=== PATIENT | male | born 1960 | race Caucasian/White ===

== ENCOUNTER 2020-06-09 17:23 | Inpatient (IN) | payer OTHER, SELFPAY ==
[2020-06-09] VITALS (7 sets, daily range): BP systolic 137–141; BP diastolic 71–74; PULSE 74–86; RESP 18–28; TEMP 37.2; O2SAT 90–98; BMI 22.3
--- NOTE | ~2020-06-09 | XR_ITS ---
EXAMINATION: PORTABLE CHEST 1 VIEW CLINICAL INFORMATION: SOB . COMPARISON: 06/24/2013. TECHNIQUE: Portable frontal view of the chest was obtained. FINDINGS: The lungs are well expanded. Patchy bilateral airspace disease is seen bilaterally, new from the prior study. No superimposed effusion, edema, or pneumothorax. Cardiac and mediastinal silhouettes are within normal limits for technique. No acute bony abnormality seen. XR/XR chest 1V IMPRESSION: Patchy bilateral airspace disease new from the prior study. Early or atypical infectious etiology would be suspected. Clinical correlation would be recommended.
--- NOTE | ~2020-06-09 | CT_ITS ---
EXAMINATION: CT CHEST WITHOUT CONTRAST CLINICAL INFORMATION: Shortness of breath. Atypical infection. COMPARISON: Chest x-ray earlier today TECHNIQUE: Multidetector volumetric CT imaging of the chest was done. Axial MIP volume rendering provided. Sagittal and coronal reformatted images were obtained. This CT examination was performed using dose optimization techniques as appropriate, variously including the following: *Automated exposure control *Adjustment of mA and/or kV according to patient size (this includes techniques or standardized protocols for targeted exams where dose is matched to indication/reason for exam; i.e. extremities or head) *Use of iterative reconstruction technique DLP: 328 mGy-cm FINDINGS: The heart is normal in size. Coronary artery calcifications are present. There is no pericardial effusion. No gross mediastinal lymphadenopathy. No axillary lymphadenopathy. Ascending aorta is normal in size although there is mild aneurysmal dilatation of the distal descending thoracic aorta which measures up to 3.8 cm in maximum dimension. Central airways are patent. Filling defect dependently within the trachea statistically represents mucus. Some minimal peripheral mucous plugging is noted. The lungs are adequately aerated. Moderate diffuse emphysematous changes are noted with bullous changes particularly within the apices. There is no lobar consolidation appreciated. Mild lingular and right middle lobe opacities are nonspecific but suspected to represent atelectasis. Mild dependent opacities bilaterally are nonspecific. No suspicious pulmonary nodules. Visualized portions of the upper abdomen demonstrate a partially visualized but atrophic left kidney. Bilateral renal calcifications are nonspecific but suspected to be vascular in nature. A right renal artery stent is noted. Tiny gallstones are appreciated within an otherwise unremarkable appearing gallbladder. Mild scoliotic and moderate diffuse degenerative changes of the spine. Partially visualized cervical fusion hardware. CT/CT chest wo con IMPRESSION: 1. Moderate emphysema. 2. Mild dependent opacities bilaterally are nonspecific. Atelectasis is suspected, however, developing infiltrate is not excluded. Clinical correlation recommended. Follow-up imaging can be obtained as clinically indicated. 3. 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 4. Cholelithiasis.
--- NOTE | 2020-06-09 17:39 | ECG_ITS ---
Test Reason : SOB Blood Pressure : / mmHG Vent. Rate : 078 BPM Atrial Rate : 078 BPM P-R Int : 168 ms QRS Dur : 086 ms QT Int : 398 ms P-R-T Axes : 066 021 068 degrees QTc Int : 453 ms Normal sinus rhythm Possible Left atrial enlargement Borderline ECG When compared with ECG of 24-JUN-2013 16:29, QT has shortened Referred By: Jesu Hurtado Electronically Signed By:HINA BRYANT
[2020-06-09] MEDS: Albuterol Sulfate (0.083%) 2.5 MG/3 ML VIAL.NEB 7.5 MG INHALE (17:43)
--- NOTE | 2020-06-09 17:43 | ED.SOB ---
HPI - SOB/Dyspnea General Chief Complaint: Dyspnea Stated Complaint: COPD EXACERBATION Time Seen by Provider: 06/09/20 17:39 Source: EMS Mode of arrival: EMS Limitations: no limitations History of Present Illness HPI Narrative: 52-year-old male with history of COPD on O2 chronically at 3 L at home in addition to this he has history of hypertension, alcohol abuse who states he has been sober for the past 1 year who reports more frequently goes to [facility] he was there last month for pneumonia and then last week as well he was treated for aspiration pneumonia did a course of antibiotic where he was taking 2 antibiotics he finished those several days ago. States today he was walking to his car he became short of breath and COPD flare. States lung feels tight having difficult time breathing. EMS found him to be 88% with 3 L oxygen also complained of chest pain subsequently was given 324 aspirin and brought to the emergency room. Of note he did have his 2nd [place] the vaccination yesterday. MD elicited complaint: shortness of breath and chest pain Pertinent past history: COPD Onset (ago): hour(s) Context: recent illness Timing: constant Severity: severe Exacerbating factors: exertion Relieving factors: bronchodilators Associated symptoms: chest pain, pain with inspiration, cough and wheezing Related Data Home oxygen amount: 3 liters Home Medications Medication Instructions Recorded Confirmed albuterol sulfate 1 amp INHALATION Q6H PRN 06/09/20 06/09/20 aspirin 1 tab PO DAILY 06/09/20 06/09/20 atorvastatin 1 tab PO BEDTIME 06/09/20 06/09/20 buprenorphine-naloxone 2 strip SUBLINGUAL DAILY 06/09/20 06/09/20 carvedilol 1 tab PO BID 06/09/20 06/09/20 clonazepam 1 tab PO DAILY PRN 06/09/20 06/09/20 clopidogrel 1 tab PO DAILY 06/09/20 06/09/20 folic acid 1 tab PO DAILY 06/09/20 06/09/20 gabapentin 1 tab PO BID 06/09/20 06/09/20 hydralazine 2 tab PO TID 06/09/20 06/09/20 ipratropium-albuterol [Combivent 1 puff INHALATION QID 06/09/20 06/09/20 Respimat] isosorbide mononitrate 1 tab PO QAM 06/09/20 06/09/20 losartan 1 tab PO DAILY 06/09/20 06/09/20 mirtazapine 1 tab PO BEDTIME 06/09/20 06/09/20 nifedipine 1 tab PO DAILY 06/09/20 06/09/20 pantoprazole 1 tab PO BID 06/09/20 06/09/20 trazodone 1 tab PO BEDTIME 06/09/20 06/09/20 zolpidem 1 tab PO BEDTIME PRN 06/09/20 06/09/20 Allergies Allergy/AdvReac Type Severity Reaction Status Date / Time KERI Inhibitors Allergy Wheezing Verified 06/09/20 17:52 HAIR DYE Allergy Unknown HIVES Uncoded 11/14/19 15:39 Review of Systems Review of Systems: Constitutional: No Weight loss, No Fever, No Chills, No Night Sweats, No Fatigue, No Malaise ENT/Mouth: No Hearing loss, No Ear Pain, No Nasal Congestion, No Sinus Pain, No Hoarseness, No sore throat, No Rhinorrhea, No Swallowing Difficulty Eyes: No Eye Pain, No Swelling, No Redness, No Foreign Body, No Discharge, No Vision Changes Cardiovascular: + Chest Pain, + Dyspnea on Exertion, No Orthopnea, No Edema, No Palpitations Respiratory: No Cough, No Sputum, No Wheezing, No Dyspnea Gastrointestinal: No Nausea, No Vomiting, No Diarrhea, No Constipation, No abdominal Pain, No Hematochezia, No Melena Genitourinary: no irregular bleeding, No Dysuria, No Urinary Frequency, No Hematuria, No Urinary Incontinence, No Urgency, No Flank Pain, No Urinary Flow Changes, No Hesitancy Musculoskeletal: No joint pain, No Myalgias, No Joint Swelling Skin: No Skin Lesions, No rash Neuro: No Weakness, No Numbness, No Paresthesias, No Loss of Consciousness, No Dizziness, No Headache Psych: No Social Issues Heme/Lymph: No Bruising, No Bleeding,No Lymphadenopathy Endocrine: No Polyuria, No Polydipsia, No Temperature Intolerance Yes all other systems are reviewed and are negative [facility] Past Medical History Medical History (Updated 06/09/20 @ 22:32 by Jesu Hurtado NP) Alcohol abuse Congestive heart failure COPD (chronic obstructive pulmonary disease) Impetigo Social History Social History Alcohol intake: never Smoking Status: Current every day smoker Use of substances other than those prescribed or required for medical reasons: Yes Substance Use Type: Marijuana Substance Use Frequency: Occasionally Advance Directives: No Physical Exam Vital Signs: Vital Signs: Last Vital Signs Temp 98.9 F 06/09/20 20:55 Pulse 86 06/09/20 20:55 Resp 18 06/09/20 20:55 BP 137/71 06/09/20 20:55 Pulse Ox 94 06/09/20 20:55 Body Mass Index 22.3 Reviewed Const: General: in distress (Moderate; speaking in 2 word sentences and tachypneic 88% on 3 L) respiratory and anxious; No intoxicated appearing Nutritional Appearance: average body habitus Orientation/consciousness: patient oriented x3 HENMT: Head: Yes normal to inspection Ears: hearing grossly normal bilaterally Eyes: General: appearance normal, both eyes and all related structures Visual Golden: normal visual golden by confrontation Neck: Neck: Yes normal visual inspection, No positive Brudzinski's sign, No positive Kernig's sign and No tender Thyroid: Thyroid normal Chest: Chest palpation & inspection: normal inspection of the chest Resp: Effort & Inspection: normal respiratory effort and respiratory distress Auscultation: wheezes and diminished lung sounds Cardio: Jugular venous distension: no JVD Rate: tachycardic Heart sounds: S1 normal heart sound present and S2 normal heart sound present GI: Inspection: Yes normal to inspection Palpation (GI): Soft to palpation Percussion: Yes normal to percussion Auscultation: normal bowel sounds : General: Yes no CVA tenderness Back/Spine/Pelvis: Back: no CVA tenderness Skin: General skin exam: no rashes or lesions noted Neuro: General: patient oriented x3 Extrem: General: Yes normal to inspection Course Reevaluation(s) Reevaluation #1: 1800 In review 52-year-old male with above history presenting in moderate respiratory distress having COPD flare on home O2 88% on 3 L Recent hospitalization according to him at [facility] for aspiration pneumonia was doing well just finish course of 2 antibiotics Lab work including cardiac enzymes, lactic acid, blood culture, COVID started occasion labs ordered. Chest x-ray EKG ordered. Given his recent hospitalization and reported history sepsis focus workup initiated. He is placed on a 7 mg albuterol updraft directly upon arrival, Solu Medrol 125 Clinically does not appear in fluid overload. Infection is suspected will await labs including lactic acid and blood cultures and thereafter empirically treat with Zosyn and vancomycin. Reevaluation #2: 1928 Labs are still pending and have not been drawn yet. RN at bedside doing this at this time Zosyn and vancomycin ordered. Chest x-ray Patchy bilateral airspace disease new from the prior study. Early or atypical infectious etiology would be suspected. Clinical correlation would be recommended. Chest CT ordered. On exam he feels and appears much better than arrival. I will discuss case with hospitalist for admission. Consultations Consultation #1: 1934 Case discussed with hospitalist for admission aware that workup is pending but likely will need to come in for admission given his presentation and history. Dr. Portillo will come evaluate the patient for admission. MDM - SOB/Dyspnea Differential Diagnosis Differential diagnosis: Likely acute exacerbation of chronic obstructive airways disease, pneumonia and asthma with exacerbation; Unlikely pulmonary embolism, pleural effusion and sleep apnea Medical Records Attestation: I reviewed the patient's medical records. Lab Data Attestation: I reviewed the patient's lab results. Result diagrams: 06/09/20 19:30 06/09/20 19:44 Labs: Lab Results 06/09/20 06/09/20 06/09/20 Range/Units 19:30 19:30 19:30 WBC 14.5 H (4.8-10.8) X10*3/uL RBC 3.71 L (4.60-5.80) X10*6/uL Hgb 11.4 L (14.0-18.0) g/dl Hct 37.4 L (42-52) % MCV 100.8 H (80-98) fL MCH 30.7 (27.0-33.0) pg MCHC 30.5 L (31.0-36.0) g/dl RDW 14.4 (11.0-16.0) % Plt Count 330 (160-400) X10*3/uL MPV 9.9 (9.4-12.4) fL Immature Gran % (Auto) 0.4 (0.0-0.4) % Neut % (Auto) 80.2 H (45-73) % Lymph % (Auto) 9.8 L (20-40) % [place] % (Auto) 9.3 (2-11) % Eos % (Auto) 0.1 (0-4) % Baso % (Auto) 0.2 (0-2) % Lymph # (Auto) 1.4 (1.2-4.9) X10*3/uL [place] # (Auto) 1.3 H (0.1-1.2) X10*3/uL Eos # (Auto) 0.0 (0.0-0.4) X10*3/uL Baso # (Auto) 0.0 (0.0-0.2) X10*3/uL Abs Immat Gran (auto) 0.06 H (0.00-0.03) X10*3/uL Absolute Neuts (auto) 11.6 H (2.0-8.3) X10*3/uL Absolute Nucleated RBC 0.000 (0.0-0.012) X10*3/uL Nucleated RBC % (auto) 0.0 (0.0-0.2) /100WBC PT 11.1 (10.8-13.0) SEC INR 0.9 (0.9-1.1) APTT 31.2 (24.1-38.0) SEC D-Dimer 720 NG/ML O2 Saturation % ABG pH at Pt Temp (7.35-7.45) ABG pH (Temp Correct) (7.35-7.45) ABG pCO2 at Pt Temp (32-45) mmHg ABG pCO2 (Temp Corrct (32-45) mmHg ABG pO2 at Pt Temp (83-108) mmHg ABG pO2 (Temp Correct (83-108) ABG HCO3 (22-26) mmol/L ABG Base Excess (Actual) mmol/L Sodium Cancelled Potassium Cancelled Chloride Cancelled Carbon Dioxide Cancelled Anion Gap Cancelled BUN Cancelled Creatinine Cancelled Estim Creat Clear Calc Cancelled Estimated GFR Cancelled Random Glucose Cancelled Lactic Acid (0.5-2.0) mmol/L Calcium Cancelled Ferritin (20-250) ng/mL Total Bilirubin Cancelled AST Cancelled ALT Cancelled Alkaline Phosphatase Cancelled Lactate Dehydrogenase (118-273) U/L Troponin I High Sens (<3.5-35.0) ng/L C-Reactive Protein (< or = 0.50) mg/dL B-Natriuretic Peptide (<100) pg/mL Total Protein Cancelled Albumin Cancelled Procalcitonin ng/mL Urine Color Urine Appearance Urine pH (5.0-8.0) Ur Specific Crawford (1.005-1.025) Urine Protein (NEG-TRACE) MG/DL Urine Glucose (UA) (NEG) MG/DL Urine Ketones (NEG) MG/DL Urine Blood (NEG) Urine Nitrite (NEG) Ur Leukocyte Esterase (NEG) Urine RBC (0) /HPF Urine WBC (0-4) /HPF Ur Squamous Epith Cells /LPF Urine Bacteria /LPF Coronavirus (PCR) (Negative) Influenza Type A (PCR) (Negative) Influenza Type B (PCR) (Negative) RSV RNA Qual (PCR) (Negative) 06/09/20 06/09/20 06/09/20 Range/Units 19:30 19:30 19:31 WBC (4.8-10.8) X10*3/uL RBC (4.60-5.80) X10*6/uL Hgb (14.0-18.0) g/dl Hct (42-52) % MCV (80-98) fL MCH (27.0-33.0) pg MCHC (31.0-36.0) g/dl RDW (11.0-16.0) % Plt Count (160-400) X10*3/uL MPV (9.4-12.4) fL Immature Gran % (Auto) (0.0-0.4) % Neut % (Auto) (45-73) % Lymph % (Auto) (20-40) % [place] % (Auto) (2-11) % Eos % (Auto) (0-4) % Baso % (Auto) (0-2) % Lymph # (Auto) (1.2-4.9) X10*3/uL [place] # (Auto) (0.1-1.2) X10*3/uL Eos # (Auto) (0.0-0.4) X10*3/uL Baso # (Auto) (0.0-0.2) X10*3/uL Abs Immat Gran (auto) (0.00-0.03) X10*3/uL Absolute Neuts (auto) (2.0-8.3) X10*3/uL Absolute Nucleated RBC (0.0-0.012) X10*3/uL Nucleated RBC % (auto) (0.0-0.2) /100WBC PT (10.8-13.0) SEC INR (0.9-1.1) APTT (24.1-38.0) SEC D-Dimer NG/ML O2 Saturation % ABG pH at Pt Temp (7.35-7.45) ABG pH (Temp Correct) (7.35-7.45) ABG pCO2 at Pt Temp (32-45) mmHg ABG pCO2 (Temp Corrct (32-45) mmHg ABG pO2 at Pt Temp (83-108) mmHg ABG pO2 (Temp Correct (83-108) ABG HCO3 (22-26) mmol/L ABG Base Excess (Actual) mmol/L Sodium Potassium Chloride Carbon Dioxide Anion Gap BUN Creatinine Estim Creat Clear Calc Estimated GFR Random Glucose Lactic Acid 0.5 (0.5-2.0) mmol/L Calcium Ferritin (20-250) ng/mL Total Bilirubin AST ALT Alkaline Phosphatase Lactate Dehydrogenase (118-273) U/L Troponin I High Sens 20.9 (<3.5-35.0) ng/L C-Reactive Protein (< or = 0.50) mg/dL B-Natriuretic Peptide 143 H (<100) pg/mL Total Protein Albumin Procalcitonin ng/mL Urine Color YELLOW Urine Appearance CLEAR Urine pH 7.0 (5.0-8.0) Ur Specific Crawford 1.015 (1.005-1.025) Urine Protein NEG (NEG-TRACE) MG/DL Urine Glucose (UA) NEG (NEG) MG/DL Urine Ketones NEG (NEG) MG/DL Urine Blood NEG (NEG) Urine Nitrite NEG (NEG) Ur Leukocyte Esterase NEG (NEG) Urine RBC 0 (0) /HPF Urine WBC 0 (0-4) /HPF Ur Squamous Epith Cells NONE /LPF Urine Bacteria NONE /LPF Coronavirus (PCR) (Negative) Influenza Type A (PCR) (Negative) Influenza Type B (PCR) (Negative) RSV RNA Qual (PCR) (Negative) 06/09/20 06/09/20 06/09/20 Range/Units 19:43 19:44 19:44 WBC (4.8-10.8) X10*3/uL RBC (4.60-5.80) X10*6/uL Hgb (14.0-18.0) g/dl Hct (42-52) % MCV (80-98) fL MCH (27.0-33.0) pg MCHC (31.0-36.0) g/dl RDW (11.0-16.0) % Plt Count (160-400) X10*3/uL MPV (9.4-12.4) fL Immature Gran % (Auto) (0.0-0.4) % Neut % (Auto) (45-73) % Lymph % (Auto) (20-40) % [place] % (Auto) (2-11) % Eos % (Auto) (0-4) % Baso % (Auto) (0-2) % Lymph # (Auto) (1.2-4.9) X10*3/uL [place] # (Auto) (0.1-1.2) X10*3/uL Eos # (Auto) (0.0-0.4) X10*3/uL Baso # (Auto) (0.0-0.2) X10*3/uL Abs Immat Gran (auto) (0.00-0.03) X10*3/uL Absolute Neuts (auto) (2.0-8.3) X10*3/uL Absolute Nucleated RBC (0.0-0.012) X10*3/uL Nucleated RBC % (auto) (0.0-0.2) /100WBC PT (10.8-13.0) SEC INR (0.9-1.1) APTT (24.1-38.0) SEC D-Dimer NG/ML O2 Saturation % ABG pH at Pt Temp (7.35-7.45) ABG pH (Temp Correct) (7.35-7.45) ABG pCO2 at Pt Temp (32-45) mmHg ABG pCO2 (Temp Corrct (32-45) mmHg ABG pO2 at Pt Temp (83-108) mmHg ABG pO2 (Temp Correct (83-108) ABG HCO3 (22-26) mmol/L ABG Base Excess (Actual) mmol/L Sodium 142 Potassium 3.7 Chloride 87 L Carbon Dioxide 42 H* Anion Gap 17 BUN 19 H Creatinine 1.27 Estim Creat Clear Calc 65.0 Estimated GFR 58 Random Glucose 114 Lactic Acid (0.5-2.0) mmol/L Calcium 9.0 Ferritin 12 L (20-250) ng/mL Total Bilirubin 0.2 AST 14 ALT 12 Alkaline Phosphatase 59 Lactate Dehydrogenase 172 (118-273) U/L Troponin I High Sens (<3.5-35.0) ng/L C-Reactive Protein 0.30 (< or = 0.50) mg/dL B-Natriuretic Peptide (<100) pg/mL Total Protein 6.5 Albumin 4.2 Procalcitonin 0.03 ng/mL Urine Color Urine Appearance Urine pH (5.0-8.0) Ur Specific [place] (1.005-1.025) Urine Protein (NEG-TRACE) MG/DL Urine Glucose (UA) (NEG) MG/DL Urine Ketones (NEG) MG/DL Urine Blood (NEG) Urine Nitrite (NEG) Ur Leukocyte Esterase (NEG) Urine RBC (0) /HPF Urine WBC (0-4) /HPF Ur Squamous Epith Cells /LPF Urine Bacteria /LPF Coronavirus (PCR) NEGATIVE (Negative) Influenza Type A (PCR) NEGATIVE (Negative) Influenza Type B (PCR) NEGATIVE (Negative) RSV RNA Qual (PCR) NEGATIVE (Negative) 06/09/20 Range/Units 20:51 WBC (4.8-10.8) X10*3/uL RBC (4.60-5.80) X10*6/uL Hgb (14.0-18.0) g/dl Hct (42-52) % MCV (80-98) fL MCH (27.0-33.0) pg MCHC (31.0-36.0) g/dl RDW (11.0-16.0) % Plt Count (160-400) X10*3/uL MPV (9.4-12.4) fL Immature Gran % (Auto) (0.0-0.4) % Neut % (Auto) (45-73) % Lymph % (Auto) (20-40) % [place] % (Auto) (2-11) % Eos % (Auto) (0-4) % Baso % (Auto) (0-2) % Lymph # (Auto) (1.2-4.9) X10*3/uL [place] # (Auto) (0.1-1.2) X10*3/uL Eos # (Auto) (0.0-0.4) X10*3/uL Baso # (Auto) (0.0-0.2) X10*3/uL Abs Immat Gran (auto) (0.00-0.03) X10*3/uL Absolute Neuts (auto) (2.0-8.3) X10*3/uL Absolute Nucleated RBC (0.0-0.012) X10*3/uL Nucleated RBC % (auto) (0.0-0.2) /100WBC PT (10.8-13.0) SEC INR (0.9-1.1) APTT (24.1-38.0) SEC D-Dimer NG/ML O2 Saturation 94.0 % ABG pH at Pt Temp 7.35 (7.35-7.45) ABG pH (Temp Correct) 7.35 (7.35-7.45) ABG pCO2 at Pt Temp 98 H* (32-45) mmHg ABG pCO2 (Temp Corrct 99 H* (32-45) mmHg ABG pO2 at Pt Temp 74 L (83-108) mmHg ABG pO2 (Temp Correct 75 L (83-108) ABG HCO3 55 H (22-26) mmol/L ABG Base Excess (Actual) 23.6 mmol/L Sodium Potassium Chloride Carbon Dioxide Anion Gap BUN Creatinine Estim Creat Clear Calc Estimated GFR Random Glucose Lactic Acid (0.5-2.0) mmol/L Calcium Ferritin (20-250) ng/mL Total Bilirubin AST ALT Alkaline Phosphatase Lactate Dehydrogenase (118-273) U/L Troponin I High Sens (<3.5-35.0) ng/L C-Reactive Protein (< or = 0.50) mg/dL B-Natriuretic Peptide (<100) pg/mL Total Protein Albumin Procalcitonin ng/mL Urine Color Urine Appearance Urine pH (5.0-8.0) Ur Specific [place] (1.005-1.025) Urine Protein (NEG-TRACE) MG/DL Urine Glucose (UA) (NEG) MG/DL Urine Ketones (NEG) MG/DL Urine Blood (NEG) Urine Nitrite (NEG) Ur Leukocyte Esterase (NEG) Urine RBC (0) /HPF Urine WBC (0-4) /HPF Ur Squamous Epith Cells /LPF Urine Bacteria /LPF Coronavirus (PCR) (Negative) Influenza Type A (PCR) (Negative) Influenza Type B (PCR) (Negative) RSV RNA Qual (PCR) (Negative) Imaging Data Chest CT: Radiologist's impression: Jose Luis Alex 60 M [address] [id number] Scan ReportSigned Patient: Jose Luis Alex JMR#: [id number]: [id number]:[id number]/Sex: 60 / MADM Date: 06/09/20Loc: EDAttending Dr: Ordering Physician: Jesu Hurtado NP Date of Service: 06/09/20 Procedure(s): CT chest wo con Accession Number(s): [id number] cc: Jesu Hurtado LOCKSTITCH COLLAR SETTER~ EXAMINATION: CT CHEST WITHOUT CONTRAST CLINICAL INFORMATION: Shortness of breath. Atypical infection. COMPARISON: Chest x-ray earlier today TECHNIQUE: Multidetector volumetric CT imaging of the chest was done. Axial MIP volume rendering provided. Sagittal and coronal reformatted images were obtained. This CT examination was performed using dose optimization techniques as appropriate, variously including the following: *Automated exposure control *Adjustment of mA and/or kV according to patient size (this includes techniques or standardized protocols for targeted exams where dose is matched to indication/reason for exam; i.e. extremities or head) *Use of iterative reconstruction technique DLP: 328 mGy-cm FINDINGS: The heart is normal in size. Coronary artery calcifications are present. There is no pericardial effusion. No gross mediastinal lymphadenopathy. No axillary lymphadenopathy. Ascending aorta is normal in size although there is mild aneurysmal dilatation of the distal descending thoracic aorta which measures up to 3.8 cm in maximum dimension. Central airways are patent. Filling defect dependently within the trachea statistically represents mucus. Some minimal peripheral mucous plugging is noted. The lungs are adequately aerated. Moderate diffuse emphysematous changes are noted with bullous changes particularly within the apices. There is no lobar consolidation appreciated. Mild lingular and right middle lobe opacities are nonspecific but suspected to represent atelectasis. Mild dependent opacities bilaterally are nonspecific. No suspicious pulmonary nodules. Visualized portions of the upper abdomen demonstrate a partially visualized but atrophic left kidney. Bilateral renal calcifications are nonspecific but suspected to be vascular in nature. A right renal artery stent is noted. Tiny gallstones are appreciated within an otherwise unremarkable appearing gallbladder. Mild scoliotic and moderate diffuse degenerative changes of the spine. Partially visualized cervical fusion hardware. CT/CT chest wo con IMPRESSION: 1. Moderate emphysema. 2. Mild dependent opacities bilaterally are nonspecific. Atelectasis is suspected, however, developing infiltrate is not excluded. Clinical correlation recommended. Follow-up imaging can be obtained as clinically indicated. 3. 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 4. Cholelithiasis. Dictated By:FISH CLAY MDSigned By:<Electronically signed by FISH CLAY MD in [place]>06/09/202056 DD/ 29TD/TT: [employer] Supervisor: Chest x-ray: Radiologist's impression: [address] [id number] ReportSigned Patient: Jose Luis Alex JMR#: [id number]: 1960cct:[id number]/Sex: 60 / MADM Date: 06/09/20Loc: EDAttending Dr: Ordering Physician: Jesu Hurtado NP Date of Service: 06/09/20 Procedure(s): XR chest 1V Accession Number(s): [id number] cc: Jesu Hurtado LOCKSTITCH COLLAR SETTER~ EXAMINATION: PORTABLE CHEST 1 VIEW CLINICAL INFORMATION: SOB . COMPARISON: 06/24/2013. TECHNIQUE: Portable frontal view of the chest was obtained. FINDINGS: The lungs are well expanded. Patchy bilateral airspace disease is seen bilaterally, new from the prior study. No superimposed effusion, edema, or pneumothorax. Cardiac and mediastinal silhouettes are within normal limits for technique. No acute bony abnormality seen. XR/XR chest 1V IMPRESSION: Patchy bilateral airspace disease new from the prior study. Early or atypical infectious etiology would be suspected. Clinical correlation would be recommended. Dictated By:ARY ANAND MDSigned By:<Electronically signed by ARY ANAND MD in [place]>06/09/20 1755 DD/ 1739TD/TT: [employer] Supervisor: SIDNEY Discharge Plan Discharge Clinical Impression: COPD exacerbation Patient Disposition: Admitted As Inpatient
[2020-06-09 19:39] LABS: Appearance Urine CLEAR; Color Urine YELLOW; Glucose Urine UA NEG (NEG); Leukocyte Esterase Urine NEG (NEG); Nitrite Urine NEG (NEG); Specific Gravity - Urine 1.015 (1.005-1.025); Urine Blood NEG (NEG); Urine Ketones NEG (NEG); Urine Protein NEG (NEG-TRACE)
[2020-06-09 19:44] LABS: MANUAL DIFF FLAG NO
[2020-06-09 19:45] LABS: Basophils Percent Auto 0.2 % (0-2); Eosinophils Percent Auto 0.1 % (0-4); Hematocrit 37.4 % (42-52); Hemoglobin 11.4 g/dl (14.0-18.0); INTERNATIONAL NORM RATIO 0.9 (0.9-1.1); Imm Gran Abs Auto 0.06 X10*3/uL (0.00-0.03); Imm Gran Pct Auto 0.4 % (0.0-0.4); Lymphocytes Absolute Auto 1.4 X10*3/uL (1.2-4.9); Lymphocytes Percent Auto 9.8 % (20-40); Mean Corpuscular HGB Conc 30.5 g/dl (31.0-36.0); Mean Corpuscular Hemoglobin 30.7 pg (27.0-33.0); Mean Corpuscular Volume 100.8 fL (80-98); Mean Platelet Volume 9.9 fL (9.4-12.4); Monocytes Absolute Auto 1.3 X10*3/uL (0.1-1.2); Monocytes Percent Auto 9.3 % (2-11); Neutrophils Absolute Auto 11.6 X10*3/uL (2.0-8.3); Neutrophils Percent Auto 80.2 % (45-73); Platelet Count 330 X10*3/uL (160-400); Prothrombin Time 11.1 SEC (10.8-13.0); Red Blood Count 3.71 X10*6/uL (4.60-5.80); Red Cell Distribution Width 14.4 % (11.0-16.0); White Blood Count 14.5 X10*3/uL (4.8-10.8)
[2020-06-09 19:46] LABS: RBC Urine 0 /HPF (0); WBC Urine 0 /HPF (0-4)
[2020-06-09 19:48] LABS: D Dimer 720 NG/ML; Partial Thromboplastin Time 31.2 SEC (24.1-38.0)
[2020-06-09] MEDS: 0.9 % Sodium Chloride 500 ML IV (19:48)
[2020-06-09] MEDS: methylPREDNISolone Sod Succ 125 MG/2 ML VIAL IVPUSH (19:48)
[2020-06-09] MEDS: Piperacillin Sodium/Tazobactam 3.375 GM in 0.9 % Sodium Chloride 50 ML IV (19:48)
[2020-06-09 20:03] LABS: Lactic Acid 0.5 mmol/L (0.5-2.0)
[2020-06-09 20:13] LABS: B Type Natriuretic Peptide 143 pg/mL (<100); Troponin-I High Sensitivity 20.9 ng/L (<3.5-35.0)
[2020-06-09 20:25] LABS: Alanine Aminotransferase 12 U/L (0-40); Albumin Level 4.2 g/dL (3.5-5.0); Alkaline Phosphatase 59 U/L (39-117); Aspartate Amino Transferase 14 U/L (5-37); Bilirubin Total 0.2 mg/dL (0.0-1.0); Blood Urea Nitrogen 19 mg/dL (9-16); Estimated Glomerular Filt Rate 58; Glucose Random 114 mg/dL (60-115); Total Protein 6.5 g/dL (6.5-8.0)
[2020-06-09 20:33] LABS: Influenza A PCR NEGATIVE (Negative); Influenza B PCR NEGATIVE (Negative); Resp Syncy Virus RNA Qual PCR NEGATIVE (Negative); SARS COV2 PCR INHOUSE NEGATIVE (Negative)
[2020-06-09 20:39] LABS: Anion Gap 17 (12-20); Carbon Dioxide 42 mmol/L (22-29); Chloride 87 mmol/L (96-108); Lactate Dehydrogenase 172 U/L (118-273); Potassium 3.7 mmol/L (3.3-5.1); Sodium 142 mmol/L (135-145)
[2020-06-09 20:40] LABS: Procalcitonin 0.03 ng/mL
[2020-06-09] MEDS: vancomycin HCL 1,000 MG in 0.9 % Sodium Chloride 250 ML 270 MG IV (20:40)
[2020-06-09] MEDS: clonazePAM 0.5 MG TABLET PO (20:40)
--- NOTE | 2020-06-09 20:40 | PC.NURSE ---
Vancomycin delayed as patient was in CT. Medication administered per emar as noted
[2020-06-09 20:43] LABS: Ferritin 12 ng/mL (20-250)
[2020-06-09 21:00] LABS: ABG Refer to POC result
[2020-06-09 21:00] LABS: ABG Base Excess 23.6 mmol/L; ABG HCO3 55 mmol/L (22-26); ABG pCO2 98 mmHg (32-45); ABG pCO2 TC 99 mmHg (32-45); ABG pH 7.35 (7.35-7.45); ABG pH TC 7.35 (7.35-7.45); ABG pO2 74 mmHg (83-108); ABG pO2 TC 75 (83-108)
--- NOTE | 2020-06-09 21:14 | PM.IMHP ---
History of Present Illness Date of Service: 06/09/20 Chief Complaint: SOB 60-year-old male with a past medical history of hypertension, hyperlipidemia, opiate dependence on Suboxone, COPD on 3 L of home oxygen, presented to the hospital with a chief complaint of shortness of breath. Patient mentioned that when he was getting into the car he suddenly felt short of breath and subsequently had a panic episode, called EMS and presented to the ER for further evaluation. Patient denies any fever chills cough. Patient mentioned that he was recently discharged from the [facility] about a week ago and finished a course of antibiotics for pneumonia. Denies any chest pain palpitations lightheadedness or dizziness at the time of my interview. Patient mentions that his sleep breathing improved significantly after came to the ER. Review of all other systems is negative except mentioned above ER course: Per ER team patient was noted to be tachypnea and mildly in respiratory distress, saturating 88% on 3 L of oxygen. Given Solu-Medrol nebulizations and antibiotics a chest x-ray showed new infiltrates. Mention the patient respiratory status improved. Admitted to the hospital for further management. Troponin pending. REPLACED BY [facility] Medical History (Updated 06/21/20 @ 11:16 by Johnson Panchal MD) Alcohol abuse Chronic hypercapnic respiratory failure Chronic respiratory failure with hypoxia and hypercapnia Congestive heart failure COPD (chronic obstructive pulmonary disease) COPD exacerbation Impetigo Social History Household Members: None Housing: House Do you presently have visiting nurse or other home services: Yes Alcohol intake: former Smoking Status: Current some day smoker Tobacco Type: Cigarette Packs Per Day: 1 Cigarettes Per Day: 4 Years Smoked: 30 Smoked in Last 30 Days: Yes Patient Interested in Nicotine Replacement: Yes Patient Given Instructions on How to Stop Smoking: No Second Hand Smoke Exposure: Yes Use of substances other than those prescribed or required for medical reasons: No Substance Use Type: Marijuana Currently Displaying Signs/Symptoms of Drug Intoxication Withdrawal: No Any prior treatment program specific to substance use: Yes (on suboxone) Have you been hit, kicked, punched, or otherwise hurt by someone within the past year? If so, by whom?: No Do you feel safe in your current relationship?: Yes Is there a partner from a previous relationship who is making you feel unsafe now?: No Are you made to feel afraid or neglected: No Spiritual Healthcare Practices: none Bahai Healthcare Practices: none Cultural Healthcare Practices: none Advance Directives: No Advance Directives Information Provided: No Do you have thoughts of harming others: None Do you have a plan to hurt others: No Plan Recently lost weight without trying: No service: No Current occupational status: disabled Meds Allergies Allergy/AdvReac Type Severity Reaction Status Date / Time KERI Inhibitors Allergy Wheezing Verified 06/09/20 17:52 HAIR DYE Allergy Unknown HIVES Uncoded 11/14/19 15:39 Active Medications: Current Medications Generic Name Dose Route Start Last Admin Trade Name Freq PRN Reason Stop Dose Admin Acetaminophen 650 mg 06/09/20 20:55 Acetaminophen 325 Mg Tablet PO Q6H PRN Pain, Mild (Pain Scale 1-3) Albuterol/Ipratropium 3 ml 06/09/20 20:57 Albuterol/Iprat 2.5/0.5mg 3 Ml Ampul.Neb INHALE Q4H PRN Shortness of Breath/Wheezing Albuterol/Ipratropium 3 ml 06/10/20 08:00 Albuterol/Iprat 2.5/0.5mg 3 Ml Ampul.Neb INHALE RQ6H WHILE AWAKE ALEXUS Docusate Sodium 100 mg 06/09/20 20:55 Docusate Sodium 100 Mg Capsule PO DAILY PRN Constipation Famotidine 20 mg 06/10/20 09:00 Famotidine 20 Mg Tablet PO DAILY [facility] Vancomycin HCl 1,000 mg/ 270 mls @ 270 mls/hr 06/09/20 21:00 Sodium Chloride IV Q12H [facility] Piperacillin Sod/Tazobactam 50 mls @ 100 mls/hr 06/10/20 01:00 Sod 3.375 gm/ Sodium Chloride IV Q6H [facility] Methylprednisolone Sodium Succinate 60 mg 06/09/20 21:00 Methylprednisolone Sod Succ 125 Mg/2 Ml Vial IVPUSH Q8H [facility] Pharmacy Consult 1 each 06/09/20 19:58 Consult Rx Perform Med Rec MISCELLANE 06/09/20 19:59 ONCE STA Pharmacy Consult 1 each 06/09/20 20:57 Consult Rx Vancomycin Dosing MISCELLANE DAILY PRN Consult order Sodium Chloride 3 ml 06/10/20 00:00 0.9 % Sodium Chloride Flush 3 Ml Syringe IVFLUSH QSHIFT [facility] Home Medications Medication Instructions Recorded Confirmed Last Taken Type Combivent Respimat 1 puff INHALATION QID 06/09/20 06/20/20 Unknown History albuterol sulfate 1 amp INHALATION Q6H PRN 06/09/20 06/20/20 Unknown History aspirin 1 tab PO DAILY 06/09/20 06/20/20 Unknown History atorvastatin 1 tab PO BEDTIME 06/09/20 06/20/20 Unknown History buprenorphine-naloxone 2 strip SUBLINGUAL DAILY 06/09/20 06/20/20 Unknown History carvedilol 1 tab PO BID 06/09/20 06/20/20 Unknown History clonazepam 1 tab PO DAILY PRN 06/09/20 06/20/20 Unknown History clopidogrel 1 tab PO DAILY 06/09/20 06/20/20 Unknown History folic acid 1 tab PO DAILY 06/09/20 06/20/20 Unknown History gabapentin 1 tab PO BID 06/09/20 06/20/20 Unknown History hydralazine 2 tab PO TID 06/09/20 06/20/20 Unknown History isosorbide mononitrate 1 tab PO QAM 06/09/20 06/20/20 Unknown History losartan 1 tab PO DAILY 06/09/20 06/20/20 Unknown History nifedipine 1 tab PO DAILY 06/09/20 06/20/20 Unknown History pantoprazole 1 tab PO BID 06/09/20 06/20/20 Unknown History trazodone 1 tab PO BEDTIME 06/09/20 06/20/20 Unknown History zolpidem 1 tab PO BEDTIME PRN 06/09/20 06/20/20 Unknown History nicotine 1 patch TOPICAL DAILY 06/20/20 06/20/20 Unknown History Physical Exam Vital Signs and Narrative: Vital Signs: Last Vital Signs Temp 98.9 F 06/09/20 17:53 Pulse 82 06/09/20 20:05 Resp 19 06/09/20 20:05 BP 137/71 06/09/20 20:05 Pulse Ox 98 06/09/20 20:05 Body Mass Index 22.3 Gen: Appears be in no acute distress; able to speak in full sentences. On supplemental oxygen. HEENT: NCAT, Moist mucosa. Pulmonary: Diminished breath sounds. CVS: Normal S1-S2 Abdomen: BS+, Soft, Nontender Extremities: Warm well perfused Neuro: Alert and awake. Results Labs CBC and Chem 7: 06/12/20 05:43 06/12/20 05:43 Labs: Laboratory Results - last 24 hr 06/09/20 06/09/20 06/09/20 19:30 19:30 19:30 MCV 100.8 H MCH 30.7 MCHC 30.5 L RDW 14.4 Plt Count 330 MPV 9.9 Immature Gran % (Auto) 0.4 Neut % (Auto) 80.2 H Lymph % (Auto) 9.8 L [place] % (Auto) 9.3 Eos % (Auto) 0.1 Baso % (Auto) 0.2 Lymph # (Auto) 1.4 [place] # (Auto) 1.3 H Eos # (Auto) 0.0 Baso # (Auto) 0.0 Abs Immat Gran (auto) 0.06 H Absolute Neuts (auto) 11.6 H Absolute Nucleated RBC 0.000 Nucleated RBC % (auto) 0.0 PT 11.1 INR 0.9 APTT 31.2 D-Dimer 720 O2 Saturation ABG pH at Pt Temp ABG pH (Temp Correct) ABG pCO2 at Pt Temp ABG pCO2 (Temp Corrct ABG pO2 at Pt Temp ABG pO2 (Temp Correct ABG HCO3 ABG Base Excess (Actual) Anion Gap Cancelled Estim Creat Clear Calc Cancelled Estimated GFR Cancelled Random Glucose Cancelled Lactic Acid Calcium Cancelled Ferritin Total Bilirubin Cancelled AST Cancelled ALT Cancelled Alkaline Phosphatase Cancelled Lactate Dehydrogenase Troponin I High Sens C-Reactive Protein B-Natriuretic Peptide Total Protein Cancelled Albumin Cancelled Procalcitonin Urine Color Urine Appearance Urine pH Ur Specific [place] Urine Protein Urine Glucose (UA) Urine Ketones Urine Blood Urine Nitrite Ur Leukocyte Esterase Urine RBC Urine WBC Ur Squamous Epith Cells Urine Bacteria Coronavirus (PCR) Influenza Type A (PCR) Influenza Type B (PCR) RSV RNA Qual (PCR) 06/09/20 06/09/20 06/09/20 19:30 19:30 19:31 MCV MCH MCHC RDW Plt Count MPV Immature Gran % (Auto) Neut % (Auto) Lymph % (Auto) [place] % (Auto) Eos % (Auto) Baso % (Auto) Lymph # (Auto) [place] # (Auto) Eos # (Auto) Baso # (Auto) Abs Immat Gran (auto) Absolute Neuts (auto) Absolute Nucleated RBC Nucleated RBC % (auto) PT INR APTT D-Dimer O2 Saturation ABG pH at Pt Temp ABG pH (Temp Correct) ABG pCO2 at Pt Temp ABG pCO2 (Temp Corrct ABG pO2 at Pt Temp ABG pO2 (Temp Correct ABG HCO3 ABG Base Excess (Actual) Anion Gap Estim Creat Clear Calc Estimated GFR Random Glucose Lactic Acid 0.5 Calcium Ferritin Total Bilirubin AST ALT Alkaline Phosphatase Lactate Dehydrogenase Troponin I High Sens 20.9 C-Reactive Protein B-Natriuretic Peptide 143 H Total Protein Albumin Procalcitonin Urine Color YELLOW Urine Appearance CLEAR Urine pH 7.0 Ur Specific [place] 1.015 Urine Protein NEG Urine Glucose (UA) NEG Urine Ketones NEG Urine Blood NEG Urine Nitrite NEG Ur Leukocyte Esterase NEG Urine RBC 0 Urine WBC 0 Ur Squamous Epith Cells NONE Urine Bacteria NONE Coronavirus (PCR) Influenza Type A (PCR) Influenza Type B (PCR) RSV RNA Qual (PCR) 06/09/20 06/09/20 06/09/20 19:43 19:44 19:44 MCV MCH MCHC RDW Plt Count MPV Immature Gran % (Auto) Neut % (Auto) Lymph % (Auto) [place] % (Auto) Eos % (Auto) Baso % (Auto) Lymph # (Auto) [place] # (Auto) Eos # (Auto) Baso # (Auto) Abs Immat Gran (auto) Absolute Neuts (auto) Absolute Nucleated RBC Nucleated RBC % (auto) PT INR APTT D-Dimer O2 Saturation ABG pH at Pt Temp ABG pH (Temp Correct) ABG pCO2 at Pt Temp ABG pCO2 (Temp Corrct ABG pO2 at Pt Temp ABG pO2 (Temp Correct ABG HCO3 ABG Base Excess (Actual) Anion Gap 17 Estim Creat Clear Calc 65.0 Estimated GFR 58 Random Glucose 114 Lactic Acid Calcium 9.0 Ferritin 12 L Total Bilirubin 0.2 AST 14 ALT 12 Alkaline Phosphatase 59 Lactate Dehydrogenase 172 Troponin I High Sens C-Reactive Protein 0.30 B-Natriuretic Peptide Total Protein 6.5 Albumin 4.2 Procalcitonin 0.03 Urine Color Urine Appearance Urine pH Ur Specific [place] Urine Protein Urine Glucose (UA) Urine Ketones Urine Blood Urine Nitrite Ur Leukocyte Esterase Urine RBC Urine WBC Ur Squamous Epith Cells Urine Bacteria Coronavirus (PCR) NEGATIVE Influenza Type A (PCR) NEGATIVE Influenza Type B (PCR) NEGATIVE RSV RNA Qual (PCR) NEGATIVE 06/09/20 20:51 MCV MCH MCHC RDW Plt Count MPV Immature Gran % (Auto) Neut % (Auto) Lymph % (Auto) [place] % (Auto) Eos % (Auto) Baso % (Auto) Lymph # (Auto) [place] # (Auto) Eos # (Auto) Baso # (Auto) Abs Immat Gran (auto) Absolute Neuts (auto) Absolute Nucleated RBC Nucleated RBC % (auto) PT INR APTT D-Dimer O2 Saturation 94.0 ABG pH at Pt Temp 7.35 ABG pH (Temp Correct) 7.35 ABG pCO2 at Pt Temp 98 H* ABG pCO2 (Temp Corrct 99 H* ABG pO2 at Pt Temp 74 L ABG pO2 (Temp Correct 75 L ABG HCO3 55 H ABG Base Excess (Actual) 23.6 Anion Gap Estim Creat Clear Calc Estimated GFR Random Glucose Lactic Acid Calcium Ferritin Total Bilirubin AST ALT Alkaline Phosphatase Lactate Dehydrogenase Troponin I High Sens C-Reactive Protein B-Natriuretic Peptide Total Protein Albumin Procalcitonin Urine Color Urine Appearance Urine pH Ur Specific [place] Urine Protein Urine Glucose (UA) Urine Ketones Urine Blood Urine Nitrite Ur Leukocyte Esterase Urine RBC Urine WBC Ur Squamous Epith Cells Urine Bacteria Coronavirus (PCR) Influenza Type A (PCR) Influenza Type B (PCR) RSV RNA Qual (PCR) Imaging Radiologist's Impressions: Impressions Chest X-Ray 06/09/20 17:39 IMPRESSION: Patchy bilateral airspace disease new from the prior study. Early or atypical infectious etiology would be suspected. Clinical correlation would be recommended. Chest CT 06/09/20 19:30 IMPRESSION: 1. Moderate emphysema. 2. Mild dependent opacities bilaterally are nonspecific. Atelectasis is suspected, however, developing infiltrate is not excluded. Clinical correlation recommended. Follow-up imaging can be obtained as clinically indicated. 3. 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 4. Cholelithiasis. Assessment and Plan (1) COPD exacerbation: Status: Inactive 60-year-old male with a past medical history of hypertension, hyperlipidemia, opiate dependence on Suboxone, anxiety, COPD on home oxygen, recently discharged from the [facility] for pneumonia presented to the hospital with a chief complaint of acute onset of shortness of breath. Noted to be in COPD exacerbation. Admitted for further management. Acute COPD exacerbation: Continue Solu-Medrol 60 mg IV t.i.d.. DuoNeb standing and p.r.n.. Supplemental oxygen with goal oxygen saturation of 93% Will consult pulmonology given recurrent episodes. Chest discomfort: Atypical nature. EKG nonischemic. Currently resolved. Cycle cardiac enzymes. Hcap: Chest x-ray showed no infiltrates. COVID-19 pending. Will start patient on vanc and Zosyn. Id consult for further recommendations. Opiate dependence: Will defer to the a.m. team to continue Suboxone once confirmed. History of anxiety: Continue home Klonopin. DVT prophylaxis: Subcu heparin Code status: Full code
--- NOTE | 2020-06-09 22:51 | MHC.CM.PN ---
Addendum entered by Mariajose Stoddard 06/09/20 22:56: IMM reviewed and signed per protocol 06/09/20 at 2240. Copy left at bedside. Pt informed that CM will follow up with him tomorrow. Original Note: CM met with pt. Pt on CPAP presently and unable to speak much. CM interview shortened as to not stress pt. According to medical record, pt sober x 1 year -alcohol use disorder and currently on suboxone for opiate use disorder. Pt not interested in HCP at this time. CM can assess when pt breathing easier. Lives with nephew. Uses a cane and home oxygen dependent on 3L. Has [employer] services through [facility]. D/C plan is home with resumption of home oxygen and [employer] services. Transportation to be arrranged by pt. CM to follow for d/c needs.
[2020-06-09 23:50] LABS: D Dimer 660 NG/ML
[2020-06-10] VITALS (15 sets, daily range): BP systolic 103–196; BP diastolic 62–103; PULSE 64–86; RESP 15–27; TEMP 37.1; O2SAT 14–97
[2020-06-10 00:07] LABS: Troponin-I High Sensitivity 24.7 ng/L (<3.5-35.0)
[2020-06-10 01:10] LABS: ABG Refer to POC result
[2020-06-10 01:14] LABS: ABG Base Excess 26.1 mmol/L; ABG HCO3 56 mmol/L (22-26); ABG pCO2 92 mmHg (32-45); ABG pCO2 TC 93 mmHg (32-45); ABG pH 7.39 (7.35-7.45); ABG pH TC 7.39 (7.35-7.45); ABG pO2 81 mmHg (83-108); ABG pO2 TC 82 (83-108)
[2020-06-10] MEDS: methylPREDNISolone Sod Succ 125 MG/2 ML VIAL 60 MG IVPUSH (05:48)
[2020-06-10 07:05] LABS: Basophils Percent Auto 0.1 % (0-2); Hematocrit 37.9 % (42-52); Hemoglobin 11.2 g/dl (14.0-18.0); Imm Gran Abs Auto 0.03 X10*3/uL (0.00-0.03); Imm Gran Pct Auto 0.3 % (0.0-0.4); Lymphocytes Absolute Auto 0.5 X10*3/uL (1.2-4.9); Lymphocytes Percent Auto 4.4 % (20-40); MANUAL DIFF FLAG SCAN; Mean Corpuscular HGB Conc 29.6 g/dl (31.0-36.0); Mean Corpuscular Hemoglobin 30.1 pg (27.0-33.0); Mean Corpuscular Volume 101.9 fL (80-98); Mean Platelet Volume 9.5 fL (9.4-12.4); Monocytes Absolute Auto 0.1 X10*3/uL (0.1-1.2); Monocytes Percent Auto 1.2 % (2-11); Neutrophils Absolute Auto 10.4 X10*3/uL (2.0-8.3); Platelet Count 310 X10*3/uL (160-400); Red Blood Count 3.72 X10*6/uL (4.60-5.80); Red Cell Distribution Width 14.2 % (11.0-16.0); SCAN SMEAR FLAG 1; White Blood Count 11.1 X10*3/uL (4.8-10.8)
[2020-06-10 07:41] LABS: Anion Gap 11 (12-20); Blood Urea Nitrogen 18 mg/dL (9-16); Calcium 8.9 mg/dL (8.4-10.2); Carbon Dioxide 43 mmol/L (22-29); Chloride 91 mmol/L (96-108); Creatinine Clr Calc Pharmacy 78.7; Estimated Glomerular Filt Rate > 60; Glucose Random 136 mg/dL (60-115); Potassium 4.2 mmol/L (3.3-5.1); Sodium 141 mmol/L (135-145)
[2020-06-10] MEDS: Piperacillin Sodium/Tazobactam 3.375 GM in 0.9 % Sodium Chloride 50 ML IV ×2 (07:46→14:03)
[2020-06-10] MEDS: Albuterol/Iprat 2.5/0.5MG 3 ML AMPUL.NEB INHALE ×3 (07:48→21:26)
[2020-06-10 07:55] LABS: SLIDE REVIEW VERIFIED
--- NOTE | 2020-06-10 08:42 | PC.NURSE ---
call placed to resp for cpap per pt request
[2020-06-10] MEDS: vancomycin HCL 750 MG in 0.9 % Sodium Chloride 250 ML 265 MG IV (09:25)
[2020-06-10] MEDS: methylPREDNISolone Sod Succ 125 MG/2 ML VIAL 40 MG IVPUSH ×2 (09:25→21:15)
[2020-06-10] MEDS: NIFEdipine ER 90 MG TAB.ER.24 PO (09:25)
[2020-06-10] MEDS: Buprenorphine/Naloxone 8/2 mg FILM 2 FILM SUBLINGUAL (09:26)
[2020-06-10] MEDS: Folic Acid 1 MG TABLET PO (09:26)
[2020-06-10] MEDS: Famotidine 20 MG TABLET PO (09:26)
[2020-06-10] MEDS: Aspirin Enteric Coated 81 MG TABLET.DR PO (09:26)
[2020-06-10] MEDS: carvediloL 25 MG TABLET PO ×2 (09:26→21:12)
[2020-06-10] MEDS: Isosorbide Mononitrate 60 MG TAB.ER.24H PO (09:26)
[2020-06-10] MEDS: Gabapentin 600 MG TABLET PO ×2 (09:26→21:13)
[2020-06-10] MEDS: Losartan Potassium 50 MG TABLET PO (09:26)
[2020-06-10] MEDS: acetaZOLAMIDE 250 MG TABLET PO ×2 (09:27→21:13)
[2020-06-10] MEDS: Clopidogrel Bisulfate 75 MG TABLET PO (09:27)
[2020-06-10] MEDS: hydrALAZINE HCl 50 MG TABLET 100 MG PO ×2 (09:27→21:12)
--- NOTE | 2020-06-10 10:06 | P.CDIC_ITS ---
CDI Concurrent Query Service Date: 06/10/20 Documentation Clarification: Please clarify if you are treating a proba ble/suspected/likely or confirmed: Chronic respiratory failure poa Acute on chronic respiratory failure Please specify if known Provider Response: Other Other Diagnosis: chronic hypercarbic respiratory failure PLEASE DO NOT DELETE/MODIFY EXISTING CONTENT Additional information is needed in order to code to the highest accuracy and appropriate Severity of Illness (SOI). Please clarify the information noted below in your progress notes and discharge summary. Risk Factors/Clinical Indicators/Treatments COPD on 3 liters home oxygen SOB, moderate respiratory distress RR 26 pulse ox 90 L CXR showed new infiltrate, 3 liters oxygen History of PNA ABG'S drawn CDS: [facility], [facility] Contact Number: [phone] Please Review the information above and exercise your independent professional judgment in responding to the query. If you concur, pleas document in the PROGRESS NOTES and DISCHARGE SUMMARY. If you do not agree with the query, please document in the query above. THIS QUERY IS PART OF THE PERMANENT MEDICAL RECORD
--- NOTE | 2020-06-10 11:07 | PC.NURSE ---
pt states he wants to be transfered to [facility], pt educated and rt at bedside per pt request for cpap machine
--- NOTE | 2020-06-10 13:52 | P.CONPL_ITS ---
History of Present Illness History of Present Illness Consult date: 06/10/20 Chief complaint: COPD EXACERBATION Narrative: 60-year-old male with a past medical history of hypertension, hyper lipidemia, opiate dependence on Suboxone, COPD on 3 L of home oxygen, along with chronic hypercarbic respiratory failure on IVAP followed closely by [facility] pulmonology. Apparently the patient presented to the hospital with a chief complaint of shortness of breath after being vaccinated for COVID- 19.. Patient mentioned that when he was getting into the car he suddenly felt short of breath and subsequently had a panic episode, called EMS and presented to the ER for further evaluation. Patient denies any fever chills cough. Patient mentioned that he was recently discharged from the [facility] about a week ago and finished a course of antibiotics for pneumonia. In the ER team patient was noted to be tachypnea and mildly in respiratory distress, saturating 88% on 3 L of oxygen. Given Solu-Medrol nebulizations and antibiotics a chest x-ray showed new infiltrates. Mention the patient respiratory status improved. ABG demonstrated significant hypercarbia but is stable pH suggesting chronic hypercarbic respiratory failure. The patient was given Diamox. On further questioning he is not using his positive airway pressure therapy at home. We talked about the importance due to the fact that his CO2 is so high that he could potentially going to a coma. The patient understands the severity in this seriousness of the matter. He is going to start wearing as soon as he gets home. Current the patient feels better. Review of Systems Constitutional: Constitutional: Denies night sweats ENT: Denies change in voice, Denies lip swelling, Denies mouth pain, Reports nasal congestion, Reports nasal discharge and Denies tongue swelling Cardiovascular: Cardiovascular: Denies chest pain and Reports dyspnea Respiratory: Respiratory: Reports cough, Reports dyspnea and Reports wheezing Gastrointestinal: Gastrointestinal: Denies abdominal pain Musculoskeletal: Musculoskeletal: Denies no additional musculoskeletal complaints Neurologic: Denies Neuro-related abnormal movements Psychiatric: Psychiatric: Denies no additional psychiatric complaints Hematologic/Lymphatic: Hematologic/Lymphatic: Denies easy bleeding and Denies lymphadenopathy Allergic/Immunologic: Allergic/Immunologic: Denies lip swelling, Denies tongue swelling and Reports wheezing PMFSH Past Medical History Medical History (Updated 06/10/20 @ 13:57 by Roger Saunders MD) Alcohol abuse Chronic hypercapnic respiratory failure Congestive heart failure COPD (chronic obstructive pulmonary disease) Impetigo Social History Social History Alcohol intake: never Smoking Status: Current every day smoker Use of substances other than those prescribed or required for medical reasons: Yes Substance Use Type: Marijuana Substance Use Frequency: Occasionally Advance Directives: No service: No Current occupational status: disabled Meds Allergies Allergy/AdvReac Type Severity Reaction Status Date / Time KERI Inhibitors Allergy Wheezing Verified 06/09/20 17:52 HAIR DYE Allergy Unknown HIVES Uncoded 11/14/19 15:39 Active Medications: Current Medications Generic Name Dose Route Start Last Admin Trade Name Freq PRN Reason Stop Dose Admin Acetaminophen 650 mg 06/09/20 20:55 Acetaminophen 325 Mg Tablet PO Q6H PRN Pain, Mild (Pain Scale 1-3) Acetazolamide 250 mg 06/10/20 09:00 06/10/20 09:27 Acetazolamide 250 Mg Tablet PO 250 mg BID ALEXUS Administration Albuterol Sulfate 2.5 mg 06/10/20 02:25 Albuterol Sulfate (0.083%) 2.5 Mg/3 Ml Vial.Neb INHALE Q6H PRN Wheezing Albuterol/Ipratropium 3 ml 06/09/20 20:57 Albuterol/Iprat 2.5/0.5mg 3 Ml Ampul.Neb INHALE Q4H PRN Shortness of Breath/Wheezing Albuterol/Ipratropium 3 ml 06/10/20 08:00 06/10/20 07:48 Albuterol/Iprat 2.5/0.5mg 3 Ml Ampul.Neb INHALE 3 ml RQ6H WHILE AWAKE ALEXUS Administration Albuterol/Ipratropium 3 ml 06/10/20 03:30 06/10/20 05:16 Albuterol/Iprat 2.5/0.5mg 3 Ml Ampul.Neb INHALE Not Given Q6H ALEXUS Aspirin 81 mg 06/10/20 09:00 06/10/20 09:26 Aspirin Enteric Coated 81 Mg Tablet. PO 81 mg DAILY ALEXUS Administration Atorvastatin Calcium 80 mg 06/10/20 21:00 Atorvastatin Calcium 80 Mg Tablet PO BEDTIME ALEXUS Buprenorphine/Naloxone 2 film 06/10/20 09:00 06/10/20 09:26 Buprenorphine/Naloxone 8/2 Mg Film SUBLINGUAL 2 film DAILY ALEXUS Administration Carvedilol 25 mg 06/10/20 09:00 06/10/20 09:26 Carvedilol 25 Mg Tablet PO 25 mg BID ALEXUS Administration Protocol Clonazepam 0.5 mg 06/10/20 02:25 Clonazepam 0.5 Mg Tablet PO DAILY PRN Anxiety Clopidogrel Bisulfate 75 mg 06/10/20 09:00 06/10/20 09:27 Clopidogrel Bisulfate 75 Mg Tablet PO 75 mg DAILY ALEXUS Administration Docusate Sodium 100 mg 06/09/20 20:55 Docusate Sodium 100 Mg Capsule PO DAILY PRN Constipation Famotidine 20 mg 06/10/20 09:00 06/10/20 09:26 Famotidine 20 Mg Tablet PO 20 mg DAILY ALEXUS Administration Folic Acid 1 mg 06/10/20 09:00 06/10/20 09:26 Folic Acid 1 Mg Tablet PO 1 mg DAILY ALEXUS Administration Gabapentin 600 mg 06/10/20 09:00 06/10/20 09:26 Gabapentin 600 Mg Tablet PO 600 mg BID ALEXUS Administration Hydralazine HCl 100 mg 06/10/20 09:00 06/10/20 09:27 Hydralazine Hcl 50 Mg Tablet PO 100 mg TID ALEXUS Administration Protocol Piperacillin Sod/Tazobactam 50 mls @ 100 mls/hr 06/10/20 01:00 06/10/20 08:27 Sod 3.375 gm/ Sodium Chloride IV Infused Q6H [facility] Infusion Vancomycin HCl 750 mg/ Sodium 265 mls @ 265 mls/hr 06/10/20 08:00 06/10/20 10:38 Chloride IV Infused Q12H [facility] Infusion Isosorbide Mononitrate 60 mg 06/10/20 09:00 06/10/20 09:26 Isosorbide Mononitrate 60 Mg Tab.Er.24h PO 60 mg DAILY ALEXUS Administration Protocol Losartan Potassium 50 mg 06/10/20 09:00 06/10/20 09:26 Losartan Potassium 50 Mg Tablet PO 50 mg DAILY ALEXUS Administration Protocol Methylprednisolone Sodium Succinate 40 mg 06/10/20 08:30 06/10/20 09:25 Methylprednisolone Sod Succ 125 Mg/2 Ml Vial IVPUSH 40 mg Q12H ALEXUS Administration Mirtazapine 7.5 mg 06/10/20 21:00 Mirtazapine 7.5 Mg Tablet PO BEDTIME ALEXUS Nicotine 14 mg 06/10/20 13:45 Nicotine 14 Mg Patch.Td24 TRANSDERMA DAILY ALEXUS Nifedipine 90 mg 06/10/20 09:00 06/10/20 09:25 Nifedipine Er 90 Mg Tab.Er.24 PO 90 mg DAILY [facility] Administration Protocol Omeprazole 20 mg 06/11/20 09:00 Omeprazole 20 Mg Capsule.Dr PO DAILY [facility] Pharmacy Consult 1 each 06/09/20 20:57 Consult Rx Vancomycin Dosing MISCELLANE DAILY PRN Consult order Sodium Chloride 3 ml 06/10/20 00:00 06/10/20 09:24 0.9 % Sodium Chloride Flush 3 Ml Syringe IVFLUSH Not Given QSHIFT [facility] Trazodone HCl 50 mg 06/10/20 21:00 Trazodone Hcl 50 Mg Tablet PO BEDTIME [facility] Zolpidem Tartrate 5 mg 06/10/20 02:25 Zolpidem Tartrate 5 Mg Tablet PO BEDTIME PRN Insomnia Home Medications Medication Instructions Recorded Confirmed Last Taken Type albuterol sulfate 1 amp INHALATION Q6H PRN 06/09/20 06/09/20 Unknown History aspirin 1 tab PO DAILY 06/09/20 06/09/20 Unknown History atorvastatin 1 tab PO BEDTIME 06/09/20 06/09/20 Unknown History buprenorphine-naloxone 2 strip SUBLINGUAL DAILY 06/09/20 06/09/20 Unknown History carvedilol 1 tab PO BID 06/09/20 06/09/20 Unknown History clonazepam 1 tab PO DAILY PRN 06/09/20 06/09/20 Unknown History clopidogrel 1 tab PO DAILY 06/09/20 06/09/20 Unknown History folic acid 1 tab PO DAILY 06/09/20 06/09/20 Unknown History gabapentin 1 tab PO BID 06/09/20 06/09/20 Unknown History hydralazine 2 tab PO TID 06/09/20 06/09/20 Unknown History ipratropium-albuterol [Combivent 1 puff INHALATION QID 06/09/20 06/09/20 Unknown History Respimat] isosorbide mononitrate 1 tab PO QAM 06/09/20 06/09/20 Unknown History losartan 1 tab PO DAILY 06/09/20 06/09/20 Unknown History mirtazapine 1 tab PO BEDTIME 06/09/20 06/09/20 Unknown History nifedipine 1 tab PO DAILY 06/09/20 06/09/20 Unknown History pantoprazole 1 tab PO BID 06/09/20 06/09/20 Unknown History trazodone 1 tab PO BEDTIME 06/09/20 06/09/20 Unknown History zolpidem 1 tab PO BEDTIME PRN 06/09/20 06/09/20 Unknown History Physical Exam Vital Signs: Vital Signs: Last Vital Signs Temp 98.9 F 06/09/20 20:55 Pulse 64 06/10/20 09:27 Resp 20 06/10/20 07:45 BP 196/76 H 06/10/20 09:27 Pulse Ox 92 06/10/20 07:45 Body Mass Index 22.3 Const: General: alert Neck: Neck: Yes normal visual inspection, Yes full ROM and Yes no lymphadenopathy Chest: Chest palpation & inspection: normal inspection of the chest Resp: Auscultation: diminished lung sounds Cardio: Rate: regular rate Rhythm: regular rhythm Heart sounds: S1 normal heart sound present and S2 normal heart sound present GI: Palpation (GI): Soft to palpation and nontender Auscultation: normal bowel sounds Skin: General skin exam: rashes and/or lesions noted Results Laboratory Findings CBC and BMP: 06/10/20 06:42 06/10/20 06:42 ABG, PT/INR, D-dimer: PT/INR, D-dimer PT 11.1 SEC (10.8-13.0) 06/09/20 19:30 INR 0.9 (0.9-1.1) 06/09/20 19:30 D-Dimer 660 NG/ML 06/09/20 23:29 Abnormal lab findings: Abnormal Labs 06/09/20 06/09/20 06/09/20 19:30 19:30 19:44 WBC 14.5 H RBC 3.71 L Hgb 11.4 L Hct 37.4 L MCV 100.8 H MCHC 30.5 L Neut % (Auto) 80.2 H Lymph % (Auto) 9.8 L [place] % (Auto) Lymph # (Auto) [place] # (Auto) 1.3 H Abs Immat Gran (auto) 0.06 H Absolute Neuts (auto) 11.6 H ABG pCO2 at Pt Temp ABG pCO2 (Temp Corrct ABG pO2 at Pt Temp ABG pO2 (Temp Correct ABG HCO3 Chloride 87 L Carbon Dioxide 42 H* Anion Gap BUN 19 H Random Glucose Ferritin 12 L B-Natriuretic Peptide 143 H 06/09/20 06/10/20 06/10/20 20:51 01:03 06:42 WBC 11.1 H RBC 3.72 L Hgb 11.2 L Hct 37.9 L MCV 101.9 H MCHC 29.6 L Neut % (Auto) 94.0 H Lymph % (Auto) 4.4 L [place] % (Auto) 1.2 L Lymph # (Auto) 0.5 L [place] # (Auto) Abs Immat Gran (auto) Absolute Neuts (auto) 10.4 H ABG pCO2 at Pt Temp 98 H* 92 H* ABG pCO2 (Temp Corrct 99 H* 93 H* ABG pO2 at Pt Temp 74 L 81 L ABG pO2 (Temp Correct 75 L 82 L ABG HCO3 55 H 56 H Chloride Carbon Dioxide Anion Gap BUN Random Glucose Ferritin B-Natriuretic Peptide 06/10/20 06:42 WBC RBC Hgb Hct MCV MCHC Neut % (Auto) Lymph % (Auto) [place] % (Auto) Lymph # (Auto) [place] # (Auto) Abs Immat Gran (auto) Absolute Neuts (auto) ABG pCO2 at Pt Temp ABG pCO2 (Temp Corrct ABG pO2 at Pt Temp ABG pO2 (Temp Correct ABG HCO3 Chloride 91 L Carbon Dioxide 43 H* Anion Gap 11 L BUN 18 H Random Glucose 136 H Ferritin B-Natriuretic Peptide Assessment and Plan (1) COPD exacerbation: Status: Acute (2) Vaccine reaction: Qualifiers: Encounter type: initial encounter Qualified Code(s): T50.Z95A - Adverse effect of other vaccines and biological substances, initial encounter Status: Acute (3) Chronic hypercapnic respiratory failure: Status: Acute Continue respiratory therapy Prednisone taper The patient needs to start using his IVAP. If he does stay in the hospital he should be placed on BiPAP at nighttime while sleeping Diamox to be provided as he is in the hospital using the BiPAP to reassure that he will have enough respiratory compensation to blow up the CO2 and therefore not resulting worsening acidosis Consider deescalating antibiotics to p.o. such as Augmentin Follow-up with outpatient Pulmonary in 1-2 weeks at [facility]
[2020-06-10] MEDS: Nicotine 14 MG PATCH.TD24 TRANSDERMA (14:04)
[2020-06-10] MEDS: Acetaminophen 325 MG TABLET 650 MG PO (14:20)
[2020-06-10] MEDS: clonazePAM 0.5 MG TABLET PO (14:20)
--- NOTE | 2020-06-10 16:34 | HO.PM.IMPN ---
Subjective Subjective Date of Service: 06/10/20 Interval History: dyspnea slightly improved not coughing no fever admits nonadherence with iVAPS ventilator smokes 1/2 ppd Physical Exam Vital Signs: Vital Signs: Last Vital Signs Temp 98.9 F 06/09/20 20:55 Pulse 72 06/10/20 15:24 Resp 20 06/10/20 07:45 BP 196/76 H 06/10/20 09:27 Pulse Ox 92 06/10/20 07:45 Body Mass Index 22.3 Gen: in no acute distress HEENT: sclera anicteric, moist mucus membranes Neck: supple Lungs: Diminished bilaterally Heart: regular rate and rhythm, no murmurs Abd: soft, non-tender, non-distended Ext: no edema Skin: warm/well-perfused Neuro: alert and oriented x3, no focal findings Psych: appropriate affect Objective Data Current Medications Generic Name Dose Route Start Last Admin Trade Name Freq PRN Reason Stop Dose Admin Acetaminophen 650 mg 06/09/20 20:55 06/10/20 14:20 Acetaminophen 325 Mg Tablet PO 650 mg Q6H PRN Administration Pain, Mild (Pain Scale 1-3) Acetazolamide 250 mg 06/10/20 09:00 06/10/20 09:27 Acetazolamide 250 Mg Tablet PO 250 mg BID ALEXUS Administration Albuterol Sulfate 2.5 mg 06/10/20 02:25 Albuterol Sulfate (0.083%) 2.5 Mg/3 Ml Vial.Neb INHALE Q6H PRN Wheezing Albuterol/Ipratropium 3 ml 06/09/20 20:57 Albuterol/Iprat 2.5/0.5mg 3 Ml Ampul.Neb INHALE Q4H PRN Shortness of Breath/Wheezing Albuterol/Ipratropium 3 ml 06/10/20 08:00 06/10/20 15:20 Albuterol/Iprat 2.5/0.5mg 3 Ml Ampul.Neb INHALE 3 ml RQ6H WHILE AWAKE ALEXUS Administration Albuterol/Ipratropium 3 ml 06/10/20 03:30 06/10/20 05:16 Albuterol/Iprat 2.5/0.5mg 3 Ml Ampul.Neb INHALE Not Given Q6H ALEXUS Aspirin 81 mg 06/10/20 09:00 06/10/20 09:26 Aspirin Enteric Coated 81 Mg Tablet. PO 81 mg DAILY A[facility]US Administration Atorvastatin Calcium 80 mg 06/10/20 21:00 Atorvastatin Calcium 80 Mg Tablet PO BEDTIME [facility] Buprenorphine/Naloxone 2 film 06/10/20 09:00 06/10/20 09:26 Buprenorphine/Naloxone 8/2 Mg Film SUBLINGUAL 2 film DAILY [facility]US Administration Carvedilol 25 mg 06/10/20 09:00 06/10/20 09:26 Carvedilol 25 Mg Tablet PO 25 mg BID ALEXUS Administration Protocol Clonazepam 0.5 mg 06/10/20 02:25 06/10/20 14:20 Clonazepam 0.5 Mg Tablet PO 0.5 mg DAILY PRN Administration Anxiety Clopidogrel Bisulfate 75 mg 06/10/20 09:00 06/10/20 09:27 Clopidogrel Bisulfate 75 Mg Tablet PO 75 mg DAILY [facility] Administration Docusate Sodium 100 mg 06/09/20 20:55 Docusate Sodium 100 Mg Capsule PO DAILY PRN Constipation Famotidine 20 mg 06/10/20 09:00 06/10/20 09:26 Famotidine 20 Mg Tablet PO 20 mg DAILY [facility] Administration Folic Acid 1 mg 06/10/20 09:00 06/10/20 09:26 Folic Acid 1 Mg Tablet PO 1 mg DAILY [facility] Administration Gabapentin 600 mg 06/10/20 09:00 06/10/20 09:26 Gabapentin 600 Mg Tablet PO 600 mg BID ALEXUS Administration Hydralazine HCl 100 mg 06/10/20 09:00 06/10/20 09:27 Hydralazine Hcl 50 Mg Tablet PO 100 mg TID ALEXUS Administration Protocol Piperacillin Sod/Tazobactam 50 mls @ 100 mls/hr 06/10/20 01:00 06/10/20 14:35 Sod 3.375 gm/ Sodium Chloride IV Infused Q6H [facility] Infusion Vancomycin HCl 750 mg/ Sodium 265 mls @ 265 mls/hr 06/10/20 08:00 06/10/20 10:38 Chloride IV Infused Q12H [facility] Infusion Isosorbide Mononitrate 60 mg 06/10/20 09:00 06/10/20 09:26 Isosorbide Mononitrate 60 Mg Tab.Er.24h PO 60 mg DAILY [facility]US Administration Protocol Losartan Potassium 50 mg 06/10/20 09:00 06/10/20 09:26 Losartan Potassium 50 Mg Tablet PO 50 mg DAILY ALEXUS Administration Protocol Methylprednisolone Sodium Succinate 40 mg 06/10/20 08:30 06/10/20 09:25 Methylprednisolone Sod Succ 125 Mg/2 Ml Vial IVPUSH 40 mg Q12H [facility] Administration Mirtazapine 7.5 mg 06/10/20 21:00 Mirtazapine 7.5 Mg Tablet PO BEDTIME [facility]US Nicotine 14 mg 06/10/20 13:45 06/10/20 14:04 Nicotine 14 Mg Patch.Td24 TRANSDERMA 14 mg DAILY [facility]US Administration Nifedipine 90 mg 06/10/20 09:00 06/10/20 09:25 Nifedipine Er 90 Mg Tab.Er.24 PO 90 mg DAILY [facility] Administration Protocol Omeprazole 20 mg 06/11/20 06:30 Omeprazole 20 Mg Capsule. PO DAILY@0630 [facility] Pharmacy Consult 1 each 06/09/20 20:57 Consult Rx Vancomycin Dosing MISCELLANE DAILY PRN Consult order Sodium Chloride 3 ml 06/10/20 00:00 06/10/20 09:24 0.9 % Sodium Chloride Flush 3 Ml Syringe IVFLUSH Not Given QSHIFT [facility] Trazodone HCl 50 mg 06/10/20 21:00 Trazodone Hcl 50 Mg Tablet PO BEDTIME [facility] Zolpidem Tartrate 5 mg 06/10/20 02:25 Zolpidem Tartrate 5 Mg Tablet PO BEDTIME PRN Insomnia Labs CBC & Chem 7: 06/10/20 06:42 06/10/20 06:42 Labs: Laboratory Results - last 24 hr 06/09/20 06/09/20 06/09/20 19:30 19:30 19:30 WBC 14.5 H RBC 3.71 L Hgb 11.4 L Hct 37.4 L MCV 100.8 H MCH 30.7 MCHC 30.5 L RDW 14.4 Plt Count 330 MPV 9.9 Immature Gran % (Auto) 0.4 Neut % (Auto) 80.2 H Lymph % (Auto) 9.8 L [place] % (Auto) 9.3 Eos % (Auto) 0.1 Baso % (Auto) 0.2 Lymph # (Auto) 1.4 [place] # (Auto) 1.3 H Eos # (Auto) 0.0 Baso # (Auto) 0.0 Abs Immat Gran (auto) 0.06 H Absolute Neuts (auto) 11.6 H Absolute Nucleated RBC 0.000 Nucleated RBC % (auto) 0.0 Smear Tech's Comments PT 11.1 INR 0.9 APTT 31.2 D-Dimer 720 O2 Saturation ABG pH at Pt Temp ABG pH (Temp Correct) ABG pCO2 at Pt Temp ABG pCO2 (Temp Corrct ABG pO2 at Pt Temp ABG pO2 (Temp Correct ABG HCO3 ABG Base Excess (Actual) Sodium Cancelled Potassium Cancelled Chloride Cancelled Carbon Dioxide Cancelled Anion Gap Cancelled BUN Cancelled Creatinine Cancelled Estim Creat Clear Calc Cancelled Estimated GFR Cancelled Random Glucose Cancelled Lactic Acid Calcium Cancelled Ferritin Total Bilirubin Cancelled AST Cancelled ALT Cancelled Alkaline Phosphatase Cancelled Lactate Dehydrogenase Troponin I High Sens C-Reactive Protein B-Natriuretic Peptide Total Protein Cancelled Albumin Cancelled Procalcitonin Urine Color Urine Appearance Urine pH Ur Specific [place] Urine Protein Urine Glucose (UA) Urine Ketones Urine Blood Urine Nitrite Ur Leukocyte Esterase Urine RBC Urine WBC Ur Squamous Epith Cells Urine Bacteria Coronavirus (PCR) Influenza Type A (PCR) Influenza Type B (PCR) RSV RNA Qual (PCR) 06/09/20 06/09/20 06/09/20 19:30 19:30 19:31 WBC RBC Hgb Hct MCV MCH MCHC RDW Plt Count MPV Immature Gran % (Auto) Neut % (Auto) Lymph % (Auto) [place] % (Auto) Eos % (Auto) Baso % (Auto) Lymph # (Auto) [place] # (Auto) Eos # (Auto) Baso # (Auto) Abs Immat Gran (auto) Absolute Neuts (auto) Absolute Nucleated RBC Nucleated RBC % (auto) Smear Tech's Comments PT INR APTT D-Dimer O2 Saturation ABG pH at Pt Temp ABG pH (Temp Correct) ABG pCO2 at Pt Temp ABG pCO2 (Temp Corrct ABG pO2 at Pt Temp ABG pO2 (Temp Correct ABG HCO3 ABG Base Excess (Actual) Sodium Potassium Chloride Carbon Dioxide Anion Gap BUN Creatinine Estim Creat Clear Calc Estimated GFR Random Glucose Lactic Acid 0.5 Calcium Ferritin Total Bilirubin AST ALT Alkaline Phosphatase Lactate Dehydrogenase Troponin I High Sens 20.9 C-Reactive Protein B-Natriuretic Peptide 143 H Total Protein Albumin Procalcitonin Urine Color YELLOW Urine Appearance CLEAR Urine pH 7.0 Ur Specific [place] 1.015 Urine Protein NEG Urine Glucose (UA) NEG Urine Ketones NEG Urine Blood NEG Urine Nitrite NEG Ur Leukocyte Esterase NEG Urine RBC 0 Urine WBC 0 Ur Squamous Epith Cells NONE Urine Bacteria NONE Coronavirus (PCR) Influenza Type A (PCR) Influenza Type B (PCR) RSV RNA Qual (PCR) 06/09/20 06/09/20 06/09/20 19:43 19:44 19:44 WBC RBC Hgb Hct MCV MCH MCHC RDW Plt Count MPV Immature Gran % (Auto) Neut % (Auto) Lymph % (Auto) [place] % (Auto) Eos % (Auto) Baso % (Auto) Lymph # (Auto) [place] # (Auto) Eos # (Auto) Baso # (Auto) Abs Immat Gran (auto) Absolute Neuts (auto) Absolute Nucleated RBC Nucleated RBC % (auto) Smear Tech's Comments PT INR APTT D-Dimer O2 Saturation ABG pH at Pt Temp ABG pH (Temp Correct) ABG pCO2 at Pt Temp ABG pCO2 (Temp Corrct ABG pO2 at Pt Temp ABG pO2 (Temp Correct ABG HCO3 ABG Base Excess (Actual) Sodium 142 Potassium 3.7 Chloride 87 L Carbon Dioxide 42 H* Anion Gap 17 BUN 19 H Creatinine 1.27 Estim Creat Clear Calc 65.0 Estimated GFR 58 Random Glucose 114 Lactic Acid Calcium 9.0 Ferritin 12 L Total Bilirubin 0.2 AST 14 ALT 12 Alkaline Phosphatase 59 Lactate Dehydrogenase 172 Troponin I High Sens C-Reactive Protein 0.30 B-Natriuretic Peptide Total Protein 6.5 Albumin 4.2 Procalcitonin 0.03 Urine Color Urine Appearance Urine pH Ur Specific [place] Urine Protein Urine Glucose (UA) Urine Ketones Urine Blood Urine Nitrite Ur Leukocyte Esterase Urine RBC Urine WBC Ur Squamous Epith Cells Urine Bacteria Coronavirus (PCR) NEGATIVE Influenza Type A (PCR) NEGATIVE Influenza Type B (PCR) NEGATIVE RSV RNA Qual (PCR) NEGATIVE 06/09/20 06/09/20 06/09/20 20:51 23:29 23:29 WBC RBC Hgb Hct MCV MCH MCHC RDW Plt Count MPV Immature Gran % (Auto) Neut % (Auto) Lymph % (Auto) [place] % (Auto) Eos % (Auto) Baso % (Auto) Lymph # (Auto) [place] # (Auto) Eos # (Auto) Baso # (Auto) Abs Immat Gran (auto) Absolute Neuts (auto) Absolute Nucleated RBC Nucleated RBC % (auto) Smear Tech's Comments PT INR APTT D-Dimer 660 O2 Saturation 94.0 ABG pH at Pt Temp 7.35 ABG pH (Temp Correct) 7.35 ABG pCO2 at Pt Temp 98 H* ABG pCO2 (Temp Corrct 99 H* ABG pO2 at Pt Temp 74 L ABG pO2 (Temp Correct 75 L ABG HCO3 55 H ABG Base Excess (Actual) 23.6 Sodium Potassium Chloride Carbon Dioxide Anion Gap BUN Creatinine Estim Creat Clear Calc Estimated GFR Random Glucose Lactic Acid Calcium Ferritin Total Bilirubin AST ALT Alkaline Phosphatase Lactate Dehydrogenase Troponin I High Sens 24.7 C-Reactive Protein B-Natriuretic Peptide Total Protein Albumin Procalcitonin Urine Color Urine Appearance Urine pH Ur Specific [place] Urine Protein Urine Glucose (UA) Urine Ketones Urine Blood Urine Nitrite Ur Leukocyte Esterase Urine RBC Urine WBC Ur Squamous Epith Cells Urine Bacteria Coronavirus (PCR) Influenza Type A (PCR) Influenza Type B (PCR) RSV RNA Qual (PCR) 06/10/20 06/10/20 06/10/20 01:03 06:42 06:42 WBC 11.1 H RBC 3.72 L Hgb 11.2 L Hct 37.9 L MCV 101.9 H MCH 30.1 MCHC 29.6 L RDW 14.2 Plt Count 310 MPV 9.5 Immature Gran % (Auto) 0.3 Neut % (Auto) 94.0 H Lymph % (Auto) 4.4 L [place] % (Auto) 1.2 L Eos % (Auto) 0.0 Baso % (Auto) 0.1 Lymph # (Auto) 0.5 L [place] # (Auto) 0.1 Eos # (Auto) 0.0 Baso # (Auto) 0.0 Abs Immat Gran (auto) 0.03 Absolute Neuts (auto) 10.4 H Absolute Nucleated RBC 0.000 Nucleated RBC % (auto) 0.0 Smear Tech's Comments VERIFIED PT INR APTT D-Dimer O2 Saturation 96.0 ABG pH at Pt Temp 7.39 ABG pH (Temp Correct) 7.39 ABG pCO2 at Pt Temp 92 H* ABG pCO2 (Temp Corrct 93 H* ABG pO2 at Pt Temp 81 L ABG pO2 (Temp Correct 82 L ABG HCO3 56 H ABG Base Excess (Actual) 26.1 Sodium 141 Potassium 4.2 Chloride 91 L Carbon Dioxide 43 H* Anion Gap 11 L BUN 18 H Creatinine 1.05 Estim Creat Clear Calc 78.7 Estimated GFR > 60 Random Glucose 136 H Lactic Acid Calcium 8.9 Ferritin Total Bilirubin AST ALT Alkaline Phosphatase Lactate Dehydrogenase Troponin I High Sens C-Reactive Protein B-Natriuretic Peptide Total Protein Albumin Procalcitonin Urine Color Urine Appearance Urine pH Ur Specific [place] Urine Protein Urine Glucose (UA) Urine Ketones Urine Blood Urine Nitrite Ur Leukocyte Esterase Urine RBC Urine WBC Ur Squamous Epith Cells Urine Bacteria Coronavirus (PCR) Influenza Type A (PCR) Influenza Type B (PCR) RSV RNA Qual (PCR) Impressions Chest X-Ray 06/09/20 17:39 IMPRESSION: Patchy bilateral airspace disease new from the prior study. Early or atypical infectious etiology would be suspected. Clinical correlation would be recommended. Chest CT 06/09/20 19:30 IMPRESSION: 1. Moderate emphysema. 2. Mild dependent opacities bilaterally are nonspecific. Atelectasis is suspected, however, developing infiltrate is not excluded. Clinical correlation recommended. Follow-up imaging can be obtained as clinically indicated. 3. 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 4. Cholelithiasis. Assessment and Plan (1) Chronic hypercapnic respiratory failure: Status: Acute (2) COPD exacerbation: Status: Acute Assessment and Plan: hospital day 2 60-year-old M with COPD, chronic hypoxic and hypercarbic respiratory failure, opiate dependence on Suboxone, hypertension recently discharged from [facility] for pneumonia admitted for dyspnea from COPD exacerbation # COPD exacerbation - IV steroids, nebulized bronchodilators, doxycycline d#1 # chronic hypoxic/hypercarbic respiratory failure # chronic respiratory acidosis - iVAPS at night- instructed to bring in home machine - suppl O2, target SaO2 88-92% - acetazolamide - appreciate pulmonology consult # atypical chest pain - delta hs-Tn-I <50%, no EKG changes # HTN - carvedilol, hydralazine, Imdur, losartan, nifedipine # PAD - aspirin, clopidogrel, statin # opioid depedence - Suboxone # tobacco abuse - NRT # anxiety - clonazepam, mirtazapine # VTE ppx - LMWH # VTE ppx - LMWH
--- NOTE | 2020-06-10 16:41 | P.CNID_ITS ---
History of Present Illness Data of Consult Service Date: 06/10/20 Requesting physician: Katie Gutierrez Primary Care Provider: Vesta Goddard MD [facility] Reason for consult: shortness of breath He presents to hospital with shortness of breath acutely. He has no productive sputum or fever He has negative COVID test on 06/04 at [facility] He received second Moderna shot for COVID yesterday. He takes 3 liters oxygen at home chronically. He has 88% oxygen saturation on 3 liters. He was hospitalized at [facility] 05/25-05/29 for shortness of breath and chest discomfort and discharged on Zithromax, He has been on Suboxone 09/28 bid as well He returned to [facility] on 06/04 and was discharged on 06/[address] left apex bullae and left sided infiltrate small but no significant lobar infiltrate He has no tuberculosis Review of Systems Review of Systems: Yes all other systems are reviewed and are negative [facility] Past Medical History Medical History (Updated 06/21/20 @ 11:16 by Johnson Panchal MD) Alcohol abuse Chronic hypercapnic respiratory failure Chronic respiratory failure with hypoxia and hypercapnia Congestive heart failure COPD (chronic obstructive pulmonary disease) COPD exacerbation Impetigo Family History Family history: reviewed and not pertinent Social History Social History Household Members: None Housing: House Do you presently have visiting nurse or other home services: Yes Alcohol intake: former Smoking Status: Current some day smoker Tobacco Type: Cigarette Packs Per Day: 1 Cigarettes Per Day: 4 Years Smoked: 30 Smoked in Last 30 Days: Yes Patient Interested in Nicotine Replacement: Yes Patient Given Instructions on How to Stop Smoking: No Second Hand Smoke Exposure: Yes Use of substances other than those prescribed or required for medical reasons: No Substance Use Type: Marijuana Currently Displaying Signs/Symptoms of Drug Intoxication Withdrawal: No Any prior treatment program specific to substance use: Yes (on suboxone) Have you been hit, kicked, punched, or otherwise hurt by someone within the past year? If so, by whom?: No Do you feel safe in your current relationship?: Yes Is there a partner from a previous relationship who is making you feel unsafe now?: No Are you made to feel afraid or neglected: No Spiritual Healthcare Practices: none Cheondoism Healthcare Practices: none Cultural Healthcare Practices: none Advance Directives: No Advance Directives Information Provided: No Do you have thoughts of harming others: None Do you have a plan to hurt others: No Plan Recently lost weight without trying: No service: No Current occupational status: disabled Meds Allergies Allergy/AdvReac Type Severity Reaction Status Date / Time KERI Inhibitors Allergy Wheezing Verified 06/09/20 17:52 HAIR DYE Allergy Unknown HIVES Uncoded 11/14/19 15:39 Active Medications: Current Medications Generic Name Dose Route Start Last Admin Trade Name Freq PRN Reason Stop Dose Admin Acetaminophen 650 mg 06/09/20 20:55 06/10/20 14:20 Acetaminophen 325 Mg Tablet PO 650 mg Q6H PRN Administration Pain, Mild (Pain Scale 1-3) Acetazolamide 250 mg 06/10/20 09:00 06/10/20 09:27 Acetazolamide 250 Mg Tablet PO 250 mg BID ALEXUS Administration Albuterol Sulfate 2.5 mg 06/10/20 02:25 Albuterol Sulfate (0.083%) 2.5 Mg/3 Ml Vial.Neb INHALE Q6H PRN Wheezing Albuterol/Ipratropium 3 ml 06/09/20 20:57 Albuterol/Iprat 2.5/0.5mg 3 Ml Ampul.Neb INHALE Q4H PRN Shortness of Breath/Wheezing Albuterol/Ipratropium 3 ml 06/10/20 08:00 06/10/20 15:20 Albuterol/Iprat 2.5/0.5mg 3 Ml Ampul.Neb INHALE 3 ml RQ6H WHILE AWAKE ALEXUS Administration Albuterol/Ipratropium 3 ml 06/10/20 03:30 06/10/20 05:16 Albuterol/Iprat 2.5/0.5mg 3 Ml Ampul.Neb INHALE Not Given Q6H ALEXUS Aspirin 81 mg 06/10/20 09:00 06/10/20 09:26 Aspirin Enteric Coated 81 Mg Tablet. PO 81 mg DAILY [facility] Administration Atorvastatin Calcium 80 mg 06/10/20 21:00 Atorvastatin Calcium 80 Mg Tablet PO BEDTIME ALEXUS Buprenorphine/Naloxone 2 film 06/10/20 09:00 06/10/20 09:26 Buprenorphine/Naloxone 8/2 Mg Film SUBLINGUAL 2 film DAILY [facility]US Administration Carvedilol 25 mg 06/10/20 09:00 06/10/20 09:26 Carvedilol 25 Mg Tablet PO 25 mg BID ALEXUS Administration Protocol Clonazepam 0.5 mg 06/10/20 02:25 06/10/20 14:20 Clonazepam 0.5 Mg Tablet PO 0.5 mg DAILY PRN Administration Anxiety Clopidogrel Bisulfate 75 mg 06/10/20 09:00 06/10/20 09:27 Clopidogrel Bisulfate 75 Mg Tablet PO 75 mg DAILY ALEXUS Administration Docusate Sodium 100 mg 06/09/20 20:55 Docusate Sodium 100 Mg Capsule PO DAILY PRN Constipation Famotidine 20 mg 06/10/20 09:00 06/10/20 09:26 Famotidine 20 Mg Tablet PO 20 mg DAILY ALEXUS Administration Folic Acid 1 mg 06/10/20 09:00 06/10/20 09:26 Folic Acid 1 Mg Tablet PO 1 mg DAILY ALEXUS Administration Gabapentin 600 mg 06/10/20 09:00 06/10/20 09:26 Gabapentin 600 Mg Tablet PO 600 mg BID ALEXUS Administration Hydralazine HCl 100 mg 06/10/20 09:00 06/10/20 09:27 Hydralazine Hcl 50 Mg Tablet PO 100 mg TID ALEXUS Administration Protocol Isosorbide Mononitrate 60 mg 06/10/20 09:00 06/10/20 09:26 Isosorbide Mononitrate 60 Mg Tab.Er.24h PO 60 mg DAILY ALEXUS Administration Protocol Losartan Potassium 50 mg 06/10/20 09:00 06/10/20 09:26 Losartan Potassium 50 Mg Tablet PO 50 mg DAILY ALEXUS Administration Protocol Methylprednisolone Sodium Succinate 40 mg 06/10/20 08:30 06/10/20 09:25 Methylprednisolone Sod Succ 125 Mg/2 Ml Vial IVPUSH 40 mg Q12H ALEXUS Administration Mirtazapine 7.5 mg 06/10/20 21:00 Mirtazapine 7.5 Mg Tablet PO BEDTIME [facility] Nicotine 14 mg 06/10/20 13:45 06/10/20 14:04 Nicotine 14 Mg Patch.Td24 TRANSDERMA 14 mg DAILY [facility]LEX[facility] Administration Nifedipine 90 mg 06/10/20 09:00 06/10/20 09:25 Nifedipine Er 90 Mg Tab.Er.24 PO 90 mg DAILY [facility] Administration Protocol Omeprazole 20 mg 06/11/20 06:30 Omeprazole 20 Mg Capsule. PO DAILY@0630 [facility] Pharmacy Consult 1 each 06/09/20 20:57 Consult Rx Vancomycin Dosing MISCELLANE DAILY PRN Consult order Sodium Chloride 3 ml 06/10/20 00:00 06/10/20 09:24 0.9 % Sodium Chloride Flush 3 Ml Syringe IVFLUSH Not Given QSHIFT [facility] Trazodone HCl 50 mg 06/10/20 21:00 Trazodone Hcl 50 Mg Tablet PO BEDTIME [facility] Zolpidem Tartrate 5 mg 06/10/20 02:25 Zolpidem Tartrate 5 Mg Tablet PO BEDTIME PRN Insomnia Home Medications Medication Instructions Recorded Confirmed Last Taken Type Combivent Respimat 1 puff INHALATION QID 06/09/20 06/20/20 Unknown History albuterol sulfate 1 amp INHALATION Q6H PRN 06/09/20 06/20/20 Unknown History aspirin 1 tab PO DAILY 06/09/20 06/20/20 Unknown History atorvastatin 1 tab PO BEDTIME 06/09/20 06/20/20 Unknown History buprenorphine-naloxone 2 strip SUBLINGUAL DAILY 06/09/20 06/20/20 Unknown History carvedilol 1 tab PO BID 06/09/20 06/20/20 Unknown History clonazepam 1 tab PO DAILY PRN 06/09/20 06/20/20 Unknown History clopidogrel 1 tab PO DAILY 06/09/20 06/20/20 Unknown History folic acid 1 tab PO DAILY 06/09/20 06/20/20 Unknown History gabapentin 1 tab PO BID 06/09/20 06/20/20 Unknown History hydralazine 2 tab PO TID 06/09/20 06/20/20 Unknown History isosorbide mononitrate 1 tab PO QAM 06/09/20 06/20/20 Unknown History losartan 1 tab PO DAILY 06/09/20 06/20/20 Unknown History nifedipine 1 tab PO DAILY 06/09/20 06/20/20 Unknown History pantoprazole 1 tab PO BID 06/09/20 06/20/20 Unknown History trazodone 1 tab PO BEDTIME 06/09/20 06/20/20 Unknown History zolpidem 1 tab PO BEDTIME PRN 06/09/20 06/20/20 Unknown History nicotine 1 patch TOPICAL DAILY 06/20/20 06/20/20 Unknown History Physical Exam Vital Signs: Vital Signs: Last Vital Signs Temp 98.9 F 06/09/20 20:55 Pulse 72 06/10/20 15:24 Resp 20 06/10/20 07:45 BP 196/76 H 06/10/20 09:27 Pulse Ox 92 06/10/20 07:45 Body Mass Index 22.3 Const: General: cooperative Orientation/consciousness: patient oriented x3 HENMT: Head: Yes normal to inspection Mouth: Normal oral and palatal mucosa present Resp: Effort & Inspection: able to speak in complete sentences Cardio: Rate: regular rate Rhythm: regular rhythm GI: Palpation (GI): Soft to palpation and nontender Skin: General skin exam: no rashes or lesions noted Neuro: General: patient oriented x3 Results Labs CBC & Chem 7: 06/12/20 05:43 06/12/20 05:43 Labs: Short CBC 06/09/20 06/10/20 Range/Units 19:30 06:42 WBC 14.5 H 11.1 H (4.8-10.8) X10*3/uL Hgb 11.4 L 11.2 L (14.0-18.0) g/dl Hct 37.4 L 37.9 L (42-52) % Plt Count 330 310 (160-400) X10*3/uL BMP 06/09/20 06/09/20 06/10/20 19:30 19:44 06:42 Sodium Cancelled 142 141 Potassium Cancelled 3.7 4.2 Chloride Cancelled 87 L 91 L Carbon Dioxide Cancelled 42 H* 43 H* BUN Cancelled 19 H 18 H Creatinine Cancelled 1.27 1.05 Calcium Cancelled 9.0 8.9 Liver Function 06/09/20 06/09/20 Range/Units 19:30 19:44 Total Bilirubin Cancelled 0.2 AST Cancelled 14 ALT Cancelled 12 Alkaline Phosphatase Cancelled 59 Albumin Cancelled 4.2 Urine 06/09/20 Range/Units 19:31 Urine Color YELLOW Urine Appearance CLEAR Urine pH 7.0 (5.0-8.0) Ur Specific [place] 1.015 (1.005-1.025) Urine Protein NEG (NEG-TRACE) MG/DL Urine Glucose (UA) NEG (NEG) MG/DL
[2020-06-10] MEDS: 0.9 % Sodium Chloride Flush 3 ML SYRINGE IVFLUSH (17:13)
--- NOTE | 2020-06-10 20:09 | PC.NURSE ---
report given to CHARLENE Del Rosario. Pt up and ambulates to restroom with steady even gait. Room is not ready floor will return call.
[2020-06-10] MEDS: Mirtazapine 7.5 MG TABLET PO (21:12)
[2020-06-10] MEDS: Atorvastatin Calcium 80 MG TABLET PO (21:13)
[2020-06-10] MEDS: traZODone HCL 50 MG TABLET PO (21:18)
[2020-06-11] VITALS (10 sets, daily range): BP systolic 119–172; BP diastolic 55–78; PULSE 64–84; RESP 19–20; TEMP 36.3–37.3; O2SAT 94–97
[2020-06-11] MEDS: 0.9 % Sodium Chloride Flush 3 ML SYRINGE IVFLUSH ×3 (01:22→16:31)
[2020-06-11 06:15] LABS: VBG Base Excess 17.2 mmol/L; VBG HCO3 45 mmol/L (22-26); VBG pCO2 75 mmHg; VBG pH 7.39 (7.32-7.43); VBG pO2 47 mmHg
[2020-06-11] MEDS: Omeprazole 20 MG CAPSULE.DR PO (06:15)
[2020-06-11 06:25] LABS: Hematocrit 34.3 % (42-52); Hemoglobin 10.5 g/dl (14.0-18.0); Imm Gran Abs Auto 0.04 X10*3/uL (0.00-0.03); Imm Gran Pct Auto 0.3 % (0.0-0.4); Lymphocytes Absolute Auto 0.4 X10*3/uL (1.2-4.9); Lymphocytes Percent Auto 3.2 % (20-40); MANUAL DIFF FLAG SCAN; Mean Corpuscular HGB Conc 30.6 g/dl (31.0-36.0); Mean Corpuscular Hemoglobin 31.1 pg (27.0-33.0); Mean Corpuscular Volume 101.5 fL (80-98); Monocytes Absolute Auto 0.3 X10*3/uL (0.1-1.2); Monocytes Percent Auto 2.4 % (2-11); Neutrophils Absolute Auto 10.8 X10*3/uL (2.0-8.3); Neutrophils Percent Auto 94.1 % (45-73); Platelet Count 243 X10*3/uL (160-400); Red Blood Count 3.38 X10*6/uL (4.60-5.80); Red Cell Distribution Width 14.2 % (11.0-16.0); SCAN SMEAR FLAG 1; White Blood Count 11.5 X10*3/uL (4.8-10.8)
[2020-06-11 06:34] LABS: Anion Gap 12 (12-20); Blood Urea Nitrogen 35 mg/dL (9-16); Calcium 8.7 mg/dL (8.4-10.2); Carbon Dioxide 37 mmol/L (22-29); Chloride 93 mmol/L (96-108); Creatinine Clr Calc Pharmacy 57.8; Estimated Glomerular Filt Rate 51; Glucose Random 148 mg/dL (60-115); Potassium 3.9 mmol/L (3.3-5.1); Sodium 138 mmol/L (135-145)
[2020-06-11 07:30] LABS: Venous Blood Gas Refer to POC result
[2020-06-11] MEDS: Albuterol/Iprat 2.5/0.5MG 3 ML AMPUL.NEB INHALE ×2 (07:52→19:10)
[2020-06-11 08:23] LABS: SLIDE REVIEW VERIFIED
[2020-06-11 09:28] LABS: Procalcitonin 0.06 ng/mL
[2020-06-11] MEDS: methylPREDNISolone Sod Succ 125 MG/2 ML VIAL 40 MG IVPUSH ×2 (09:53→20:21)
[2020-06-11] MEDS: Nicotine 14 MG PATCH.TD24 TRANSDERMA (09:54)
[2020-06-11] MEDS: Aspirin Enteric Coated 81 MG TABLET.DR PO (09:54)
[2020-06-11] MEDS: hydrALAZINE HCl 50 MG TABLET 100 MG PO ×3 (09:54→20:22)
[2020-06-11] MEDS: Buprenorphine/Naloxone 8/2 mg FILM 2 FILM SUBLINGUAL (09:54)
[2020-06-11] MEDS: Losartan Potassium 50 MG TABLET PO (09:54)
[2020-06-11] MEDS: Gabapentin 600 MG TABLET PO ×2 (09:54→20:22)
[2020-06-11] MEDS: NIFEdipine ER 90 MG TAB.ER.24 PO (09:54)
[2020-06-11] MEDS: Famotidine 20 MG TABLET PO (09:54)
[2020-06-11] MEDS: carvediloL 25 MG TABLET PO ×2 (09:55→20:22)
[2020-06-11] MEDS: Folic Acid 1 MG TABLET PO (09:55)
[2020-06-11] MEDS: Clopidogrel Bisulfate 75 MG TABLET PO (09:55)
[2020-06-11] MEDS: Isosorbide Mononitrate 60 MG TAB.ER.24H PO (09:55)
[2020-06-11] MEDS: clonazePAM 0.5 MG TABLET PO (10:53)
[2020-06-11] MEDS: Acetaminophen 325 MG TABLET 650 MG PO ×2 (10:53→20:22)
[2020-06-11] MEDS: Cyclobenzaprine HCl 5 MG TABLET PO (12:05)
--- NOTE | 2020-06-11 17:34 | P.PNIM_ITS ---
Subjective Subjective Date of Service: 06/11/20 Interval History: dyspnea improved no purulent sputum no fever Physical Exam Vital Signs: Vital Signs: Last Vital Signs Temp 99.1 F 06/11/20 16:00 Pulse 64 06/11/20 16:30 Resp 19 06/11/20 16:00 BP 119/55 L 06/11/20 16:30 Pulse Ox 94 06/11/20 16:00 Body Mass Index 22.3 Gen: in no acute distress HEENT: sclera anicteric, moist mucus membranes Neck: supple Lungs: diminished bilaterally Heart: regular rate and rhythm, no murmurs Abd: soft, non-tender, non-distended Ext: no edema Skin: warm/well-perfused Neuro: alert and oriented x3, no focal findings Psych: appropriate affect Objective Data Current Medications Generic Name Dose Route Start Last Admin Trade Name Freq PRN Reason Stop Dose Admin Acetaminophen 650 mg 06/09/20 20:55 06/11/20 10:53 Acetaminophen 325 Mg Tablet PO 650 mg Q6H PRN Administration Pain, Mild (Pain Scale 1-3) Albuterol/Ipratropium 3 ml 06/09/20 20:57 Albuterol/Iprat 2.5/0.5mg 3 Ml Ampul.Neb INHALE Q4H PRN Shortness of Breath/Wheezing Albuterol/Ipratropium 3 ml 06/10/20 08:00 06/11/20 14:31 Albuterol/Iprat 2.5/0.5mg 3 Ml Ampul.Neb INHALE Not Given RQ6H WHILE AWAKE [facility] Aspirin 81 mg 06/10/20 09:00 06/11/20 09:54 Aspirin Enteric Coated 81 Mg Tablet. PO 81 mg DAILY ALEXUS Administration Atorvastatin Calcium 80 mg 06/10/20 21:00 06/10/20 21:13 Atorvastatin Calcium 80 Mg Tablet PO 80 mg BEDTIME ALEXUS Administration Buprenorphine/Naloxone 2 film 06/10/20 09:00 06/11/20 09:54 Buprenorphine/Naloxone 8/2 Mg Film SUBLINGUAL 2 film DAILY ALEXUS Administration Carvedilol 25 mg 06/10/20 09:00 06/11/20 09:55 Carvedilol 25 Mg Tablet PO 25 mg BID ALEXUS Administration Protocol Clonazepam 0.5 mg 06/10/20 02:25 06/11/20 10:53 Clonazepam 0.5 Mg Tablet PO 0.5 mg DAILY PRN Administration Anxiety Clopidogrel Bisulfate 75 mg 06/10/20 09:00 06/11/20 09:55 Clopidogrel Bisulfate 75 Mg Tablet PO 75 mg DAILY ALEXUS Administration Cyclobenzaprine HCl 5 mg 06/11/20 11:43 06/11/20 12:05 Cyclobenzaprine Hcl 5 Mg Tablet PO 5 mg TID PRN Administration neck/back pain Docusate Sodium 100 mg 06/09/20 20:55 Docusate Sodium 100 Mg Capsule PO DAILY PRN Constipation Doxycycline Hyclate 100 mg 06/10/20 16:45 06/11/20 16:30 Doxycycline Hyclate 100 Mg Tablet PO 100 mg Q12H ALEXUS Administration Enoxaparin Sodium 40 mg 06/10/20 17:00 06/11/20 16:31 Enoxaparin Sodium 40 Mg/0.4 Ml Syringe SUBCUT Not Given Q24H ALEXUS Famotidine 20 mg 06/10/20 09:00 06/11/20 09:54 Famotidine 20 Mg Tablet PO 20 mg DAILY ALEXUS Administration Folic Acid 1 mg 06/10/20 09:00 06/11/20 09:55 Folic Acid 1 Mg Tablet PO 1 mg DAILY ALEXUS Administration Gabapentin 600 mg 06/10/20 09:00 06/11/20 09:54 Gabapentin 600 Mg Tablet PO 600 mg BID ALEXUS Administration Hydralazine HCl 100 mg 06/10/20 09:00 06/11/20 16:30 Hydralazine Hcl 50 Mg Tablet PO 100 mg TID ALEXUS Administration Protocol Isosorbide Mononitrate 60 mg 06/10/20 09:00 06/11/20 09:55 Isosorbide Mononitrate 60 Mg Tab.Er.24h PO 60 mg DAILY ALEXUS Administration Protocol Losartan Potassium 50 mg 06/10/20 09:00 06/11/20 09:54 Losartan Potassium 50 Mg Tablet PO 50 mg DAILY ALEXUS Administration Protocol Methylprednisolone Sodium Succinate 40 mg 06/10/20 08:30 06/11/20 09:53 Methylprednisolone Sod Succ 125 Mg/2 Ml Vial IVPUSH 40 mg Q12H ALEXUS Administration Mirtazapine 7.5 mg 06/10/20 21:00 06/10/20 21:12 Mirtazapine 7.5 Mg Tablet PO 7.5 mg BEDTIME ALEXUS Administration Nicotine 14 mg 06/10/20 13:45 06/11/20 09:54 Nicotine 14 Mg Patch.Td24 TRANSDERMA 14 mg DAILY ALEXUS Administration Nifedipine 90 mg 06/10/20 09:00 06/11/20 09:54 Nifedipine Er 90 Mg Tab.Er.24 PO 90 mg DAILY ALEXUS Administration Protocol Omeprazole 20 mg 06/11/20 06:30 06/11/20 06:15 Omeprazole 20 Mg Capsule.Dr PO 20 mg DAILY@0630 [facility] Administration Pharmacy Consult 1 each 06/09/20 20:57 Consult Rx Vancomycin Dosing MISCELLANE DAILY PRN Consult order Sodium Chloride 3 ml 06/10/20 00:00 06/11/20 16:31 0.9 % Sodium Chloride Flush 3 Ml Syringe IVFLUSH 3 ml QSHIFT [facility] Administration Trazodone HCl 50 mg 06/10/20 21:00 06/10/20 21:18 Trazodone Hcl 50 Mg Tablet PO 50 mg BEDTIME ALEXUS Administration Zolpidem Tartrate 5 mg 06/10/20 02:25 Zolpidem Tartrate 5 Mg Tablet PO BEDTIME PRN Insomnia Labs CBC & Chem 7: 06/11/20 05:45 06/11/20 05:45 Labs: Laboratory Results - last 24 hr 06/11/20 06/11/20 06/11/20 05:45 05:45 05:45 WBC 11.5 H RBC 3.38 L Hgb 10.5 L Hct 34.3 L MCV 101.5 H MCH 31.1 MCHC 30.6 L RDW 14.2 Plt Count 243 MPV 9.0 L Immature Gran % (Auto) 0.3 Neut % (Auto) 94.1 H Lymph % (Auto) 3.2 L [place] % (Auto) 2.4 Eos % (Auto) 0.0 Baso % (Auto) 0.0 Lymph # (Auto) 0.4 L [place] # (Auto) 0.3 Eos # (Auto) 0.0 Baso # (Auto) 0.0 Abs Immat Gran (auto) 0.04 H Absolute Neuts (auto) 10.8 H Absolute Nucleated RBC 0.000 Nucleated RBC % (auto) 0.0 Smear Tech's Comments VERIFIED VBG pH VBG pCO2 VBG pO2 VBG HCO3 VBG O2 Saturation VBG Base Excess Sodium 138 Potassium 3.9 Chloride 93 L Carbon Dioxide 37 H Anion Gap 12 BUN 35 H D Creatinine 1.43 H Estim Creat Clear Calc 57.8 Estimated GFR 51 Random Glucose 148 H Calcium 8.7 Procalcitonin 0.06 06/11/20 05:51 WBC RBC Hgb Hct MCV MCH MCHC RDW Plt Count MPV Immature Gran % (Auto) Neut % (Auto) Lymph % (Auto) [place] % (Auto) Eos % (Auto) Baso % (Auto) Lymph # (Auto) [place] # (Auto) Eos # (Auto) Baso # (Auto) Abs Immat Gran (auto) Absolute Neuts (auto) Absolute Nucleated RBC Nucleated RBC % (auto) Smear Tech's Comments VBG pH 7.39 VBG pCO2 75 VBG pO2 47 VBG HCO3 45 H VBG O2 Saturation 75.0 VBG Base Excess 17.2 Sodium Potassium Chloride Carbon Dioxide Anion Gap BUN Creatinine Estim Creat Clear Calc Estimated GFR Random Glucose Calcium Procalcitonin Microbiology Microbiology Results: Microbiology 06/09/20 19:43 Blood - Venous Blood Culture - Preliminary No growth after 24 hours. 06/09/20 19:30 Blood - Venous Blood Culture - Preliminary No growth after 24 hours. Assessment and Plan (1) Chronic hypercapnic respiratory failure: Status: Acute (2) COPD exacerbation: Status: Acute Assessment and Plan: hospital day #3 60-year-old M with COPD, chronic hypoxic and hypercarbic respiratory failure on home iVAPS ventilator, opiate dependence on Suboxone, hypertension recently discharged from [facility] for pneumonia admitted for dyspnea from COPD exacerbation # COPD exacerbation - IV steroids d#3, nebulized bronchodilators, doxycycline d#2 # chronic hypoxic/hypercarbic respiratory failure # chronic respiratory acidosis - iVAPS at night- instructed to bring in home machine - suppl O2, target SaO2 88-92% - appreciate pulmonology consult # atypical chest pain - delta hs-Tn-I <50%, no EKG changes # HTN - carvedilol, hydralazine, Imdur, losartan, nifedipine # PAD - aspirin, clopidogrel, statin # opioid depedence - Suboxone # tobacco abuse - NRT # anxiety - clonazepam, mirtazapine # VTE ppx - LMWH # dispo - likely home with VNA tomorrow
[2020-06-11] MEDS: Zolpidem Tartrate 5 MG TABLET PO (20:22)
[2020-06-11] MEDS: Atorvastatin Calcium 80 MG TABLET PO (20:22)
[2020-06-11] MEDS: traZODone HCL 50 MG TABLET PO (20:22)
[2020-06-11] MEDS: Mirtazapine 7.5 MG TABLET PO (20:22)
[2020-06-12] VITALS (7 sets, daily range): BP systolic 144–176; BP diastolic 77–84; PULSE 63–73; RESP 18–20; TEMP 36.4–36.5; O2SAT 94–99
[2020-06-12] MEDS: 0.9 % Sodium Chloride Flush 3 ML SYRINGE IVFLUSH ×2 (01:37→09:27)
[2020-06-12 05:55] LABS: Basophils Percent Auto 0.1 % (0-2); Hematocrit 32.8 % (42-52); Imm Gran Abs Auto 0.06 X10*3/uL (0.00-0.03); Imm Gran Pct Auto 0.6 % (0.0-0.4); Lymphocytes Absolute Auto 0.5 X10*3/uL (1.2-4.9); Lymphocytes Percent Auto 4.9 % (20-40); MANUAL DIFF FLAG SCAN; Mean Corpuscular HGB Conc 30.5 g/dl (31.0-36.0); Mean Corpuscular Hemoglobin 30.2 pg (27.0-33.0); Mean Corpuscular Volume 99.1 fL (80-98); Mean Platelet Volume 9.4 fL (9.4-12.4); Monocytes Absolute Auto 0.5 X10*3/uL (0.1-1.2); Monocytes Percent Auto 5.2 % (2-11); Neutrophils Absolute Auto 9.3 X10*3/uL (2.0-8.3); Neutrophils Percent Auto 89.2 % (45-73); Platelet Count 214 X10*3/uL (160-400); Red Blood Count 3.31 X10*6/uL (4.60-5.80); Red Cell Distribution Width 14.2 % (11.0-16.0); SCAN SMEAR FLAG 1; White Blood Count 10.4 X10*3/uL (4.8-10.8)
[2020-06-12] MEDS: Omeprazole 20 MG CAPSULE.DR PO (06:09)
[2020-06-12 06:26] LABS: Anion Gap 8 (12-20); Blood Urea Nitrogen 47 mg/dL (9-16); Calcium 8.7 mg/dL (8.4-10.2); Carbon Dioxide 37 mmol/L (22-29); Chloride 96 mmol/L (96-108); Creatinine Clr Calc Pharmacy 55.4; Estimated Glomerular Filt Rate 48; Glucose Random 156 mg/dL (60-115); Sodium 137 mmol/L (135-145)
[2020-06-12 06:31] LABS: SLIDE REVIEW VERIFIED
[2020-06-12 06:51] LABS: VBG Base Excess 12.9 mmol/L; VBG HCO3 40 mmol/L (22-26); VBG pCO2 64 mmHg; VBG pO2 73 mmHg
[2020-06-12 06:54] LABS: Venous Blood Gas Refer to POC result
[2020-06-12] MEDS: Albuterol/Iprat 2.5/0.5MG 3 ML AMPUL.NEB INHALE (07:36)
[2020-06-12] MEDS: NIFEdipine ER 90 MG TAB.ER.24 PO (09:25)
[2020-06-12] MEDS: Nicotine 14 MG PATCH.TD24 TRANSDERMA (09:25)
[2020-06-12] MEDS: Folic Acid 1 MG TABLET PO (09:26)
[2020-06-12] MEDS: Losartan Potassium 50 MG TABLET PO (09:26)
[2020-06-12] MEDS: Buprenorphine/Naloxone 8/2 mg FILM 2 FILM SUBLINGUAL (09:26)
[2020-06-12] MEDS: Clopidogrel Bisulfate 75 MG TABLET PO (09:26)
[2020-06-12] MEDS: Gabapentin 600 MG TABLET PO (09:26)
[2020-06-12] MEDS: Aspirin Enteric Coated 81 MG TABLET.DR PO (09:26)
[2020-06-12] MEDS: Famotidine 20 MG TABLET PO (09:26)
[2020-06-12] MEDS: carvediloL 25 MG TABLET PO (09:26)
[2020-06-12] MEDS: hydrALAZINE HCl 50 MG TABLET 100 MG PO (09:26)
[2020-06-12] MEDS: Isosorbide Mononitrate 60 MG TAB.ER.24H PO (09:27)
[2020-06-12] MEDS: methylPREDNISolone Sod Succ 125 MG/2 ML VIAL 40 MG IVPUSH (09:27)
--- NOTE | 2020-06-12 10:00 | P.DS_ITS ---
DS: Providers Provider Date of Service: 06/12/20 Date of admission: 06/09/20 20:55 Primary care physician: Vesta Goddard MD Consults: 06/09/20 20:57 Consult to Infectious Diseases Routine Consulting Provider: Luz Hilton Reason for consultation: HCAP Consult to Pulmonology Routine Consulting Provider: David Rendon Reason for consultation: COPD exacerbation; DS: Diagnosis Discharge Diagnosis (1) COPD exacerbation: Status: Acute (2) Tobacco abuse: Status: Acute (3) Chronic respiratory failure with hypoxia and hypercapnia: Status: Acute DS: Medications Discharge Medications Home Medications: Home Medications Medication Instructions Recorded Confirmed Combivent Respimat 1 puff INHALATION QID 06/09/20 06/09/20 albuterol sulfate 1 amp INHALATION Q6H PRN 06/09/20 06/09/20 aspirin 1 tab PO DAILY 06/09/20 06/09/20 atorvastatin 1 tab PO BEDTIME 06/09/20 06/09/20 buprenorphine-naloxone 2 strip SUBLINGUAL DAILY 06/09/20 06/09/20 carvedilol 1 tab PO BID 06/09/20 06/09/20 clonazepam 1 tab PO DAILY PRN 06/09/20 06/09/20 clopidogrel 1 tab PO DAILY 06/09/20 06/09/20 folic acid 1 tab PO DAILY 06/09/20 06/09/20 gabapentin 1 tab PO BID 06/09/20 06/09/20 hydralazine 2 tab PO TID 06/09/20 06/09/20 isosorbide mononitrate 1 tab PO QAM 06/09/20 06/09/20 losartan 1 tab PO DAILY 06/09/20 06/09/20 mirtazapine 1 tab PO BEDTIME 06/09/20 06/09/20 nifedipine 1 tab PO DAILY 06/09/20 06/09/20 pantoprazole 1 tab PO BID 06/09/20 06/09/20 trazodone 1 tab PO BEDTIME 06/09/20 06/09/20 zolpidem 1 tab PO BEDTIME PRN 06/09/20 06/09/20 Previous Rx's Medication Instructions Recorded doxycycline hyclate 100 mg PO Q12H #6 tab 06/12/20 nicotine 14 mg TRANSDERMAL DAILY #28 ea 06/12/20 prednisone 40 mg PO DAILY #6 tab 06/12/20 DS: Summary Hospital Course Hospital Course: From the admission history and physical by hospitalist Harjit Pearl, 06/09/20: 60-year-old male with a past medical history of hypertension, hyperlipidemia, opiate dependence on Suboxone, COPD on 3 L of home oxygen, presented to the hospital with a chief complaint of shortness of breath. Patient mentioned that when he was getting into the car he suddenly felt short of breath and subsequently had a panic episode, called EMS and presented to the ER for further evaluation. Patient denies any fever chills cough. Patient mentioned that he was recently discharged from the [facility] about a week ago and finished a course of antibiotics for pneumonia. Denies any chest pain palpitations lightheadedness or dizziness at the time of my interview. Patient mentions that his sleep breathing improved significantly after came to the ER. Review of all other systems is negative except mentioned above. ER course: Per ER team patient was noted to be tachypnea and mildly in respiratory distress, saturating 88% on 3 L of oxygen. Given Solu-Medrol nebulizations and antibiotics a chest x-ray showed new infiltrates. Mention the patient respiratory status improved. Admitted to the hospital for further management. Troponin pending. The patient was admitted to the [facility] and treated with IV steroids and nebulized bronchodilators. Procalcitonin remained low and antibiotics were narrowed from vancomycin plus piperacillin-tazobactam to doxycycline alone as for COPD; he was not thought to have an acute bacterial pneumonia. The importance of adhering with his home iVAPS ventilator was counseled. Smoking cessation was also counseled and he was prescribed nicotine replacement upon discharge. 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 Time Spent with Patient Time attestation: Total time spent providing and/or coordinating discharge services: 35 Discharge coordination time: Greater than 30 minutes Physical Exam Vital Signs: Vital Signs: Last Vital Signs Temp 97.7 F 06/12/20 07:49 Pulse 73 06/12/20 09:27 Resp 20 06/12/20 07:49 BP 176/77 H 06/12/20 09:27 Pulse Ox 97 06/12/20 07:49 Body Mass Index 22.3 Gen: in no acute distress HEENT: sclera anicteric, moist mucus membranes Neck: supple Lungs: good air entry, soft end-exp wheeze at bases bilaterally Heart: regular rate and rhythm, no murmurs Abd: soft, non-tender, non-distended Ext: no edema Skin: warm/well-perfused Neuro: alert and oriented x3, no focal findings Psych: appropriate affect DS: Data Data Completed and Pending Labs on day of discharge: Laboratory Results WBC 10.4 X10*3/uL (4.8-10.8) 06/12/20 05:43 RBC 3.31 X10*6/uL (4.60-5.80) L 06/12/20 05:43 Hgb 10.0 g/dl (14.0-18.0) L 06/12/20 05:43 Hct 32.8 % (42-52) L 06/12/20 05:43 MCV 99.1 fL (80-98) H 06/12/20 05:43 MCH 30.2 pg (27.0-33.0) 06/12/20 05:43 MCHC 30.5 g/dl (31.0-36.0) L 06/12/20 05:43 RDW 14.2 % (11.0-16.0) 06/12/20 05:43 Plt Count 214 X10*3/uL (160-400) 06/12/20 05:43 MPV 9.4 fL (9.4-12.4) 06/12/20 05:43 Immature Gran % (Auto) 0.6 % (0.0-0.4) H 06/12/20 05:43 Neut % (Auto) 89.2 % (45-73) H 06/12/20 05:43 Lymph % (Auto) 4.9 % (20-40) L 06/12/20 05:43 [place] % (Auto) 5.2 % (2-11) 06/12/20 05:43 Eos % (Auto) 0.0 % (0-4) 06/12/20 05:43 Baso % (Auto) 0.1 % (0-2) 06/12/20 05:43 Lymph # (Auto) 0.5 X10*3/uL (1.2-4.9) L 06/12/20 05:43 [place] # (Auto) 0.5 X10*3/uL (0.1-1.2) 06/12/20 05:43 Eos # (Auto) 0.0 X10*3/uL (0.0-0.4) 06/12/20 05:43 Baso # (Auto) 0.0 X10*3/uL (0.0-0.2) 06/12/20 05:43 Abs Immat Gran (auto) 0.06 X10*3/uL (0.00-0.03) H 06/12/20 05:43 Absolute Neuts (auto) 9.3 X10*3/uL (2.0-8.3) H 06/12/20 05:43 Absolute Nucleated RBC 0.000 X10*3/uL (0.0-0.012) 06/12/20 05:43 Nucleated RBC % (auto) 0.0 /100WBC (0.0-0.2) 06/12/20 05:43 Smear Tech's Comments VERIFIED 06/12/20 05:43 PT 11.1 SEC (10.8-13.0) 06/09/20 19:30 INR 0.9 (0.9-1.1) 06/09/20 19:30 APTT 31.2 SEC (24.1-38.0) 06/09/20 19:30 D-Dimer 660 NG/ML 06/09/20 23:29 O2 Saturation 96.0 % 06/10/20 01:03 ABG pH at Pt Temp 7.39 (7.35-7.45) 06/10/20 01:03 ABG pH (Temp Correct) 7.39 (7.35-7.45) 06/10/20 01:03 ABG pCO2 at Pt Temp 92 mmHg (32-45) H* 06/10/20 01:03 ABG pCO2 (Temp Corrct 93 mmHg (32-45) H* 06/10/20 01:03 ABG pO2 at Pt Temp 81 mmHg (83-108) L 06/10/20 01:03 ABG pO2 (Temp Correct 82 (83-108) L 06/10/20 01:03 ABG HCO3 56 mmol/L (22-26) H 06/10/20 01:03 ABG Base Excess (Actual) 26.1 mmol/L 06/10/20 01:03 VBG pH 7.40 (7.32-7.43) 06/12/20 05:49 VBG pCO2 64 mmHg 06/12/20 05:49 VBG pO2 73 mmHg 06/12/20 05:49 VBG HCO3 40 mmol/L (22-26) H 06/12/20 05:49 VBG O2 Saturation 93.0 % 06/12/20 05:49 VBG Base Excess 12.9 mmol/L 06/12/20 05:49 Sodium 137 mmol/L (135-145) 06/12/20 05:43 Potassium 4.0 mmol/L (3.3-5.1) 06/12/20 05:43 Chloride 96 mmol/L (96-108) 06/12/20 05:43 Carbon Dioxide 37 mmol/L (22-29) H 06/12/20 05:43 Anion Gap 8 (12-20) L 06/12/20 05:43 BUN 47 mg/dL (9-16) H 06/12/20 05:43 Creatinine 1.49 mg/dL (0.5-1.4) H 06/12/20 05:43 Estim Creat Clear Calc 55.4 06/12/20 05:43 Estimated GFR 48 06/12/20 05:43 Random Glucose 156 mg/dL (60-115) H 06/12/20 05:43 Lactic Acid 0.5 mmol/L (0.5-2.0) 06/09/20 19:30 Calcium 8.7 mg/dL (8.4-10.2) 06/12/20 05:43 Ferritin 12 ng/mL (20-250) L 06/09/20 19:44 Total Bilirubin 0.2 mg/dL (0.0-1.0) 06/09/20 19:44 AST 14 U/L (5-37) 06/09/20 19:44 ALT 12 U/L (0-40) 06/09/20 19:44 Alkaline Phosphatase 59 U/L (39-117) 06/09/20 19:44 Lactate Dehydrogenase 172 U/L (118-273) 06/09/20 19:44 Troponin I High Sens 24.7 ng/L (<3.5-35.0) 06/09/20 23:29 C-Reactive Protein 0.30 mg/dL (< or = 0.50) 06/09/20 19:44 B-Natriuretic Peptide 143 pg/mL (<100) H 06/09/20 19:30 Total Protein 6.5 g/dL (6.5-8.0) 06/09/20 19:44 Albumin 4.2 g/dL (3.5-5.0) 06/09/20 19:44 Procalcitonin 0.06 ng/mL 06/11/20 05:45 Urine Color YELLOW 06/09/20 19:31 Urine Appearance CLEAR 06/09/20 19:31 Urine pH 7.0 (5.0-8.0) 06/09/20 19:31 Ur Specific [place] 1.015 (1.005-1.025) 06/09/20 19:31 Urine Protein NEG MG/DL (NEG-TRACE) 06/09/20 19:31 Urine Glucose (UA) NEG MG/DL (NEG) 06/09/20 19:31 Urine Ketones NEG MG/DL (NEG) 06/09/20 19:31 Urine Blood NEG (NEG) 06/09/20 19:31 Urine Nitrite NEG (NEG) 06/09/20 19:31 Ur Leukocyte Esterase NEG (NEG) 06/09/20 19:31 Urine RBC 0 /HPF (0) 06/09/20 19:31 Urine WBC 0 /HPF (0-4) 06/09/20 19:31 Ur Squamous Epith Cells NONE /LPF 06/09/20 19:31 Urine Bacteria NONE /LPF 06/09/20 19:31 Coronavirus (PCR) NEGATIVE (Negative) 06/09/20 19:44 Influenza Type A (PCR) NEGATIVE (Negative) 06/09/20 19:44 Influenza Type B (PCR) NEGATIVE (Negative) 06/09/20 19:44 RSV RNA Qual (PCR) NEGATIVE (Negative) 06/09/20 19:44 Impressions Chest X-Ray 06/09/20 17:39 IMPRESSION: Patchy bilateral airspace disease new from the prior study. Early or atypical infectious etiology would be suspected. Clinical correlation would be recommended. Chest CT 06/09/20 19:30 IMPRESSION: 1. Moderate emphysema. 2. Mild dependent opacities bilaterally are nonspecific. Atelectasis is suspected, however, developing infiltrate is not excluded. Clinical correlation recommended. Follow-up imaging can be obtained as clinically indicated. 3. 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 4. Cholelithiasis. Discharge Plan Discharge Patient Disposition: Home, Self-Care Discharge Diagnosis: COPD exacerbation Referrals: Vesta Goddard MD [Primary Care Provider] - 1 Week Discharge Medications: New doxycycline hyclate 100 mg Tablet 100 mg PO Q12H Qty: 6 RF: 0 nicotine 14 mg/24 hr Patch 24 Hour 14 mg transdermal DAILY Qty: 28 RF: 0 prednisone 20 mg tablet 40 mg PO DAILY Qty: 6 RF: 0 Continued losartan 50 mg tablet 1 tab PO DAILY RF: 0 carvedilol 25 mg tablet 1 tab PO BID RF: 0 gabapentin 600 mg tablet 1 tab PO BID RF: 0 albuterol sulfate 2.5 mg /3 mL (0.083 %) solution for nebulization 1 amp inhalation Q6H PRN (Reason: Wheezing) RF: 0 trazodone 50 mg tablet 1 tab PO BEDTIME RF: 0 clonazepam 0.5 mg tablet 1 tab PO DAILY PRN (Reason: Anxiety) RF: 0 aspirin 81 mg tablet,delayed release (DR/EC) 1 tab PO DAILY RF: 0 pantoprazole 20 mg tablet,delayed release (DR/EC) 1 tab PO BID RF: 0 isosorbide mononitrate 60 mg tablet extended release 24 hr 1 tab PO QAM RF: 0 nifedipine 90 mg tablet extended release 24hr 1 tab PO DAILY RF: 0 hydralazine 50 mg tablet 2 tab PO TID RF: 0 zolpidem 5 mg tablet 1 tab PO BEDTIME PRN (Reason: Insomnia) RF: 0 buprenorphine-naloxone 8-2 mg film 2 strip sublingual DAILY RF: 0 Combivent Respimat 20-100 mcg/actuation mist 1 puff inhalation QID RF: 0 atorvastatin 80 mg tablet 1 tab PO BEDTIME RF: 0 clopidogrel 75 mg tablet 1 tab PO DAILY RF: 0 mirtazapine 7.5 mg tablet 1 tab PO BEDTIME RF: 0 folic acid 1 mg tablet 1 tab PO DAILY RF: 0 Discharge Orders: Discharge Order (Routine); Ordered 06/12/20 Ordered By: Katie Gutierrez Diet: advance to usual diet Activity on Discharge: no smoking Stand Alone Forms: Patient Portal Discharge page Care Plan Goals: improved lung health Health Concerns: COPD, hypercarbic respiratory failure, tobacco abuse Plan of Treatment: take prednisone 40 mg daily for 3 days, doxycycline 100 mg twice daily for 3 days Continue inhalers 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
[2020-06-12] MEDS: clonazePAM 0.5 MG TABLET PO (11:23)
[2020-06-14 15:36] LABS: Legionella Ag Urine Not Detected (Not Detected)
[2020-06-14 18:27] LABS: Strep Pneumo Ag urine Not Detected (Not Detected)
== END 2020-06-12 11:15 | disposition home or self-care (01) | DRG 190 ==
LOC: HO.ED 19:31 → HO.EDOVER 22:12 → HO.IMC 06-10 18:27
PROVIDERS: Nurse Practitioner Primary Care; Admitting Provider Hospitalist; Emergency Provider Emergency Medicine; PCP Internal Medicine; Visit Provider Family Medicine
DX: J44.1 Chronic obstructive pulmonary disease with (acute) exacerbation (principal); J18.9 Pneumonia, unspecified organism; F11.20 Opioid dependence, uncomplicated; J96.12 Chronic respiratory failure with hypercapnia; J96.11 Chronic respiratory failure with hypoxia; E87.2 Acidosis; E78.5 Hyperlipidemia, unspecified; F41.9 Anxiety disorder, unspecified; I73.9 Peripheral vascular disease, unspecified; J44.0 Chronic obstructive pulmonary disease with (acute) lower respiratory infection; F17.210 Nicotine dependence, cigarettes, uncomplicated; Z99.81 Dependence on supplemental oxygen; Z20.822 Contact with and (suspected) exposure to COVID-19; Z79.02 Long term (current) use of antithrombotics/antiplatelets; Z79.82 Long term (current) use of aspirin; Z79.899 Other long term (current) drug therapy
CPT/HCPCS: 0241U; 36415; 36600; 71045; 71250; 80048; 80053; 81001; 82728; 83605; 83615; 83880; 84145; 84484; 85025; 85379; 85610; 85730; 86140; 87040; 87449; 87899; 93005; 94640; 94644; 94660; 96365; 96368; 96375; 99285; J2543; J2930; J3370

== ENCOUNTER 2020-06-20 11:40 | Inpatient (IN) | payer OTHER, SELFPAY ==
[2020-06-20] VITALS (17 sets, daily range): BP systolic 89–160; BP diastolic 47–68; PULSE 55–78; RESP 12–26; TEMP 36.5–36.9; O2SAT 89–99; BMI 24.9; BMI 22.0
--- NOTE | ~2020-06-20 | XR_ITS ---
EXAMINATION: XR CHEST CLINICAL INFORMATION: Shortness of breath. COMPARISON: 06/09/2020 chest radiograph. TECHNIQUE: Frontal view of the chest was obtained. FINDINGS: Minimal bibasilar linear atelectasis versus scarring without significant change. The lungs are otherwise clear. The heart and mediastinal structures are unremarkable. The cervical spine fusion plate appears intact without abnormality. XR/XR chest 1V IMPRESSION: No acute cardiopulmonary process.
--- NOTE | 2020-06-20 11:57 | ECG_ITS ---
Test Reason : SOB Blood Pressure : / mmHG Vent. Rate : 063 BPM Atrial Rate : 063 BPM P-R Int : 170 ms QRS Dur : 088 ms QT Int : 442 ms P-R-T Axes : 065 022 056 degrees QTc Int : 452 ms Normal sinus rhythm Possible Left atrial enlargement Borderline ECG When compared with ECG of 09-JUN-2020 18:32, No significant change was found Referred By: Juliana Rodriguez Electronically Signed By:LARISA DEVLIN MD
--- NOTE | 2020-06-20 12:10 | ED.SOB ---
HPI - SOB/Dyspnea General Chief Complaint: Dyspnea Stated Complaint: DIFF BREATHING,SEEN REC FOR SAME,COVID STATUS UNK Time Seen by Provider: 06/20/20 11:56 Source: patient and EMS Mode of arrival: EMS Limitations: no limitations History of Present Illness HPI Narrative: 60-year-old male came in by ambulance for evaluation of difficulty breathing. This is a 60-year-old male history of COPD, use 24/7 supplemental oxygen 3 L at home, also use CPAP machine at nighttime, patient had a history of intubation in the past. Presented with 1 day history of shortness of breath and wheezing, with dry coughing, no chest pain, patient had multiple episodes similar to this presentation in the past require multiple admission to the hospital. Patient stated that he is compliant with his bronchodilator and home medicine. Related Data Home Medications Medication Instructions Recorded Confirmed Combivent Respimat 1 puff INHALATION QID 06/09/20 06/09/20 albuterol sulfate 1 amp INHALATION Q6H PRN 06/09/20 06/09/20 aspirin 1 tab PO DAILY 06/09/20 06/09/20 atorvastatin 1 tab PO BEDTIME 06/09/20 06/09/20 buprenorphine-naloxone 2 strip SUBLINGUAL DAILY 06/09/20 06/09/20 carvedilol 1 tab PO BID 06/09/20 06/09/20 clonazepam 1 tab PO DAILY PRN 06/09/20 06/09/20 clopidogrel 1 tab PO DAILY 06/09/20 06/09/20 folic acid 1 tab PO DAILY 06/09/20 06/09/20 gabapentin 1 tab PO BID 06/09/20 06/09/20 hydralazine 2 tab PO TID 06/09/20 06/09/20 isosorbide mononitrate 1 tab PO QAM 06/09/20 06/09/20 losartan 1 tab PO DAILY 06/09/20 06/09/20 nifedipine 1 tab PO DAILY 06/09/20 06/09/20 pantoprazole 1 tab PO BID 06/09/20 06/09/20 trazodone 1 tab PO BEDTIME 06/09/20 06/09/20 zolpidem 1 tab PO BEDTIME PRN 06/09/20 06/09/20 nicotine 1 patch TOPICAL DAILY 06/20/20 Allergies Allergy/AdvReac Type Severity Reaction Status Date / Time KERI Inhibitors Allergy Wheezing Verified 06/09/20 17:52 HAIR DYE Allergy Unknown HIVES Uncoded 11/14/19 15:39 Review of Systems Review of Systems: All other systems are reviewed and are negative Constitutional: Reports as per HPI and Reports no additional constitutional complaints Eyes: Reports as per HPI and Reports no additional eye complaints Reports system reviewed and no additional complaints, except as documented Cardiovascular: Reports as per HPI and Reports no additional cardiovascular complaints Respiratory: Reports as per HPI and Reports no additional respiratory complaints Gastrointestinal: Reports as per HPI and Reports no additional gastrointestinal complaints Genitourinary: Reports no additional female genitourinary complaints Musculoskeletal: Reports no additional musculoskeletal complaints Skin/Breast: Reports system reviewed and no additional complaints, except as docu Psychiatric: Reports no additional psychiatric complaints Endocrine: Reports no additional endocrine complaints Hematologic/Lymphatic: Reports no additional hematologic/lymphatic complaints Allergic/Immunologic: Reports no additional allergic/immunologic complaints Reports system reviewed and no additional complaints, except as documented and Reports Abnormal speech present [facility] Past Medical History Medical History Alcohol abuse Chronic hypercapnic respiratory failure Chronic respiratory failure with hypoxia and hypercapnia Congestive heart failure COPD (chronic obstructive pulmonary disease) COPD exacerbation Impetigo Social History Social History Household Members: None Housing: Apartment Alcohol intake: former Smoking Status: Current some day smoker Packs Per Day: 1 Cigarettes Per Day: 20.0 Years Smoked: 30 Use of substances other than those prescribed or required for medical reasons: No Substance Use Type: Marijuana Advance Directives: No Advance Directives Information Provided: No service: No Current occupational status: disabled Physical Exam Vital Signs: Vital Signs: Last Vital Signs Temp 98.5 F 06/20/20 11:47 Pulse 72 06/20/20 13:57 Resp 20 06/20/20 13:57 BP 116/64 06/20/20 13:57 Pulse Ox 95 06/20/20 13:57 Oxygen Flow Rate 3 06/20/20 11:47 Body Mass Index 24.9 Vital signs have been reviewed as appeared to be correct. Blood pressure normal. Heart rate normal. Respiration rate normal. Temperature normal. Oxygen saturation normal. Appearance: Alert. Oriented X3. No acute distress. Head: Normal external exam. Normocephalic. Atraumatic. No De Los Santos signs noted. No raccoon eyes noted Eyes: PERRLA. EOMI. Conjunctiva and sclera normal. Eyelids normal. ENT: TM's Normal. Pharynx normal. Uvula midline. Moist mucous membranes. No trismus noted. No drooling noted. No muffled voice noted. Neck: Normal inspection. Neck supple. FROM. No adenopathy. Thyroid Normal. No meningeal signs. No neck mass noted. CVS: Normal heart rate and rhythm. Heart sound normal. No murmurs noted. Pulses normal throughout. Respiratory: No respiratory distress. Painless inspiration. Breath sounds normal. Mild diffuse expiratory wheezes, no rales, or rhonchi noted. Chest nontender. No accessory muscle usage noted or decreased air movement noted. Abdomen: Soft and nontender. Bowel sounds normal in all 4 quadrants. No distention noted. No organomegaly noted. No visible injury noted. Back: No CVA tenderness. Full range of motion noted. Skin: Skin warm and dry. Normal skin color. Normal skin turgor. No rashes/lesions/lacerations noted. Extremities: No lower extremity edema. Extremities exhibit normal range of motion. Extremities nontender. Neuro: Oriented X 3. No motor deficit. No sensory deficit. Reflexes normal. Course Course Course Narrative: Assessment and plan. 60-year-old male history of COPD/active smoker/chronic hypercarbic respiratory failure. Presented with difficulty breathing patient showed some hypoxia despite supplemental oxygen, chest x-ray is unremarkable, ABG showed severe hypercarbia with normal pH and increase serum bicarb. Patient still keeping his airway and mental status at baseline. Will start the patient on BiPAP machine. Patient use CPAP at home. Reevaluation(s) Reevaluation #1: Patient is on BiPAP machine, still awake and alert and oriented x4, will consider antibiotic, will admit to ICU the case was discussed with Dr. Panchal. Time: 14:10 MDM - SOB/Dyspnea Lab Data Attestation: I reviewed the patient's lab results. Result diagrams: 06/20/20 12:10 06/20/20 12:55 Labs: Lab Results 06/20/20 06/20/20 06/20/20 Range/Units 12:09 12:10 12:11 WBC 12.1 H (4.8-10.8) X10*3/uL RBC 3.99 L D (4.60-5.80) X10*6/uL Hgb 12.2 L D (14.0-18.0) g/dl Hct 41.4 L D (42-52) % MCV 103.8 H (80-98) fL MCH 30.6 (27.0-33.0) pg MCHC 29.5 L (31.0-36.0) g/dl RDW 14.6 (11.0-16.0) % Plt Count 255 (160-400) X10*3/uL MPV 9.5 (9.4-12.4) fL Immature Gran % (Auto) 0.4 (0.0-0.4) % Neut % (Auto) 73.3 H (45-73) % Lymph % (Auto) 12.4 L (20-40) % Geary % (Auto) 11.5 H (2-11) % Eos % (Auto) 2.2 (0-4) % Baso % (Auto) 0.2 (0-2) % Lymph # (Auto) 1.5 (1.2-4.9) X10*3/uL Geary # (Auto) 1.4 H (0.1-1.2) X10*3/uL Eos # (Auto) 0.3 (0.0-0.4) X10*3/uL Baso # (Auto) 0.0 (0.0-0.2) X10*3/uL Abs Immat Gran (auto) 0.05 H (0.00-0.03) X10*3/uL Absolute Neuts (auto) 8.9 H (2.0-8.3) X10*3/uL Absolute Nucleated RBC 0.000 (0.0-0.012) X10*3/uL Nucleated RBC % (auto) 0.0 (0.0-0.2) /100WBC O2 Saturation % ABG pH at Pt Temp (7.35-7.45) ABG pH (Temp Correct) (7.35-7.45) ABG pCO2 at Pt Temp (32-45) mmHg ABG pCO2 (Temp Corrct (32-45) mmHg ABG pO2 at Pt Temp (83-108) mmHg ABG pO2 (Temp Correct (83-108) ABG HCO3 (22-26) mmol/L ABG Base Excess (Actual) mmol/L Sodium (135-145) mmol/L Potassium (3.3-5.1) mmol/L Chloride (96-108) mmol/L Carbon Dioxide (22-29) mmol/L Anion Gap (12-20) BUN (9-16) mg/dL Creatinine (0.5-1.4) mg/dL Estim Creat Clear Calc Estimated GFR Random Glucose (60-115) mg/dL Lactic Acid (0.5-2.0) mmol/L Calcium (8.4-10.2) mg/dL Total Bilirubin (0.0-1.0) mg/dL Direct Bilirubin (0.0-0.5) mg/dL AST (5-37) U/L ALT (0-40) U/L Alkaline Phosphatase (39-117) U/L Troponin I High Sens 23.5 (<3.5-35.0) ng/L B-Natriuretic Peptide 122 H (<100) pg/mL Total Protein (6.5-8.0) g/dL Albumin (3.5-5.0) g/dL Lipase (8-78) U/L COVID-19 (PR[facility]EN) Negative (Negative) COVID-19 Clin Com See Note 06/20/20 06/20/20 06/20/20 Range/Units 12:19 12:55 13:02 WBC (4.8-10.8) X10*3/uL RBC (4.60-5.80) X10*6/uL Hgb (14.0-18.0) g/dl Hct (42-52) % MCV (80-98) fL MCH (27.0-33.0) pg MCHC (31.0-36.0) g/dl RDW (11.0-16.0) % Plt Count (160-400) X10*3/uL MPV (9.4-12.4) fL Immature Gran % (Auto) (0.0-0.4) % Neut % (Auto) (45-73) % Lymph % (Auto) (20-40) % Geary % (Auto) (2-11) % Eos % (Auto) (0-4) % Baso % (Auto) (0-2) % Lymph # (Auto) (1.2-4.9) X10*3/uL Geary # (Auto) (0.1-1.2) X10*3/uL Eos # (Auto) (0.0-0.4) X10*3/uL Baso # (Auto) (0.0-0.2) X10*3/uL Abs Immat Gran (auto) (0.00-0.03) X10*3/uL Absolute Neuts (auto) (2.0-8.3) X10*3/uL Absolute Nucleated RBC (0.0-0.012) X10*3/uL Nucleated RBC % (auto) (0.0-0.2) /100WBC O2 Saturation 93.0 % ABG pH at Pt Temp 7.36 (7.35-7.45) ABG pH (Temp Correct) 7.36 (7.35-7.45) ABG pCO2 at Pt Temp 118 H* (32-45) mmHg ABG pCO2 (Temp Corrct 117 H* (32-45) mmHg ABG pO2 at Pt Temp 62 L (83-108) mmHg ABG pO2 (Temp Correct 62 L (83-108) ABG HCO3 67 H (22-26) mmol/L ABG Base Excess (Actual) 33.7 mmol/L Sodium 140 (135-145) mmol/L Potassium 4.0 (3.3-5.1) mmol/L Chloride 84 L (96-108) mmol/L Carbon Dioxide 48 H* D (22-29) mmol/L Anion Gap 12 (12-20) BUN 20 H D (9-16) mg/dL Creatinine 1.06 (0.5-1.4) mg/dL Estim Creat Clear Calc 73.4 Estimated GFR > 60 Random Glucose 111 (60-115) mg/dL Lactic Acid 0.6 (0.5-2.0) mmol/L Calcium 9.1 (8.4-10.2) mg/dL Total Bilirubin 0.5 (0.0-1.0) mg/dL Direct Bilirubin < 0.2 (0.0-0.5) mg/dL AST 23 D (5-37) U/L ALT 18 (0-40) U/L Alkaline Phosphatase 52 (39-117) U/L Troponin I High Sens (<3.5-35.0) ng/L B-Natriuretic Peptide (<100) pg/mL Total Protein 6.1 L (6.5-8.0) g/dL Albumin 4.0 (3.5-5.0) g/dL Lipase 13 (8-78) U/L COVID-19 ([facility]) (Negative) COVID-19 Clin Com Imaging Data Chest x-ray: Radiologist's impression: No acute pathology. ECG Data Interpretation: Normal sinus rhythm at 63 beats per minutes, normal intervals, normal axis deviation. No ST-T changes. Critical Care Time Critical Care Time Total Critical Care Time: 60 Attestation: I spent 60 minutes providing critical care service to the patient, this including time spent at the bedside to evaluate the patient, reassess the patient, monitoring vital signs, review labs, and radiographic studies, counseling the patient/family, discussing the case with consultants, disposition the patient. Discharge Plan Discharge Clinical Impression: Respiratory failure with hypercapnia, Acute exacerbation of chronic obstructive pulmonary disease Patient Disposition: Home, Self-Care Prescriptions: No Action losartan 50 mg tablet 1 tab PO DAILY RF: 0 carvedilol 25 mg tablet 1 tab PO BID RF: 0 gabapentin 600 mg tablet 1 tab PO BID RF: 0 albuterol sulfate 2.5 mg /3 mL (0.083 %) solution for nebulization 1 amp inhalation Q6H PRN (Reason: Wheezing) RF: 0 trazodone 50 mg tablet 1 tab PO BEDTIME RF: 0 clonazepam 0.5 mg tablet 1 tab PO DAILY PRN (Reason: Anxiety) RF: 0 aspirin 81 mg tablet,delayed release (DR/EC) 1 tab PO DAILY RF: 0 pantoprazole 20 mg tablet,delayed release (DR/EC) 1 tab PO BID RF: 0 isosorbide mononitrate 60 mg tablet extended release 24 hr 1 tab PO QAM RF: 0 nifedipine 90 mg tablet extended release 24hr 1 tab PO DAILY RF: 0 hydralazine 50 mg tablet 2 tab PO TID RF: 0 zolpidem 5 mg tablet 1 tab PO BEDTIME PRN (Reason: Insomnia) RF: 0 buprenorphine-naloxone 8-2 mg film 2 strip sublingual DAILY RF: 0 Combivent Respimat 20-100 mcg/actuation mist 1 puff inhalation QID RF: 0 atorvastatin 80 mg tablet 1 tab PO BEDTIME RF: 0 clopidogrel 75 mg tablet 1 tab PO DAILY RF: 0 folic acid 1 mg tablet 1 tab PO DAILY RF: 0 nicotine 21 mg/24 hr patch 24 hour 1 patch topical DAILY RF: 0
[2020-06-20] MEDS: Albuterol/Iprat 2.5/0.5MG 3 ML AMPUL.NEB INHALE ×2 (12:12→20:04)
[2020-06-20] MEDS: Albuterol Sulfate (0.083%) 2.5 MG/3 ML VIAL.NEB 5 MG INHALE (12:12)
[2020-06-20 12:18] LABS: MANUAL DIFF FLAG NO
[2020-06-20 12:19] LABS: Basophils Percent Auto 0.2 % (0-2); Eosinophils Absolute Auto 0.3 X10*3/uL (0.0-0.4); Eosinophils Percent Auto 2.2 % (0-4); Hematocrit 41.4 % (42-52); Hemoglobin 12.2 g/dl (14.0-18.0); Imm Gran Abs Auto 0.05 X10*3/uL (0.00-0.03); Imm Gran Pct Auto 0.4 % (0.0-0.4); Lymphocytes Absolute Auto 1.5 X10*3/uL (1.2-4.9); Lymphocytes Percent Auto 12.4 % (20-40); Mean Corpuscular HGB Conc 29.5 g/dl (31.0-36.0); Mean Corpuscular Hemoglobin 30.6 pg (27.0-33.0); Mean Corpuscular Volume 103.8 fL (80-98); Mean Platelet Volume 9.5 fL (9.4-12.4); Monocytes Absolute Auto 1.4 X10*3/uL (0.1-1.2); Monocytes Percent Auto 11.5 % (2-11); Neutrophils Absolute Auto 8.9 X10*3/uL (2.0-8.3); Neutrophils Percent Auto 73.3 % (45-73); Platelet Count 255 X10*3/uL (160-400); Red Blood Count 3.99 X10*6/uL (4.60-5.80); Red Cell Distribution Width 14.6 % (11.0-16.0); White Blood Count 12.1 X10*3/uL (4.8-10.8)
--- NOTE | 2020-06-20 12:25 | PC.NURSE ---
Pt alert and oriented, skin ashen. Falls asleep easily but awakes with verbal stimuli. Reports increased difficulty breathing, no relief from Prednisone and Abx given on last visit to ER. Pt mildly SOB with rest, prolonged expiratory phase, RR 24-30, denies cough, LS Rhonchi in upper and lower lobes. ETCO2 50 when pt falls asleep. NSR on monitor. pt reports on home O2 3L
[2020-06-20 12:34] LABS: COVID-19 Test Negative (Negative)
[2020-06-20 12:50] LABS: B Type Natriuretic Peptide 122 pg/mL (<100); Troponin-I High Sensitivity 23.5 ng/L (<3.5-35.0)
--- NOTE | 2020-06-20 13:02 | PC.NURSE ---
Pt difficult IV stick, awaiting peripheral line form another RN u/S guided. Bld obtained/sent. RT to bedside for Duoneb and ABGs. Pt continues to fall asleep easily, sat at times noted in mid 80s, titrating 02 3-5lpm as needed.
[2020-06-20 13:05] LABS: Lactic Acid 0.6 mmol/L (0.5-2.0)
[2020-06-20 13:12] LABS: ABG Base Excess 33.7 mmol/L; ABG HCO3 67 mmol/L (22-26); ABG pCO2 118 mmHg (32-45); ABG pCO2 TC 117 mmHg (32-45); ABG pH 7.36 (7.35-7.45); ABG pH TC 7.36 (7.35-7.45); ABG pO2 62 mmHg (83-108); ABG pO2 TC 62 (83-108)
[2020-06-20 13:12] LABS: ABG Refer to POC result
[2020-06-20 13:46] LABS: Alanine Aminotransferase 18 U/L (0-40); Alkaline Phosphatase 52 U/L (39-117); Anion Gap 12 (12-20); Aspartate Amino Transferase 23 U/L (5-37); Bilirubin Direct < 0.2 mg/dL (0.0-0.5); Bilirubin Total 0.5 mg/dL (0.0-1.0); Blood Urea Nitrogen 20 mg/dL (9-16); Calcium 9.1 mg/dL (8.4-10.2); Carbon Dioxide 48 mmol/L (22-29); Chloride 84 mmol/L (96-108); Creatinine Clr Calc Pharmacy 73.4; Estimated Glomerular Filt Rate > 60; Glucose Random 111 mg/dL (60-115); Lipase 13 U/L (8-78); Sodium 140 mmol/L (135-145); Total Protein 6.1 g/dL (6.5-8.0)
[2020-06-20] MEDS: methylPREDNISolone Sod Succ 125 MG/2 ML VIAL IVPUSH (13:51)
[2020-06-20] MEDS: Magnesium Sulfate/H2O 2 GM/50 ML PIGGYBACK IV (13:55)
--- NOTE | 2020-06-20 13:58 | PC.NURSE ---
Pt on Bipap setting 18/8/45%/12, sat 95% at this time, eyes closed. IV line start u/s guided, medicated as charted.
[2020-06-20] MEDS: cefTRIAXone sodium 1 GM in 0.9 % Sodium Chloride 50 ML IV (14:32)
[2020-06-20] MEDS: Enoxaparin Sodium 40 MG/0.4 ML SYRINGE SUBCUT (14:32)
--- NOTE | 2020-06-20 15:35 | PC.NURSE ---
Report given to WILL bowen. Plan to bring patient up at [id number]
[2020-06-20] MEDS: acetaZOLAMIDE sodium 500 MG VIAL 250 MG IVPUSH (15:44)
[2020-06-20 16:37] LABS: Glucose Urine UA NEG (NEG); Leukocyte Esterase Urine NEG (NEG); Nitrite Urine NEG (NEG); PH 6.5 (5.0-8.0); Urine Blood NEG (NEG); Urine Ketones NEG (NEG); Urine Protein NEG (NEG-TRACE)
[2020-06-20 16:38] LABS: Color Urine YELLOW
[2020-06-20 16:39] LABS: Appearance Urine CLEAR
[2020-06-20 16:56] LABS: Amphetamine Screen Urine Not Detected (Not Detect); Barbiturates, Urine Not Detected (Not Detect); Benzodiazepines Screen Urine Not Detected (Not Detect); Cannabinoid Screen Urine Not Detected (Not Detect); Cocaine Screen Urine Not Detected (Not Detect); Opiate Screen Urine Not Detected (Not Detect); Phencyclidine Screen Urine Not Detected (Not Detect)
[2020-06-20] MEDS: Buprenorphine/Naloxone 8/2 mg FILM 2 FILM SUBLINGUAL (18:07)
--- NOTE | 2020-06-20 19:10 | P.HPCC_ITS ---
History of Present Illness Date of Service: 06/20/20 Chief Complaint: Acute hypoxia and hypercapnia 60-year old gentleman with underlying history of supplemental oxygen dependent 2-3 L COPD, multiple admissions for acute hypercapnic respiratory failure, also hypertension, opioid dependence on Suboxone, JUANY poorly compliant with CPAP admitted on 06/20/2020 with 1-2 day history of worsening dyspnea. On ER evaluat ion patient was noted to be in acute exacerbation of underlying COPD with acute on chronic hypoxic and hypercapnic respiratory failure with respiratory acidosis requiring BiPAP support. Patient has been started on systemic glucocorticoids and nebulized bronchodilators and admitted to the intensive care unit. Review of Systems Constitutional: Constitutional: Denies daytime sleepiness, Denies excessive sweating, Denies fatigue, Denies fever(s), Denies lethargy, Denies malaise, Denies night sweats, Denies snoring and Denies weight loss Eyes: Eyes: Denies blurry vision and Denies itchy eyes ENT: Denies nasal congestion, Denies post nasal drip, Denies sinus pain, Denies sinus pressure and Denies other ( Thrush) Cardiovascular: Cardiovascular: Denies chest pain, Denies pedal edema, Reports dyspnea, Denies orthopnea and Denies paroxysmal nocturnal dyspnea Respiratory: Respiratory: Denies cough, Denies hemoptysis, Denies excessive phlegm production, Reports dyspnea, Denies snoring and Reports wheezing Gastrointestinal: Gastrointestinal: Denies abdominal pain and Denies heartburn Musculoskeletal: Musculoskeletal: Denies myalgias, Denies arthralgias and Denies joint swelling Integumentary/Breasts: Skin/Breast: Denies rash Neurologic: Denies memory loss and Denies seizure-like activity Psychiatric: Psychiatric: Denies abnormal sleep pattern, Denies anxiety and Denies memory loss Endocrine: Endocrine: Denies excessive sweating, Denies fatigue and Denies heat intolerance Hematologic/Lymphatic: Hematologic/Lymphatic: Denies easy bruising Allergic/Immunologic: Allergic/Immunologic: Denies itchy eyes, Denies seasonal rhinorrhea and Reports wheezing PMFSH Past Medical History Medical History (Updated 06/21/20 @ 11:08 by Johnson Panchal MD) Alcohol abuse Chronic hypercapnic respiratory failure Chronic respiratory failure with hypoxia and hypercapnia Congestive heart failure COPD (chronic obstructive pulmonary disease) COPD exacerbation Impetigo Social History Social History Household Members: None Housing: House Do you presently have visiting nurse or other home services: Yes Alcohol intake: former Smoking Status: Current some day smoker Tobacco Type: Cigarette Packs Per Day: 1 Cigarettes Per Day: 4 Years Smoked: 30 Smoked in Last 30 Days: Yes Patient Interested in Nicotine Replacement: Yes Patient Given Instructions on How to Stop Smoking: No Second Hand Smoke Exposure: Yes Use of substances other than those prescribed or required for medical reasons: No Substance Use Type: Marijuana Currently Displaying Signs/Symptoms of Drug Intoxication Withdrawal: No Any prior treatment program specific to substance use: Yes (on suboxone) Have you been hit, kicked, punched, or otherwise hurt by someone within the past year? If so, by whom?: No Do you feel safe in your current relationship?: Yes Is there a partner from a previous relationship who is making you feel unsafe now?: No Are you made to feel afraid or neglected: No Spiritual Healthcare Practices: none Hinduism Healthcare Practices: none Cultural Healthcare Practices: none Advance Directives: No Advance Directives Information Provided: No Do you have thoughts of harming others: None Do you have a plan to hurt others: No Plan Recently lost weight without trying: No service: No Current occupational status: disabled Meds Allergies Allergy/AdvReac Type Severity Reaction Status Date / Time KERI Inhibitors Allergy Wheezing Verified 06/09/20 17:52 HAIR DYE Allergy Unknown HIVES Uncoded 11/14/19 15:39 Active Medications: Current Medications Generic Name Dose Route Start Last Admin Trade Name Freq PRN Reason Stop Dose Admin Acetazolamide 250 mg 06/20/20 14:00 06/20/20 15:44 Acetazolamide Sodium 500 Mg Vial IVPUSH 250 mg Q12H ALEXUS Administration Albuterol/Ipratropium 3 ml 06/20/20 18:00 Albuterol/Iprat 2.5/0.5mg 3 Ml Ampul.Neb INHALE RQ6H ALEXUS Buprenorphine/Naloxone 2 film 06/20/20 17:45 06/20/20 18:07 Buprenorphine/Naloxone 8/2 Mg Film SUBLINGUAL 2 film DAILY ALEXUS Administration Enoxaparin Sodium 40 mg 06/20/20 14:00 06/20/20 14:32 Enoxaparin Sodium 40 Mg/0.4 Ml Syringe SUBCUT 40 mg Q24H ALEXUS Administration Methylprednisolone Sodium Succinate 40 mg 06/21/20 09:00 Methylprednisolone Sod Succ 40 Mg/Ml Vial IVPUSH DAILY ALEXUS Ondansetron HCl 4 mg 06/20/20 13:58 Ondansetron Hcl 4 Mg/2 Ml Vial IVPUSH Q8H PRN Nausea Home Medications Medication Instructions Recorded Confirmed Last Taken Type Combivent Respimat 1 puff INHALATION QID 06/09/20 06/20/20 Unknown History albuterol sulfate 1 amp INHALATION Q6H PRN 06/09/20 06/20/20 Unknown History aspirin 1 tab PO DAILY 06/09/20 06/20/20 Unknown History atorvastatin 1 tab PO BEDTIME 06/09/20 06/20/20 Unknown History buprenorphine-naloxone 2 strip SUBLINGUAL DAILY 06/09/20 06/20/20 Unknown History carvedilol 1 tab PO BID 06/09/20 06/20/20 Unknown History clonazepam 1 tab PO DAILY PRN 06/09/20 06/20/20 Unknown History clopidogrel 1 tab PO DAILY 06/09/20 06/20/20 Unknown History folic acid 1 tab PO DAILY 06/09/20 06/20/20 Unknown History gabapentin 1 tab PO BID 06/09/20 06/20/20 Unknown History hydralazine 2 tab PO TID 06/09/20 06/20/20 Unknown History isosorbide mononitrate 1 tab PO QAM 06/09/20 06/20/20 Unknown History losartan 1 tab PO DAILY 06/09/20 06/20/20 Unknown History nifedipine 1 tab PO DAILY 06/09/20 06/20/20 Unknown History pantoprazole 1 tab PO BID 06/09/20 06/20/20 Unknown History trazodone 1 tab PO BEDTIME 06/09/20 06/20/20 Unknown History zolpidem 1 tab PO BEDTIME PRN 06/09/20 06/20/20 Unknown History nicotine 1 patch TOPICAL DAILY 06/20/20 06/20/20 Unknown History Physical Exam Vital Signs: Vital Signs: Last Vital Signs Temp 97.7 F 06/20/20 17:00 Pulse 70 06/20/20 18:00 Resp 16 06/20/20 18:00 BP 158/68 H 06/20/20 18:00 Pulse Ox 96 06/20/20 18:00 Oxygen Flow Rate 3 06/20/20 11:47 Body Mass Index 22.0 Const: General: no acute distress, alert and awake Eyes: Sclerae: sclerae normal EOM: EOMs intact bilaterally Neck: Neck: Yes no lymphadenopathy, Yes trachea midline and Yes supple Resp: Effort & Inspection: normal respiratory effort Auscultation: wheezes expiratory wheezes (Bilateral) Cardio: Rate: regular rate Rhythm: regular rhythm Heart sounds: no gallops, no murmurs and no rubs GI: Palpation (GI): Soft to palpation and Other GI palpation findings present ( Nontender) Auscultation: normal bowel sounds Extrem: General: No clubbing, No cyanosis and Yes pedal edema (Trace bilateral) Results Labs CBC and Chem 7: 06/21/20 04:44 06/21/20 04:44 Labs: Laboratory Results - last 24 hr 06/20/20 06/20/20 06/20/20 12:09 12:10 12:11 MCV 103.8 H MCH 30.6 MCHC 29.5 L RDW 14.6 Plt Count 255 MPV 9.5 Immature Gran % (Auto) 0.4 Neut % (Auto) 73.3 H Lymph % (Auto) 12.4 L [place] % (Auto) 11.5 H Eos % (Auto) 2.2 Baso % (Auto) 0.2 Lymph # (Auto) 1.5 [place] # (Auto) 1.4 H Eos # (Auto) 0.3 Baso # (Auto) 0.0 Abs Immat Gran (auto) 0.05 H Absolute Neuts (auto) 8.9 H Absolute Nucleated RBC 0.000 Nucleated RBC % (auto) 0.0 O2 Saturation ABG pH at Pt Temp ABG pH (Temp Correct) ABG pCO2 at Pt Temp ABG pCO2 (Temp Corrct ABG pO2 at Pt Temp ABG pO2 (Temp Correct ABG HCO3 ABG Base Excess (Actual) Anion Gap Estim Creat Clear Calc Estimated GFR Random Glucose Lactic Acid Calcium Total Bilirubin Direct Bilirubin AST ALT Alkaline Phosphatase Troponin I High Sens 23.5 B-Natriuretic Peptide 122 H Total Protein Albumin Lipase Urine Color Urine Appearance Urine pH Ur Specific [place] Urine Protein Urine Glucose (UA) Urine Ketones Urine Blood Urine Nitrite Ur Leukocyte Esterase Urine Opiates Screen Ur Barbiturates Screen Ur Phencyclidine Scrn Ur Amphetamines Screen U Benzodiazepines Scrn Urine Cocaine Screen U Marijuana (THC) Screen COVID-19 (PRAVEEN) Negative COVID-19 Clin Com See Note 06/20/20 06/20/20 06/20/20 12:19 12:55 13:02 MCV MCH MCHC RDW Plt Count MPV Immature Gran % (Auto) Neut % (Auto) Lymph % (Auto) [place] % (Auto) Eos % (Auto) Baso % (Auto) Lymph # (Auto) [place] # (Auto) Eos # (Auto) Baso # (Auto) Abs Immat Gran (auto) Absolute Neuts (auto) Absolute Nucleated RBC Nucleated RBC % (auto) O2 Saturation 93.0 ABG pH at Pt Temp 7.36 ABG pH (Temp Correct) 7.36 ABG pCO2 at Pt Temp 118 H* ABG pCO2 (Temp Corrct 117 H* ABG pO2 at Pt Temp 62 L ABG pO2 (Temp Correct 62 L ABG HCO3 67 H ABG Base Excess (Actual) 33.7 Anion Gap 12 Estim Creat Clear Calc 73.4 Estimated GFR > 60 Random Glucose 111 Lactic Acid 0.6 Calcium 9.1 Total Bilirubin 0.5 Direct Bilirubin < 0.2 AST 23 D ALT 18 Alkaline Phosphatase 52 Troponin I High Sens B-Natriuretic Peptide Total Protein 6.1 L Albumin 4.0 Lipase 13 Urine Color Urine Appearance Urine pH Ur Specific [place] Urine Protein Urine Glucose (UA) Urine Ketones Urine Blood Urine Nitrite Ur Leukocyte Esterase Urine Opiates Screen Ur Barbiturates Screen Ur Phencyclidine Scrn Ur Amphetamines Screen U Benzodiazepines Scrn Urine Cocaine Screen U Marijuana (THC) Screen COVID-19 (PRAVEEN) COVID-19 [employer] Com 06/20/20 06/20/20 16:29 16:29 MCV MCH MCHC RDW Plt Count MPV Immature Gran % (Auto) Neut % (Auto) Lymph % (Auto) [place] % (Auto) Eos % (Auto) Baso % (Auto) Lymph # (Auto) [place] # (Auto) Eos # (Auto) Baso # (Auto) Abs Immat Gran (auto) Absolute Neuts (auto) Absolute Nucleated RBC Nucleated RBC % (auto) O2 Saturation ABG pH at Pt Temp ABG pH (Temp Correct) ABG pCO2 at Pt Temp ABG pCO2 (Temp Corrct ABG pO2 at Pt Temp ABG pO2 (Temp Correct ABG HCO3 ABG Base Excess (Actual) Anion Gap Estim Creat Clear Calc Estimated GFR Random Glucose Lactic Acid Calcium Total Bilirubin Direct Bilirubin AST ALT Alkaline Phosphatase Troponin I High Sens B-Natriuretic Peptide Total Protein Albumin Lipase Urine Color YELLOW Urine Appearance CLEAR Urine pH 6.5 Ur Specific [place] 1.020 Urine Protein NEG Urine Glucose (UA) NEG Urine Ketones NEG Urine Blood NEG Urine Nitrite NEG Ur Leukocyte Esterase NEG Urine Opiates Screen Not Detected Ur Barbiturates Screen Not Detected Ur Phencyclidine Scrn Not Detected Ur Amphetamines Screen Not Detected U Benzodiazepines Scrn Not Detected Urine Cocaine Screen Not Detected U Marijuana (THC) Screen Not Detected COVID-19 (PRAVEEN) COVID-19 Clin Com Imaging Radiologist's Impressions: Impressions Chest X-Ray 06/20/20 11:57 IMPRESSION: No acute cardiopulmonary process. Assessment and Plan (1) Acute on chronic respiratory failure with hypoxia and hypercapnia: Status: Acute Assessment: 60-year-old gentleman with underlying severe supplemental oxygen dependent COPD, JUANY on CPAP, multiple admissions for acute on chronic hypercapnic respiratory failure admitted with acute on chronic hypoxic hypercapn ic respiratory failure secondary to COPD exacerbation requiring BiPAP support. Plan: Neuro: No acute issues. Cardiac: Underlying history of hypertension and coronary artery disease, continue on losartan, Imdur, and Plavix. Pulmonary: Acute on chronic hypoxic and hypercapnic respiratory failure secondary to COPD exacerbation initially requiring BiPAP support. Patient has been titrated off BiPAP support. He does have underlying significant CO2 retention. Maintain O2 saturation of 88-92%, not high 93%. Continue with nebulized bronchodilators and systemic glucocorticoids. Continue with CPAP at night. Renal: No acute issues. Endo: No acute issues. GI: No acute issues. ID: No acute issues Heme/Onc: No acute issues. Psych: No acute issues. Miscellaneous: No acute issues. Prophylaxis: Lovenox Diet: Regular Critical care time spent: 45 minutes (2) COPD exacerbation: Status: Inactive (3) Alcohol abuse: Status: Inactive Critical Care Time 45 minutes
[2020-06-20] MEDS: PHENobarbitaL sodium 130 MG/ML VIAL 260 MG IM (21:23)
[2020-06-21] VITALS (29 sets, daily range): BP systolic 125–199; BP diastolic 50–81; PULSE 55–545; RESP 12–24; TEMP 36.2–37.2; O2SAT 89–98; BMI 23.1
[2020-06-21] MEDS: PHENobarbitaL sodium 130 MG/ML VIAL 197 MG IM ×2 (00:02→02:40)
[2020-06-21] MEDS: Albuterol/Iprat 2.5/0.5MG 3 ML AMPUL.NEB INHALE ×4 (00:23→20:12)
[2020-06-21 00:40] LABS: VBG Base Excess 29.3 mmol/L; VBG HCO3 59 mmol/L (22-26); VBG pCO2 87 mmHg; VBG pH 7.44 (7.32-7.43); VBG pO2 60 mmHg
[2020-06-21 01:34] LABS: Venous Blood Gas Refer to POC result
[2020-06-21] MEDS: acetaZOLAMIDE sodium 500 MG VIAL 250 MG IVPUSH ×2 (02:40→13:40)
[2020-06-21 04:50] LABS: VBG Base Excess 30.8 mmol/L; VBG HCO3 61 mmol/L (22-26); VBG pCO2 92 mmHg; VBG pH 7.43 (7.32-7.43); VBG pO2 45 mmHg
[2020-06-21 04:58] LABS: Hematocrit 35.9 % (42-52); Hemoglobin 10.9 g/dl (14.0-18.0); Imm Gran Abs Auto 0.06 X10*3/uL (0.00-0.03); Imm Gran Pct Auto 0.8 % (0.0-0.4); Lymphocytes Absolute Auto 0.5 X10*3/uL (1.2-4.9); Lymphocytes Percent Auto 6.2 % (20-40); MANUAL DIFF FLAG SCAN; Mean Corpuscular HGB Conc 30.4 g/dl (31.0-36.0); Mean Corpuscular Hemoglobin 30.7 pg (27.0-33.0); Mean Corpuscular Volume 101.1 fL (80-98); Mean Platelet Volume 9.4 fL (9.4-12.4); Monocytes Absolute Auto 0.4 X10*3/uL (0.1-1.2); Monocytes Percent Auto 6.1 % (2-11); Neutrophils Absolute Auto 6.3 X10*3/uL (2.0-8.3); Neutrophils Percent Auto 86.9 % (45-73); Platelet Count 220 X10*3/uL (160-400); Red Blood Count 3.55 X10*6/uL (4.60-5.80); Red Cell Distribution Width 14.3 % (11.0-16.0); SCAN SMEAR FLAG 1; White Blood Count 7.2 X10*3/uL (4.8-10.8)
[2020-06-21 05:23] LABS: Alanine Aminotransferase 14 U/L (0-40); Albumin Level 3.6 g/dL (3.5-5.0); Alkaline Phosphatase 53 U/L (39-117); Anion Gap 13 (12-20); Aspartate Amino Transferase 20 U/L (5-37); Bilirubin Total 0.3 mg/dL (0.0-1.0); Blood Urea Nitrogen 26 mg/dL (9-16); Calcium 8.7 mg/dL (8.4-10.2); Carbon Dioxide 46 mmol/L (22-29); Chloride 86 mmol/L (96-108); Creatinine Clr Calc Pharmacy 57.6; Estimated Glomerular Filt Rate 57; Glucose Random 121 mg/dL (60-115); Magnesium 2.6 mg/dL (1.6-2.6); Phosphorus 5.2 mg/dL (2.7-4.5); Potassium 3.8 mmol/L (3.3-5.1); Sodium 141 mmol/L (135-145); Total Protein 5.4 g/dL (6.5-8.0)
[2020-06-21 05:31] LABS: SLIDE REVIEW VERIFIED
[2020-06-21 06:30] LABS: Venous Blood Gas Refer to POC result
--- NOTE | 2020-06-21 07:37 | PC.NURSE ---
pt awake, restless. Attempting to exit bed. RT to room to trial pt off BiPAP, pt 92% on 3L. He states he uses oxygen at home. Pt is oriented to self, not place, time or situation. Will continue to monitor for tolerance off BiPAP.
[2020-06-21] MEDS: methylPREDNISolone Sod Succ 40 MG/ML VIAL IVPUSH (09:22)
[2020-06-21] MEDS: Buprenorphine/Naloxone 8/2 mg FILM 2 FILM SUBLINGUAL (09:23)
[2020-06-21] MEDS: PHENobarbitaL 15 MG TABLET 45 MG PO ×2 (09:23→20:49)
[2020-06-21] MEDS: Isosorbide Mononitrate 60 MG TAB.ER.24H PO (10:10)
[2020-06-21] MEDS: Clopidogrel Bisulfate 75 MG TABLET PO (10:10)
[2020-06-21] MEDS: Losartan Potassium 50 MG TABLET PO (10:11)
--- NOTE | 2020-06-21 10:14 | PC.NURSE ---
pt is off BiPAP, has been tolerating well. Oxygen saturation 89-92 on 2L. He had been on 1L with saturations below 88%. Titrated oxygen to 2L.
[2020-06-21 10:29] LABS: ABG Refer to POC result
[2020-06-21 10:30] LABS: ABG Base Excess 29.5 mmol/L; ABG HCO3 58 mmol/L (22-26); ABG pCO2 78 mmHg (32-45); ABG pH 7.48 (7.35-7.45); ABG pO2 59 mmHg (83-108)
--- NOTE | 2020-06-21 11:13 | PM.CCPN ---
Subjective Subjective Date of Service: 06/21/20 Interval History: 60-year old gentleman with underlying history of supplemental oxygen dependent 2-3 L COPD, multiple admissions for acute hypercapnic respiratory failure, also hypertension, opioid dependence on Suboxone, JUANY poorly compliant with CPAP admitted on 06/20/2020 with 1-2 day history of worsening dyspnea. On ER evaluation patient was noted to be in acute exacerbation of underlying COPD with acute on chronic hypoxic and hypercapnic respiratory failure with respiratory acidosis requiring BiPAP support. Patient has been started on systemic glucocorticoids and nebulized bronchodilators and admitted to the intensive care unit. Titrated off BiPAP overnight. Overnight with alcohol withdrawal symptoms started on phenobarbital protocol. Physical Exam Vital Signs: Vital Signs: Last Vital Signs Temp 98.8 F 06/21/20 10:55 Pulse 66 06/21/20 10:55 Resp 20 06/21/20 10:55 BP 189/54 H 06/21/20 10:55 Pulse Ox 90 L 06/21/20 10:55 Oxygen Flow Rate 3 06/20/20 11:47 Body Mass Index 23.1 Const: General: no acute distress, alert and awake Eyes: Sclerae: sclerae normal EOM: EOMs intact bilaterally Neck: Neck: Yes no lymphadenopathy, Yes trachea midline and Yes supple Resp: Effort & Inspection: normal respiratory effort and no respiratory distress Auscultation: wheezes expiratory wheezes (Mild bilateral) Cardio: Rate: regular rate Rhythm: regular rhythm Heart sounds: no gallops, no murmurs and no rubs GI: Palpation (GI): Soft to palpation and Other GI palpation findings present ( Nontender) Auscultation: normal bowel sounds Extrem: General: Yes no pedal edema, No clubbing and No cyanosis Objective Data Labs CBC & Chem 7: 06/21/20 04:44 06/21/20 04:44 Labs: Laboratory Results - last 24 hr 06/20/20 06/20/20 06/20/20 12:09 12:10 12:11 WBC 12.1 H RBC 3.99 L D Hgb 12.2 L D Hct 41.4 L D MCV 103.8 H MCH 30.6 MCHC 29.5 L RDW 14.6 Plt Count 255 MPV 9.5 Immature Gran % (Auto) 0.4 Neut % (Auto) 73.3 H Lymph % (Auto) 12.4 L [place] % (Auto) 11.5 H Eos % (Auto) 2.2 Baso % (Auto) 0.2 Lymph # (Auto) 1.5 [place] # (Auto) 1.4 H Eos # (Auto) 0.3 Baso # (Auto) 0.0 Abs Immat Gran (auto) 0.05 H Absolute Neuts (auto) 8.9 H Absolute Nucleated RBC 0.000 Nucleated RBC % (auto) 0.0 Smear Tech's Comments O2 Saturation ABG pH at Pt Temp ABG pH (Temp Correct) ABG pCO2 at Pt Temp ABG pCO2 (Temp Corrct ABG pO2 at Pt Temp ABG pO2 (Temp Correct ABG HCO3 ABG Base Excess (Actual) VBG pH VBG pCO2 VBG pO2 VBG HCO3 VBG O2 Saturation VBG Base Excess Sodium Potassium Chloride Carbon Dioxide Anion Gap BUN Creatinine Estim Creat Clear Calc Estimated GFR Random Glucose Lactic Acid Calcium Phosphorus Magnesium Total Bilirubin Direct Bilirubin AST ALT Alkaline Phosphatase Troponin I High Sens 23.5 B-Natriuretic Peptide 122 H Total Protein Albumin Lipase Urine Color Urine Appearance Urine pH Ur Specific [place] Urine Protein Urine Glucose (UA) Urine Ketones Urine Blood Urine Nitrite Ur Leukocyte Esterase Urine Opiates Screen Ur Barbiturates Screen Ur Phencyclidine Scrn Ur Amphetamines Screen U Benzodiazepines Scrn Urine Cocaine Screen U Marijuana (THC) Screen COVID-19 (PRAVEEN) Negative COVID-19 Clin Com See Note 06/20/20 06/20/20 06/20/20 12:19 12:55 13:02 WBC RBC Hgb Hct MCV MCH MCHC RDW Plt Count MPV Immature Gran % (Auto) Neut % (Auto) Lymph % (Auto) [place] % (Auto) Eos % (Auto) Baso % (Auto) Lymph # (Auto) [place] # (Auto) Eos # (Auto) Baso # (Auto) Abs Immat Gran (auto) Absolute Neuts (auto) Absolute Nucleated RBC Nucleated RBC % (auto) Smear Tech's Comments O2 Saturation 93.0 ABG pH at Pt Temp 7.36 ABG pH (Temp Correct) 7.36 ABG pCO2 at Pt Temp 118 H* ABG pCO2 (Temp Corrct 117 H* ABG pO2 at Pt Temp 62 L ABG pO2 (Temp Correct 62 L ABG HCO3 67 H ABG Base Excess (Actual) 33.7 VBG pH VBG pCO2 VBG pO2 VBG HCO3 VBG O2 Saturation VBG Base Excess Sodium 140 Potassium 4.0 Chloride 84 L Carbon Dioxide 48 H* D Anion Gap 12 BUN 20 H D Creatinine 1.06 Estim Creat Clear Calc 73.4 Estimated GFR > 60 Random Glucose 111 Lactic Acid 0.6 Calcium 9.1 Phosphorus Magnesium Total Bilirubin 0.5 Direct Bilirubin < 0.2 AST 23 D ALT 18 Alkaline Phosphatase 52 Troponin I High Sens B-Natriuretic Peptide Total Protein 6.1 L Albumin 4.0 Lipase 13 Urine Color Urine Appearance Urine pH Ur Specific [place] Urine Protein Urine Glucose (UA) Urine Ketones Urine Blood Urine Nitrite Ur Leukocyte Esterase Urine Opiates Screen Ur Barbiturates Screen Ur Phencyclidine Scrn Ur Amphetamines Screen U Benzodiazepines Scrn Urine Cocaine Screen U Marijuana (THC) Screen COVID-19 (PRAVEEN) COVID-19 Clin Com 06/20/20 06/20/20 06/21/20 16:29 16:29 00:35 WBC RBC Hgb Hct MCV MCH MCHC RDW Plt Count MPV Immature Gran % (Auto) Neut % (Auto) Lymph % (Auto) [place] % (Auto) Eos % (Auto) Baso % (Auto) Lymph # (Auto) [place] # (Auto) Eos # (Auto) Baso # (Auto) Abs Immat Gran (auto) Absolute Neuts (auto) Absolute Nucleated RBC Nucleated RBC % (auto) Smear Tech's Comments O2 Saturation ABG pH at Pt Temp ABG pH (Temp Correct) ABG pCO2 at Pt Temp ABG pCO2 (Temp Corrct ABG pO2 at Pt Temp ABG pO2 (Temp Correct ABG HCO3 ABG Base Excess (Actual) VBG pH 7.44 H VBG pCO2 87 VBG pO2 60 VBG HCO3 59 H VBG O2 Saturation 92.0 VBG Base Excess 29.3 Sodium Potassium Chloride Carbon Dioxide Anion Gap BUN Creatinine Estim Creat Clear Calc Estimated GFR Random Glucose Lactic Acid Calcium Phosphorus Magnesium Total Bilirubin Direct Bilirubin AST ALT Alkaline Phosphatase Troponin I High Sens B-Natriuretic Peptide Total Protein Albumin Lipase Urine Color YELLOW Urine Appearance CLEAR Urine pH 6.5 Ur Specific [place] 1.020 Urine Protein NEG Urine Glucose (UA) NEG Urine Ketones NEG Urine Blood NEG Urine Nitrite NEG Ur Leukocyte Esterase NEG Urine Opiates Screen Not Detected Ur Barbiturates Screen Not Detected Ur Phencyclidine Scrn Not Detected Ur Amphetamines Screen Not Detected U Benzodiazepines Scrn Not Detected Urine Cocaine Screen Not Detected U Marijuana (THC) Screen Not Detected COVID-19 (PRAVEEN) COVID-19 Clin Com 06/21/20 06/21/20 06/21/20 04:43 04:44 04:44 WBC 7.2 RBC 3.55 L Hgb 10.9 L Hct 35.9 L MCV 101.1 H MCH 30.7 MCHC 30.4 L RDW 14.3 Plt Count 220 MPV 9.4 Immature Gran % (Auto) 0.8 H Neut % (Auto) 86.9 H Lymph % (Auto) 6.2 L [place] % (Auto) 6.1 Eos % (Auto) 0.0 Baso % (Auto) 0.0 Lymph # (Auto) 0.5 L [place] # (Auto) 0.4 Eos # (Auto) 0.0 Baso # (Auto) 0.0 Abs Immat Gran (auto) 0.06 H Absolute Neuts (auto) 6.3 Absolute Nucleated RBC 0.000 Nucleated RBC % (auto) 0.0 Smear Tech's Comments VERIFIED O2 Saturation ABG pH at Pt Temp ABG pH (Temp Correct) ABG pCO2 at Pt Temp ABG pCO2 (Temp Corrct ABG pO2 at Pt Temp ABG pO2 (Temp Correct ABG HCO3 ABG Base Excess (Actual) VBG pH 7.43 VBG pCO2 92 VBG pO2 45 VBG HCO3 61 H VBG O2 Saturation 79.0 VBG Base Excess 30.8 Sodium 141 Potassium 3.8 Chloride 86 L Carbon Dioxide 46 H* Anion Gap 13 BUN 26 H Creatinine 1.30 Estim Creat Clear Calc 57.6 Estimated GFR 57 Random Glucose 121 H Lactic Acid Calcium 8.7 Phosphorus 5.2 H Magnesium 2.6 Total Bilirubin 0.3 Direct Bilirubin AST 20 ALT 14 Alkaline Phosphatase 53 Troponin I High Sens B-Natriuretic Peptide Total Protein 5.4 L Albumin 3.6 Lipase Urine Color Urine Appearance Urine pH Ur Specific [place] Urine Protein Urine Glucose (UA) Urine Ketones Urine Blood Urine Nitrite Ur Leukocyte Esterase Urine Opiates Screen Ur Barbiturates Screen Ur Phencyclidine Scrn Ur Amphetamines Screen U Benzodiazepines Scrn Urine Cocaine Screen U Marijuana (THC) Screen COVID-19 (PRAVEEN) COVID-19 Clin Com 06/21/20 10:20 WBC RBC Hgb Hct MCV MCH MCHC RDW Plt Count MPV Immature Gran % (Auto) Neut % (Auto) Lymph % (Auto) [place] % (Auto) Eos % (Auto) Baso % (Auto) Lymph # (Auto) [place] # (Auto) Eos # (Auto) Baso # (Auto) Abs Immat Gran (auto) Absolute Neuts (auto) Absolute Nucleated RBC Nucleated RBC % (auto) Smear Tech's Comments O2 Saturation 89.0 ABG pH at Pt Temp 7.48 H ABG pH (Temp Correct) ABG pCO2 at Pt Temp 78 H* ABG pCO2 (Temp Corrct ABG pO2 at Pt Temp 59 L ABG pO2 (Temp Correct ABG HCO3 58 H ABG Base Excess (Actual) 29.5 VBG pH VBG pCO2 VBG pO2 VBG HCO3 VBG O2 Saturation VBG Base Excess Sodium Potassium Chloride Carbon Dioxide Anion Gap BUN Creatinine Estim Creat Clear Calc Estimated GFR Random Glucose Lactic Acid Calcium Phosphorus Magnesium Total Bilirubin Direct Bilirubin AST ALT Alkaline Phosphatase Troponin I High Sens B-Natriuretic Peptide Total Protein Albumin Lipase Urine Color Urine Appearance Urine pH Ur Specific [place] Urine Protein Urine Glucose (UA) Urine Ketones Urine Blood Urine Nitrite Ur Leukocyte Esterase Urine Opiates Screen Ur Barbiturates Screen Ur Phencyclidine Scrn Ur Amphetamines Screen U Benzodiazepines Scrn Urine Cocaine Screen U Marijuana (THC) Screen COVID-19 (PRAVEEN) COVID-19 Clin Com Progress Note: A&P Assessment and plan (1) Acute on chronic respiratory failure with hypoxia and hypercapnia: Status: Acute Assessment and Plan: Assessment: 60-year-old gentleman with underlying severe supplemental oxygen dependent COPD, JUANY on CPAP, multiple admissions for acute on chronic hypercapnic respiratory failure admitted with acute on chronic hypoxic hypercapnic respiratory failure secondary to COPD exacerbation requiring BiPAP support. Plan: Neuro: Alcohol withdrawal, continue on phenobarbital protocol. Cardiac: Underlying history of hypertension and coronary artery disease, continue on losartan, Imdur, nifedipine, carvedilol, and Plavix. Pulmonary: Acute on chronic hypoxic and hypercapnic respiratory failure secondary to COPD exacerbation initially requiring BiPAP support. Patient has been titrated off BiPAP support. He does have underlying significant CO2 retention. Maintain O2 saturation of 88-92%, not high 93%. Continue with nebulized bronchodilators and systemic glucocorticoids. Continue with CPAP at night. Acetazolamide IV for 3 days. Renal: No acute issues. Endo: No acute issues. GI: No acute issues. ID: No acute issues Heme/Onc: No acute issues. Psych: No acute issues. Miscellaneous: No acute issues. Prophylaxis: Lovenox Diet: Regular Critical care time spent: 45 minutes (2) Acute exacerbation of chronic obstructive pulmonary disease: Status: Acute (3) History of chronic carbon dioxide retention: Status: Acute (4) CO2 retention: Status: Acute (5) Alcohol withdrawal: Status: Acute Critical Care Time 45 minutes
--- NOTE | 2020-06-21 12:31 | MHC.CM.PN ---
[place] [facility] was unavailable by phone; CM spoke with Daughter/HCP/Matilde @ [phone]. Patient typically lives alone in his apartment but his Nephew is staying with him at this time. 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 Patient uses O2 and Cpap @ home. The goal for dc is home/resume services and CM has initiated and will follow for dc planning.CM addressed IMM with Matilde and at her request, original will be left at Patien's bedside and a copy will be placed on the chart.
[2020-06-21] MEDS: hydrALAZINE HCl 50 MG TABLET 100 MG PO ×3 (13:40→20:50)
[2020-06-21] MEDS: NIFEdipine ER 30 MG TAB.ER.24 60 MG PO (14:52)
[2020-06-21] MEDS: Acetaminophen 325 MG TABLET 650 MG PO (20:51)
[2020-06-22] VITALS (12 sets, daily range): BP systolic 107–150; BP diastolic 55–78; PULSE 56–85; RESP 18–20; TEMP 36.1–37.1; O2SAT 91–98
[2020-06-22] MEDS: acetaZOLAMIDE sodium 500 MG VIAL 250 MG IVPUSH ×2 (02:06→14:28)
[2020-06-22] MEDS: Albuterol/Iprat 2.5/0.5MG 3 ML AMPUL.NEB INHALE ×4 (05:57→20:22)
[2020-06-22 06:59] LABS: Hematocrit 39.3 % (42-52); Hemoglobin 12.1 g/dl (14.0-18.0); Mean Corpuscular HGB Conc 30.8 g/dl (31.0-36.0); Mean Corpuscular Hemoglobin 30.5 pg (27.0-33.0); Mean Platelet Volume 10.4 fL (9.4-12.4); Platelet Count 287 X10*3/uL (160-400); Red Blood Count 3.97 X10*6/uL (4.60-5.80); Red Cell Distribution Width 14.4 % (11.0-16.0); White Blood Count 11.5 X10*3/uL (4.8-10.8)
[2020-06-22 09:08] LABS: Anion Gap 13 (12-20); Blood Urea Nitrogen 27 mg/dL (9-16); Calcium 9.1 mg/dL (8.4-10.2); Carbon Dioxide 37 mmol/L (22-29); Chloride 93 mmol/L (96-108); Creatinine Clr Calc Pharmacy 68.3; Estimated Glomerular Filt Rate > 60; Glucose Random 99 mg/dL (60-115); Potassium 3.6 mmol/L (3.3-5.1); Sodium 139 mmol/L (135-145)
[2020-06-22] MEDS: Isosorbide Mononitrate 60 MG TAB.ER.24H PO (09:25)
[2020-06-22] MEDS: NIFEdipine ER 60 MG TAB.ER.24 PO (09:25)
[2020-06-22] MEDS: Losartan Potassium 50 MG TABLET PO (09:25)
[2020-06-22] MEDS: PHENobarbitaL 15 MG TABLET 45 MG PO ×2 (09:25→21:39)
[2020-06-22] MEDS: Aspirin Enteric Coated 81 MG TABLET.DR PO (09:25)
[2020-06-22] MEDS: Clopidogrel Bisulfate 75 MG TABLET PO (09:26)
[2020-06-22] MEDS: hydrALAZINE HCl 50 MG TABLET 100 MG PO ×3 (09:26→21:38)
[2020-06-22] MEDS: carvediloL 6.25 MG TABLET PO ×2 (09:26→21:38)
[2020-06-22] MEDS: methylPREDNISolone Sod Succ 40 MG/ML VIAL IVPUSH (09:27)
[2020-06-22] MEDS: Buprenorphine/Naloxone 8/2 mg FILM 2 FILM SUBLINGUAL (09:27)
[2020-06-22] MEDS: clonazePAM 0.5 MG TABLET PO ×2 (10:11→21:45)
--- NOTE | 2020-06-22 12:12 | MHC.CM.PN ---
per rounds this morning ,pt expected to dc 06/23 plan remains home with resumption of servceis thru [facility]
--- NOTE | 2020-06-22 15:56 | P.PNIM_ITS ---
Subjective Subjective Date of Service: 06/22/20 Interval History: The patient was seen and evaluated this morning Sitting in bed, leading forward, feels SOB and dyspneic with ambulation In mild respiratory distress, oxygen supplement Denies any fever, chills No reported other overnight events Systemic review: No fever, chills or weakness No chest pain, palpitation Dyspnea on exertion and feeling shortness of breath even at rest No abdominal pain, nausea or vomiting No urinary symptoms No any rash or wounds Physical Exam Vital Signs: Vital Signs: Last Vital Signs Temp 97.1 F 06/22/20 15:14 Pulse 68 06/22/20 15:14 Resp 20 06/22/20 15:14 BP 126/59 L 06/22/20 15:14 Pulse Ox 94 06/22/20 15:14 Oxygen Flow Rate 3 06/20/20 11:47 Body Mass Index 23.1 Const: Other: Constitutional : Alert, oriented, not in distress Neck : Normal inspection, Supple Cardiovascular : RRR, S1 S2, no lower extremity edema Respiratory : Decrease bilateral air entry, scattered wheezes bilaterally, in 9 Spiriva distress, on 3 L of oxygen Gastrointestinal: soft, lax, Normal bowel sounds, Non tender Skin : Warm/Dry, No rash Neurological : Alert & oriented x3, No focal deficit Objective Data Current Medications Generic Name Dose Route Start Last Admin Trade Name Freq PRN Reason Stop Dose Admin Acetaminophen 650 mg 06/21/20 19:56 06/21/20 20:51 Acetaminophen 325 Mg Tablet PO 650 mg Q8H PRN Administration Pain, Mild (Pain Scale 1-3) Acetazolamide 250 mg 06/20/20 14:00 06/22/20 14:28 Acetazolamide Sodium 500 Mg Vial IVPUSH 250 mg Q12H ALEXUS Administration Albuterol Sulfate 1.25 mg 06/22/20 09:40 Albuterol Sulfate (0.042%) 1.25 Mg/3 Ml Vial.Neb INHALE RQ4H PRN Shortness of Breath/Wheezing Albuterol/Ipratropium 3 ml 06/22/20 12:00 06/22/20 10:37 Albuterol/Iprat 2.5/0.5mg 3 Ml Ampul.Neb INHALE 3 ml RQ4H WHILE AWAKE ALEXUS Administration Aspirin 81 mg 06/22/20 09:00 06/22/20 09:25 Aspirin Enteric Coated 81 Mg Tablet. PO 81 mg DAILY ALEXUS Administration Buprenorphine/Naloxone 2 film 06/20/20 17:45 06/22/20 09:27 Buprenorphine/Naloxone 8/2 Mg Film SUBLINGUAL 2 film DAILY ALEXUS Administration Carvedilol 6.25 mg 06/21/20 21:00 06/22/20 09:26 Carvedilol 6.25 Mg Tablet PO 6.25 mg BID ALEXUS Administration Protocol Clonazepam 0.5 mg 06/22/20 09:41 06/22/20 10:11 Clonazepam 0.5 Mg Tablet PO 0.5 mg BID PRN Administration Anxiety Clopidogrel Bisulfate 75 mg 06/21/20 09:10 06/22/20 09:26 Clopidogrel Bisulfate 75 Mg Tablet PO 75 mg DAILY [facility] Administration Enoxaparin Sodium 40 mg 06/20/20 14:00 06/22/20 14:29 Enoxaparin Sodium 40 Mg/0.4 Ml Syringe SUBCUT Not Given Q24H [facility] Hydralazine HCl 100 mg 06/21/20 12:10 06/22/20 14:28 Hydralazine Hcl 50 Mg Tablet PO 100 mg TID [facility] Administration Protocol Isosorbide Mononitrate 60 mg 06/21/20 09:10 06/22/20 09:25 Isosorbide Mononitrate 60 Mg Tab.Er.24h PO 60 mg DAILY [facility] Administration Protocol Losartan Potassium 50 mg 06/21/20 09:05 06/22/20 09:25 Losartan Potassium 50 Mg Tablet PO 50 mg DAILY [facility] Administration Protocol Medication 1 each 06/20/20 20:39 No Benzodiazepines MISCELLANE DAILY [facility] Methylprednisolone Sodium Succinate 40 mg 06/21/20 09:00 06/22/20 09:27 Methylprednisolone Sod Succ 40 Mg/Ml Vial IVPUSH 40 mg DAILY [facility] Administration Nifedipine 60 mg 06/22/20 09:00 06/22/20 09:25 Nifedipine Er 60 Mg Tab.Er.24 PO 60 mg DAILY [facility] Administration Protocol Ondansetron HCl 4 mg 06/20/20 13:58 Ondansetron Hcl 4 Mg/2 Ml Vial IVPUSH Q8H PRN Nausea Phenobarbital 45 mg 06/21/20 09:00 06/22/20 09:25 Phenobarbital 15 Mg Tablet PO 06/22/20 21:01 45 mg BID [facility] Administration Protocol Phenobarbital 15 mg 06/23/20 09:00 Phenobarbital 15 Mg Tablet PO 06/24/20 21:01 BID [facility] Protocol Phenobarbital 15 mg 06/25/20 09:00 Phenobarbital 15 Mg Tablet PO 06/26/20 09:01 DAILY [facility] Protocol Tiotropium [place] 1 puff 06/22/20 09:45 06/22/20 10:37 Tiotropium [place] 18 Mcg Cap.W.Dev INHALE 1 puff RDAILY [facility] Administration Labs CBC & Chem 7: 06/22/20 05:54 06/22/20 08:16 Microbiology Microbiology Results: Microbiology 06/20/20 12:53 Blood - Venous Blood Culture - Preliminary No growth after 48 hours. 06/20/20 12:42 Blood - Venous Blood Culture - Preliminary No growth after 48 hours. Assessment and Plan (1) Alcohol withdrawal: Status: Acute (2) CO2 retention: Status: Acute (3) Acute on chronic respiratory failure with hypoxia and hypercapnia: Status: Acute (4) Tobacco abuse: Status: Acute Assessment and Plan: 60-year old gentleman with underlying history of supplemental oxygen dependent 2-3 L COPD, multiple admissions for acute hypercapnic respiratory failure, also hypertension, opioid dependence on Suboxone, JUANY poorly compliant with CPAP admitted on 06/20/2020 with 1-2 day history of worsening dyspnea. Acute hypoxic hypercapnic respiratory failure Secondary to COPD exacerbation Maintain O2 saturation of 88-92% Continue with nebulized bronchodilators Continue systemic glucocorticoids Continue with CPAP at night Acetazolamide IV for 3 days. Alcohol abuse Alcohol withdrawal continue phenobarbital Symptoms controlled history of hypertension coronary artery disease continue on losartan, Imdur, nifedipine, carvedilol, and Plavix DVT PPX Lovenox
[2020-06-22] MEDS: Fluticasone Propionate Nasal 16 GM SPRAY 1 SPRAY NOSTRIL-B (23:02)
[2020-06-23] MEDS: acetaZOLAMIDE sodium 500 MG VIAL 250 MG IVPUSH (02:38)
[2020-06-23 03:02] VITALS: BP 125/57; PULSE 62; RESP 18; TEMP 36.1; O2SAT 94
[2020-06-23 05:58] LABS: Hematocrit 36.2 % (42-52); Hemoglobin 11.2 g/dl (14.0-18.0); Mean Corpuscular HGB Conc 30.9 g/dl (31.0-36.0); Mean Corpuscular Hemoglobin 30.1 pg (27.0-33.0); Mean Corpuscular Volume 97.3 fL (80-98); Platelet Count 249 X10*3/uL (160-400); Red Blood Count 3.72 X10*6/uL (4.60-5.80); Red Cell Distribution Width 14.5 % (11.0-16.0); White Blood Count 11.1 X10*3/uL (4.8-10.8)
[2020-06-23 06:32] LABS: Anion Gap 13 (12-20); Blood Urea Nitrogen 29 mg/dL (9-16); Calcium 8.7 mg/dL (8.4-10.2); Carbon Dioxide 33 mmol/L (22-29); Chloride 96 mmol/L (96-108); Creatinine Clr Calc Pharmacy 67.7; Estimated Glomerular Filt Rate > 60; Glucose Random 79 mg/dL (60-115); Potassium 3.6 mmol/L (3.3-5.1); Sodium 138 mmol/L (135-145)
[2020-06-23 07:09] VITALS: BP 129/61; PULSE 73; RESP 18; TEMP 36.6; O2SAT 94
[2020-06-23] MEDS: Albuterol/Iprat 2.5/0.5MG 3 ML AMPUL.NEB INHALE ×2 (07:13→11:08)
[2020-06-23 07:14] VITALS: PULSE 69; O2SAT 94
[2020-06-23 07:15] VITALS: PULSE 69; O2SAT 94
[2020-06-23] MEDS: methylPREDNISolone Sod Succ 40 MG/ML VIAL IVPUSH (07:49)
[2020-06-23] MEDS: carvediloL 6.25 MG TABLET PO (07:49)
[2020-06-23] MEDS: hydrALAZINE HCl 50 MG TABLET 100 MG PO (07:49)
[2020-06-23] MEDS: Isosorbide Mononitrate 60 MG TAB.ER.24H PO (07:49)
[2020-06-23] MEDS: NIFEdipine ER 60 MG TAB.ER.24 PO (07:49)
[2020-06-23] MEDS: Clopidogrel Bisulfate 75 MG TABLET PO (07:50)
[2020-06-23] MEDS: Losartan Potassium 50 MG TABLET PO (07:50)
[2020-06-23] MEDS: PHENobarbitaL 15 MG TABLET PO (07:50)
[2020-06-23] MEDS: Buprenorphine/Naloxone 8/2 mg FILM 2 FILM SUBLINGUAL (07:50)
[2020-06-23] MEDS: Aspirin Enteric Coated 81 MG TABLET.DR PO (07:50)
[2020-06-23] MEDS: Fluticasone Propionate Nasal 16 GM SPRAY 1 SPRAY NOSTRIL-B (08:23)
--- NOTE | 2020-06-23 10:32 | P.CDIC_ITS ---
CDI Concurrent Query Service Date: 06/23/20 Documentation Clarification: Please clarify if you are treating a proba ble/suspected/likely or confirmed: Chronic systolic and/or diastolic CHF (treat, rule out) Acute on chronic systolic and/or diastolic CHF Please specify if known or undetermined Provider Response: Other Other Diagnosis: No acute heart failure PLEASE DO NOT DELETE/MODIFY EXISTING CONTENT Additional information is needed in order to code to the highest accuracy and appropriate Severity of Illness (SOI). Please clarify the information noted below in your progress notes and discharge summary. Risk Factors/Clinical Indicators/Treatments ED: PMH: Congestive heart failure dyspneic, hypoxia, on 3 liters oxygen, no lower extremity edema. CDS: [facility], [facility] Contact Number: [phone] Please Review the information above and exercise your independent professional judgment in responding to the query. If you concur, pleas document in the PROGRESS NOTES and DISCHARGE SUMMARY. If you do not agree with the query, please document in the query above. THIS QUERY IS PART OF THE PERMANENT MEDICAL RECORD
--- NOTE | 2020-06-23 10:37 | P.DS_ITS ---
DS: Providers Provider Date of Service: 06/23/20 Date of admission: 06/20/20 13:58 Primary care physician: Unknown Physician Consults: 06/20/20 17:29 Consult Respiratory Therapy Routine Reason for consultation: Bipap/Cpap DS: Diagnosis Discharge Diagnosis (1) Alcohol withdrawal: Status: Acute (2) CO2 retention: Status: Acute (3) Acute on chronic respiratory failure with hypoxia and hypercapnia: Status: Acute (4) Tobacco abuse: Status: Acute (5) COPD exacerbation: Status: Acute DS: Medications Discharge Medications Home Medications: Home Medications Medication Instructions Recorded Confirmed Combivent Respimat 1 puff INHALATION QID 06/09/20 06/20/20 albuterol sulfate 1 amp INHALATION Q6H PRN 06/09/20 06/20/20 aspirin 1 tab PO DAILY 06/09/20 06/20/20 atorvastatin 1 tab PO BEDTIME 06/09/20 06/20/20 buprenorphine-naloxone 2 strip SUBLINGUAL DAILY 06/09/20 06/20/20 carvedilol 1 tab PO BID 06/09/20 06/20/20 clonazepam 1 tab PO DAILY PRN 06/09/20 06/20/20 clopidogrel 1 tab PO DAILY 06/09/20 06/20/20 folic acid 1 tab PO DAILY 06/09/20 06/20/20 gabapentin 1 tab PO BID 06/09/20 06/20/20 hydralazine 2 tab PO TID 06/09/20 06/20/20 isosorbide mononitrate 1 tab PO QAM 06/09/20 06/20/20 losartan 1 tab PO DAILY 06/09/20 06/20/20 nifedipine 1 tab PO DAILY 06/09/20 06/20/20 pantoprazole 1 tab PO BID 06/09/20 06/20/20 trazodone 1 tab PO BEDTIME 06/09/20 06/20/20 zolpidem 1 tab PO BEDTIME PRN 06/09/20 06/20/20 Previous Rx's Medication Instructions Recorded ipratropium-albuterol 3 ml INHALATION Q6H 30 Days ml 06/23/20 nicotine 1 patch TOPICAL DAILY #30 ea 06/23/20 prednisone 40 mg PO DAILY #6 tab 06/23/20 DS: Summary Hospital Course Hospital Course: Admission note HPI 60-year old gentleman with underlying history of supplemental oxygen dependent 2-3 L COPD, multiple admissions for acute hypercapnic respiratory failure, also hypertension, opioid dependence on Suboxone, JUANY poorly compliant with CPAP admitted on 06/20/2020 with 1-2 day history of worsening dyspnea. On ER evaluation patient was noted to be in acute exacerbation of underlying COPD with acute on chronic hypoxic and hypercapnic respiratory failure with respiratory acidosis requiring BiPAP support. Patient has been started on systemic glucocorticoids and nebulized bronchodilators and admitted to the intensive care unit. Hospital course The patient was admitted to the ICU for acute hypoxic respiratory failure secondary to CO2 retention from COPD exacerbation and non compliant with CPAP at home. He was started on BiPAP treatment with good response as his repeated ABGs showed improvement in CO2 retention. He was started on IV steroids and nebu lized bronchodilators. Transferred to the medical floor where he continued the same treatment with significant improvement in respiratory status. He was weaned down to 2 L of oxygen with O2 sat around 93% similar to his baseline at home. He has a history of alcohol abuse and was started on phenobarbital treatment with fair response as no symptoms of withdrawal developed during the hospital stay. Continue prednisone as prescribed A new nebulizer medication was prescribed to use every 4-6 hours for the next 3 days Advised to Stop smoking and NRT was prescribed Time Spent with Patient Time attestation: Total time spent providing and/or coordinating discharge services: Discharge coordination time: Greater than 30 minutes Physical Exam Vital Signs: Vital Signs: Last Vital Signs Temp 98 F 06/23/20 07:09 Pulse 69 06/23/20 07:15 Resp 18 06/23/20 07:09 BP 129/61 06/23/20 07:09 Pulse Ox 94 06/23/20 07:09 Oxygen Flow Rate 3 06/20/20 11:47 Body Mass Index 23.1 Const: Other: Constitutional : Alert, oriented, not in distress Neck : Normal inspection, Supple Cardiovascular : RRR, S1 S2, no lower extremity edema Respiratory : For bilateral air entry, very few scattered wheezes bilaterally, looks comfortable, on 3 L of oxygen Gastrointestinal: soft, lax, Normal bowel sounds, Non tender Skin : Warm/Dry, No rash Neurological : Alert & oriented x3, No focal deficit DS: Data Data Completed and Pending Labs on day of discharge: Laboratory Results - last 24 hr 06/23/20 06/23/20 05:10 05:10 WBC 11.1 H RBC 3.72 L Hgb 11.2 L Hct 36.2 L MCV 97.3 MCH 30.1 MCHC 30.9 L RDW 14.5 Plt Count 249 MPV 10.0 Absolute Nucleated RBC 0.000 Nucleated RBC % (auto) 0.0 Sodium 138 Potassium 3.6 Chloride 96 Carbon Dioxide 33 H Anion Gap 13 BUN 29 H Creatinine 1.15 Estim Creat Clear Calc 67.7 Estimated GFR > 60 Random Glucose 79 Calcium 8.7 Preliminary micro results at discharge 06/20/20 12:53 Blood Culture - Preliminary Blood - Venous No growth after 48 hours. 06/20/20 12:42 Blood Culture - Preliminary Blood - Venous No growth after 48 hours. Discharge Plan Discharge Patient Disposition: Home, Self-Care Discharge Diagnosis: COPD exacerbation CO2 retention Referrals: Physician,Unknown [Primary Care Provider] - 1 Week Discharge Medications: New ipratropium-albuterol 0.5 mg-3 mg(2.5 mg base)/3 mL Solution For Nebulization 3 ml inhalation Q6H 30 Days RF: 0 prednisone 20 mg tablet 40 mg PO DAILY Qty: 6 RF: 0 Continued losartan 50 mg tablet 1 tab PO DAILY RF: 0 carvedilol 25 mg tablet 1 tab PO BID RF: 0 gabapentin 600 mg tablet 1 tab PO BID RF: 0 albuterol sulfate 2.5 mg /3 mL (0.083 %) solution for nebulization 1 amp inhalation Q6H PRN (Reason: Wheezing) RF: 0 trazodone 50 mg tablet 1 tab PO BEDTIME RF: 0 clonazepam 0.5 mg tablet 1 tab PO DAILY PRN (Reason: Anxiety) RF: 0 aspirin 81 mg tablet,delayed release (DR/EC) 1 tab PO DAILY RF: 0 pantoprazole 20 mg tablet,delayed release (DR/EC) 1 tab PO BID RF: 0 isosorbide mononitrate 60 mg tablet extended release 24 hr 1 tab PO QAM RF: 0 nifedipine 90 mg tablet extended release 24hr 1 tab PO DAILY RF: 0 hydralazine 50 mg tablet 2 tab PO TID RF: 0 zolpidem 5 mg tablet 1 tab PO BEDTIME PRN (Reason: Insomnia) RF: 0 buprenorphine-naloxone 8-2 mg film 2 strip sublingual DAILY RF: 0 Combivent Respimat 20-100 mcg/actuation mist 1 puff inhalation QID RF: 0 atorvastatin 80 mg tablet 1 tab PO BEDTIME RF: 0 clopidogrel 75 mg tablet 1 tab PO DAILY RF: 0 folic acid 1 mg tablet 1 tab PO DAILY RF: 0 nicotine 21 mg/24 hr patch 24 hour 1 patch topical DAILY Qty: 30 RF: 0 Discharge Orders: Discharge Order (Routine); Ordered 06/23/20 Ordered By: Rosa Angela Diet: advance to usual diet Activity on Discharge: As tolerated Stand Alone Forms: Patient Portal Discharge page Care Plan Goals: Read below Health Concerns: Read below Plan of Treatment: You were admitted to the hospital with worsening respiratory symptoms of shortness of breath and altered mentation requiring ICU admission and treatment on the BiPAP machine with usage of steroids and bronchodilators. Your responded well to the treatment and continued active medications on the medical floor with weaning her oxygen requirements to 2-3 L. Assessment: Continue prednisone as prescribed A new nebulizer medication was prescribed to use every 4-6 hours for the next 3 days Stop smoking
[2020-06-23 11:09] VITALS: PULSE 69; O2SAT 93
--- NOTE | 2020-06-23 11:22 | MHC.CM.PN ---
pt dcd with resumption of [facility]ist[facility]ru [facility] including rn and beater operator services,,message left for brenda,cm for [facility] also noted to bernda that he will need pulmonary follow up
--- NOTE | 2020-06-23 11:26 | MHC.CM.PN ---
pt dcd home with resumption of rn servceis thru [facility] and also certified technician brenda marie for [facility] left message re pts dc
== END 2020-06-23 13:11 | disposition home or self-care (01) | DRG 190 ==
LOC: HO.ED 14:13 → HO.EDOVER 14:33 → HO.ICU 15:22 → HO.IMC 06-21 11:54
PROVIDERS: Registered Nurse Community Health; Admitting Provider Internal Medicine Pulmonary Disease; Emergency Provider Emergency Medicine; Visit Provider Student in an Organized Health Care Education/Training Program
DX: J44.1 Chronic obstructive pulmonary disease with (acute) exacerbation (principal); J96.21 Acute and chronic respiratory failure with hypoxia; J96.22 Acute and chronic respiratory failure with hypercapnia; F10.139 Alcohol abuse with withdrawal, unspecified; F11.20 Opioid dependence, uncomplicated; I10 Essential (primary) hypertension; F17.210 Nicotine dependence, cigarettes, uncomplicated; Z71.6 Tobacco abuse counseling; Z99.81 Dependence on supplemental oxygen; G47.33 Obstructive sleep apnea (adult) (pediatric); Z20.822 Contact with and (suspected) exposure to COVID-19; Z79.82 Long term (current) use of aspirin; Z79.02 Long term (current) use of antithrombotics/antiplatelets; Z79.899 Other long term (current) drug therapy
CPT/HCPCS: 36415; 36600; 71045; 80048; 80053; 80076; 80307; 81003; 83605; 83690; 83735; 83880; 84100; 84484; 85025; 85027; 87040; 87635; 93005; 94660; 94799; 96365; 96366; 96375; 99285; 99291; C1758; J0696; J1650; J2560; J2920; J2930; J3475

== ENCOUNTER 2020-10-26 16:16 | Emergency (ER) | payer OTHER, SELFPAY ==
[2020-10-26 16:25] VITALS: BP 127/65; PULSE 71; RESP 16; TEMP 36.3; O2SAT 96; BMI 21.3
--- NOTE | 2020-10-26 16:32 | ED_ITS ---
HPI - Arrhythmia/Palpitations General Chief Complaint: Arrhythmia/Palpitations Stated Complaint: palpitatios Time Seen by Provider: 10/26/20 16:32 History of Present Illness HPI narrative: Patient 60 years old with history of oxygen-dependent COPD, multiple admissions for acute hypercapnic respiratory failure, hypertension, opiate dependence on Suboxone, sleep apnea noncompliant on CPAP to the ER for palpitation episode which happened while he was watching TV he felt his heart is beating fast lasted for about 15 minutes terminated when he took few deep breaths and had cold water patient patient says that he had similar episode in the past and no cardiac workup has been done , no chest pain or significant increase in the shortness of breath no fever or chills patient felt slightly lightheaded when this episode happened Related Data Home Medications Medication Instructions Recorded Confirmed albuterol sulfate 1 amp INHALATION Q6H PRN 06/09/20 06/20/20 aspirin 81 mg tablet,delayed 1 tab PO DAILY 06/09/20 06/20/20 release atorvastatin 80 mg tablet 1 tab PO BEDTIME 06/09/20 06/20/20 buprenorphine 8 mg-naloxone 2 mg 2 strip SUBLINGUAL DAILY 06/09/20 06/20/20 sublingual film carvedilol 25 mg tablet 1 tab PO BID 06/09/20 06/20/20 clonazepam 0.5 mg tablet 1 tab PO DAILY PRN 06/09/20 06/20/20 clopidogrel 75 mg tablet 1 tab PO DAILY 06/09/20 06/20/20 folic acid 1 mg tablet 1 tab PO DAILY 06/09/20 06/20/20 gabapentin 600 mg tablet 1 tab PO BID 06/09/20 06/20/20 hydralazine 50 mg tablet 2 tab PO TID 06/09/20 06/20/20 ipratropium 20 mcg-albuterol 100 1 puff INHALATION QID 06/09/20 06/20/20 mcg/actuation mist for inhalation (Combivent Respimat) isosorbide mononitrate 60 mg 1 tab PO QAM 06/09/20 06/20/20 tablet,extended release 24 hr losartan 50 mg tablet 1 tab PO DAILY 06/09/20 06/20/20 nifedipine 90 mg tablet,extended 1 tab PO DAILY 06/09/20 06/20/20 release 24 hr pantoprazole 20 mg tablet,delayed 1 tab PO BID 06/09/20 06/20/20 release trazodone 50 mg tablet 1 tab PO BEDTIME 06/09/20 06/20/20 zolpidem 5 mg tablet 1 tab PO BEDTIME PRN 06/09/20 06/20/20 Previous Rx's Medication Instructions Recorded ipratropium 0.5 mg-albuterol 3 mg 3 ml INHALATION Q6H 30 Days ml 06/23/20 (2.5 mg base)/3 mL nebulization soln nicotine 21 mg/24 hr daily 1 patch TOPICAL DAILY #30 ea 06/23/20 transdermal patch prednisone 20 mg tablet 40 mg PO DAILY #6 tab 06/23/20 Allergies Allergy/AdvReac Type Severity Reaction Status Date / Time KERI Inhibitors Allergy Wheezing Verified 06/09/20 17:52 HAIR DYE Allergy Unknown HIVES Uncoded 11/14/19 15:39 Review of Systems Review of Systems: Constitutional : No Weight loss, No Fever, No Chills ENT/Mouth : No sore throat, No Rhinorrhea Eyes: No Eye Pain, No Swelling Cardiovascular : No Chest Pain, + palpitations Respiratory : No Cough, No Sputum, + shortness of breath Gastrointestinal : no Nausea, No Vomiting, No Diarrhea, No abdominal Pain, no black stools Genitourinary : No Dysuria, No Urinary Frequency Musculoskeletal : No joint pain, No Myalgias, No Joint Swelling Skin : No Skin Lesions, No rash Neuro : No Weakness, No Numbness, No Dizziness, No Headache Psych : No Anxiety/Panic, No Depression Heme/Lymph: No Bruising, No Lymphadenopathy Endocrine : No Polyuria, No Polydipsia All other systems reviewed and are negative [facility] Past Medical History Medical History Alcohol abuse Chronic hypercapnic respiratory failure Chronic respiratory failure with hypoxia and hypercapnia Congestive heart failure COPD (chronic obstructive pulmonary disease) COPD exacerbation History of chronic carbon dioxide retention Impetigo Tobacco abuse Social History Social History Household Members: None Housing: House Do you presently have visiting nurse or other home services: Yes Alcohol intake: former Cigarette Packs Per Day: 1 Cigarettes Per Day: 4 Years Smoked: 30 Second Hand Smoke Exposure: Yes Substance Use Type: Marijuana Advance Directives: No Advance Directives Information Provided: No service: No Current occupational status: disabled Physical Exam Vital Signs: Vital Signs: Last Vital Signs Temp 97.4 F 10/26/20 16:25 Pulse 71 10/26/20 16:25 Resp 16 10/26/20 16:25 BP 127/65 10/26/20 16:25 Pulse Ox 96 10/26/20 16:25 Body Mass Index 21.3 Appearance: Alert. Oriented X3. No acute distress. Eyes: PERRLA, No Nystagmus ENT: Pharynx normal. Oral Mucosa moist Neck: Normal inspection. Neck supple. CVS: Normal heart rate and rhythm. Pulses normal. Respiratory: No respiratory distress. Equal air entry bilateral, no wheezing/rales/rhonchi Abdomen: Soft and nontender. Bowel sounds are present, no mass palpable, no CVA tenderness Skin: Skin warm and dry. Normal skin color. Normal skin turgor. Extremities: No lower extremity edema. No calf tenderness Neuro: Oriented X 3. No motor deficit. No sensory deficit.No cerebellar signs , cranial nerves II-XII intact MDM - Arrhythmia/Palpitations MDM Narrative Medical decision making narrative: patient with anxiety/panic attack when EMS reached patient had heart rate of 80 during stay in the ER no arrhythmias noticed patient had similar episodes in the past multiple times diagnosis panic attack. Labs are stable patient advised to follow-up with primary care doctor for further evaluation Medical Records Attestation: I reviewed the patient's medical records. Lab Data Attestation: I reviewed the patient's lab results. Result diagrams: 10/26/20 17:27 10/26/20 17:27 Labs: Lab Results 10/26/20 10/26/20 10/26/20 Range/Units 17:27 17:27 17:27 WBC 11.1 H (4.8-10.8) X10*3/uL RBC 3.99 L (4.60-5.80) X10*6/uL Hgb 12.2 L (14.0-18.0) g/dl Hct 38.6 L (42-52) % MCV 96.7 (80-98) fL MCH 30.6 (27.0-33.0) pg MCHC 31.6 (31.0-36.0) g/dl RDW 13.8 (11.0-16.0) % Plt Count 218 (160-400) X10*3/uL MPV 9.7 (9.4-12.4) fL Immature Gran % (Auto) 0.5 H (0.0-0.4) % Neut % (Auto) 79.8 H (45-73) % Lymph % (Auto) 9.0 L (20-40) % Collier % (Auto) 8.2 (2-11) % Eos % (Auto) 1.9 (0-4) % Baso % (Auto) 0.6 (0-2) % Lymph # (Auto) 1.0 L (1.2-4.9) X10*3/uL Collier # (Auto) 0.9 (0.1-1.2) X10*3/uL Eos # (Auto) 0.2 (0.0-0.4) X10*3/uL Baso # (Auto) 0.1 (0.0-0.2) X10*3/uL Abs Immat Gran (auto) 0.05 H (0.00-0.03) X10*3/uL Absolute Neuts (auto) 8.8 H (2.0-8.3) X10*3/uL Absolute Nucleated RBC 0.000 (0.0-0.012) X10*3/uL Nucleated RBC % (auto) 0.0 (0.0-0.2) /100WBC Sodium 140 (135-145) mmol/L Potassium 3.7 (3.3-5.1) mmol/L Chloride 96 (96-108) mmol/L Carbon Dioxide 35 H (22-29) mmol/L Anion Gap 13 (12-20) BUN 19 H (9-16) mg/dL Creatinine 1.33 (0.5-1.4) mg/dL Estim Creat Clear Calc 59.4 Estimated GFR 55 Random Glucose 105 (60-115) mg/dL Calcium 8.7 (8.4-10.2) mg/dL Troponin I High Sens 17.1 (<3.5-35.0) ng/L ECG Data Attestation: I personally reviewed and interpreted this ECG as follows: Interpretation: Normal sinus rhythm heart rate 67 beats per minute normal intervals normal axis no acute ST-T changes no arrhythmias Discharge Plan Discharge Clinical Impression: Palpitations, Panic attack Patient Disposition: Home, Self-Care Instructions: Heart Palpitations (ED), Panic Attack (ED) Additional Instructions: rest at home take your medications follow with PCP if any concern Prescriptions: No Action losartan 50 mg tablet 1 tab PO DAILY RF: 0 carvedilol 25 mg tablet 1 tab PO BID RF: 0 gabapentin 600 mg tablet 1 tab PO BID RF: 0 albuterol sulfate 2.5 mg /3 mL (0.083 %) solution for nebulization 1 amp inhalation Q6H PRN (Reason: Wheezing) RF: 0 trazodone 50 mg tablet 1 tab PO BEDTIME RF: 0 clonazepam 0.5 mg tablet 1 tab PO DAILY PRN (Reason: Anxiety) RF: 0 aspirin 81 mg tablet,delayed release (DR/EC) 1 tab PO DAILY RF: 0 pantoprazole 20 mg tablet,delayed release (DR/EC) 1 tab PO BID RF: 0 isosorbide mononitrate 60 mg tablet extended release 24 hr 1 tab PO QAM RF: 0 nifedipine 90 mg tablet extended release 24hr 1 tab PO DAILY RF: 0 hydralazine 50 mg tablet 2 tab PO TID RF: 0 zolpidem 5 mg tablet 1 tab PO BEDTIME PRN (Reason: Insomnia) RF: 0 buprenorphine-naloxone 8-2 mg film 2 strip sublingual DAILY RF: 0 Combivent Respimat 20-100 mcg/actuation mist 1 puff inhalation QID RF: 0 atorvastatin 80 mg tablet 1 tab PO BEDTIME RF: 0 clopidogrel 75 mg tablet 1 tab PO DAILY RF: 0 folic acid 1 mg tablet 1 tab PO DAILY RF: 0 ipratropium-albuterol 0.5 mg-3 mg(2.5 mg base)/3 mL Solution For Nebulization 3 ml inhalation Q6H 30 Days RF: 0 prednisone 20 mg tablet 40 mg PO DAILY Qty: 6 RF: 0 nicotine 21 mg/24 hr patch 24 hour 1 patch topical DAILY Qty: 30 RF: 0
--- NOTE | 2020-10-26 16:45 | ECG_ITS ---
Test Reason : PALPITATIONS Blood Pressure : / mmHG Vent. Rate : 067 BPM Atrial Rate : 067 BPM P-R Int : 178 ms QRS Dur : 096 ms QT Int : 418 ms P-R-T Axes : 069 043 065 degrees QTc Int : 441 ms Sinus rhythm with Premature atrial complexes Otherwise normal ECG When compared with ECG of 20-JUN-2020 12:34, Premature atrial complexes are now Present Referred By: Sergio Meier Electronically Signed By:CHRISTA WATERMAN
[2020-10-26 17:30] VITALS: PULSE 88
[2020-10-26 17:31] LABS: MANUAL DIFF FLAG NO
[2020-10-26 17:33] LABS: Basophils Absolute Auto 0.1 X10*3/uL (0.0-0.2); Basophils Percent Auto 0.6 % (0-2); Eosinophils Absolute Auto 0.2 X10*3/uL (0.0-0.4); Eosinophils Percent Auto 1.9 % (0-4); Hematocrit 38.6 % (42-52); Hemoglobin 12.2 g/dl (14.0-18.0); Imm Gran Abs Auto 0.05 X10*3/uL (0.00-0.03); Imm Gran Pct Auto 0.5 % (0.0-0.4); Mean Corpuscular HGB Conc 31.6 g/dl (31.0-36.0); Mean Corpuscular Hemoglobin 30.6 pg (27.0-33.0); Mean Corpuscular Volume 96.7 fL (80-98); Mean Platelet Volume 9.7 fL (9.4-12.4); Monocytes Absolute Auto 0.9 X10*3/uL (0.1-1.2); Monocytes Percent Auto 8.2 % (2-11); Neutrophils Absolute Auto 8.8 X10*3/uL (2.0-8.3); Neutrophils Percent Auto 79.8 % (45-73); Platelet Count 218 X10*3/uL (160-400); Red Blood Count 3.99 X10*6/uL (4.60-5.80); Red Cell Distribution Width 13.8 % (11.0-16.0); White Blood Count 11.1 X10*3/uL (4.8-10.8)
[2020-10-26 17:49] LABS: Anion Gap 13 (12-20); Blood Urea Nitrogen 19 mg/dL (9-16); Calcium 8.7 mg/dL (8.4-10.2); Carbon Dioxide 35 mmol/L (22-29); Chloride 96 mmol/L (96-108); Creatinine Clr Calc Pharmacy 59.4; Estimated Glomerular Filt Rate 55; Glucose Random 105 mg/dL (60-115); Potassium 3.7 mmol/L (3.3-5.1); Sodium 140 mmol/L (135-145)
[2020-10-26 17:57] LABS: Troponin-I High Sensitivity 17.1 ng/L (<3.5-35.0)
== END 2020-10-26 18:58 | disposition home or self-care (01) ==
PROVIDERS: Emergency Provider Internal Medicine; PCP Internal Medicine
DX: F43.0 Acute stress reaction (principal); R00.2 Palpitations; I10 Essential (primary) hypertension; J44.9 Chronic obstructive pulmonary disease, unspecified; F11.20 Opioid dependence, uncomplicated; F17.210 Nicotine dependence, cigarettes, uncomplicated; F12.90 Cannabis use, unspecified, uncomplicated; Z79.899 Other long term (current) drug therapy; Z79.82 Long term (current) use of aspirin; Z71.6 Tobacco abuse counseling
CPT/HCPCS: 36415; 80048; 84484; 85025; 93005; 99284

== ENCOUNTER 2020-11-13 21:25 | Emergency (ER) | payer OTHER, SELFPAY ==
--- NOTE | 2020-11-13 | ECG_ITS ---
Test Reason : CHEST PAIN Blood Pressure : / mmHG Vent. Rate : 077 BPM Atrial Rate : 077 BPM P-R Int : 182 ms QRS Dur : 094 ms QT Int : 424 ms P-R-T Axes : 079 061 072 degrees QTc Int : 479 ms Sinus rhythm with Premature atrial complexes Possible Left atrial enlargement Borderline ECG When compared with ECG of 26-OCT-2020 16:35, No significant change was found Referred By: Generic ED Physician Electronically Signed By:CHRISTA WATERMAN
--- NOTE | ~2020-11-13 | XR_ITS ---
EXAMINATION: XR CHEST CLINICAL INFORMATION: Chest pain COMPARISON: Chest x-ray June 20, 2020 TECHNIQUE: Frontal portable view of the chest was obtained. 9:51 PM FINDINGS: No significant abnormality is noted involving the heart, lungs, mediastinum, bony thorax or soft tissues. Orthopedic plate and screw at lower cervical spine. XR/XR chest 1V IMPRESSION: No acute abnormality of chest.
[2020-11-13 21:34] VITALS: BP 93/48; PULSE 71; RESP 20; TEMP 36.8; O2SAT 95; BMI 21.6
[2020-11-13 21:51] VITALS: BP 119/57; PULSE 75; RESP 16; TEMP 36.8; O2SAT 97
[2020-11-13 21:58] LABS: Basophils Absolute Auto 0.1 X10*3/uL (0.0-0.2); Basophils Percent Auto 0.4 % (0-2); Eosinophils Absolute Auto 0.3 X10*3/uL (0.0-0.4); Eosinophils Percent Auto 2.5 % (0-4); Hematocrit 38.3 % (42-52); Hemoglobin 12.2 g/dl (14.0-18.0); Imm Gran Abs Auto 0.05 X10*3/uL (0.00-0.03); Imm Gran Pct Auto 0.4 % (0.0-0.4); Lymphocytes Absolute Auto 1.9 X10*3/uL (1.2-4.9); Lymphocytes Percent Auto 15.2 % (20-40); MANUAL DIFF FLAG NO; Mean Corpuscular HGB Conc 31.9 g/dl (31.0-36.0); Mean Corpuscular Hemoglobin 31.1 pg (27.0-33.0); Mean Corpuscular Volume 97.7 fL (80-98); Mean Platelet Volume 9.3 fL (9.4-12.4); Monocytes Absolute Auto 1.3 X10*3/uL (0.1-1.2); Monocytes Percent Auto 10.6 % (2-11); Neutrophils Absolute Auto 8.8 X10*3/uL (2.0-8.3); Neutrophils Percent Auto 70.9 % (45-73); Platelet Count 213 X10*3/uL (160-400); Red Blood Count 3.92 X10*6/uL (4.60-5.80); Red Cell Distribution Width 14.4 % (11.0-16.0); White Blood Count 12.4 X10*3/uL (4.8-10.8)
[2020-11-13 22:14] LABS: Alanine Aminotransferase 13 U/L (0-40); Alkaline Phosphatase 53 U/L (39-117); Anion Gap 13 (12-20); Aspartate Amino Transferase 18 U/L (5-37); Bilirubin Total 0.3 mg/dL (0.0-1.0); Blood Urea Nitrogen 19 mg/dL (9-16); COVID-19 Test Negative (Negative); Calcium 8.8 mg/dL (8.4-10.2); Carbon Dioxide 36 mmol/L (22-29); Chloride 93 mmol/L (96-108); Creatinine Clr Calc Pharmacy 48.2; Estimated Glomerular Filt Rate 43; Glucose Random 102 mg/dL (60-115); Potassium 3.3 mmol/L (3.3-5.1); Sodium 139 mmol/L (135-145); Total Protein 5.9 g/dL (6.5-8.0)
[2020-11-13 22:18] LABS: Troponin-I High Sensitivity 22.7 ng/L (<3.5-35.0)
--- NOTE | 2020-11-13 22:19 | ED.CHESTPAIN ---
HPI - Chest Pain General Chief Complaint: Chest Pain Stated Complaint: CHEST PAIN Time Seen by Provider: 11/13/20 22:19 Source: patient Mode of arrival: ambulatory Limitations: no limitations History of Present Illness HPI narrative: Patient history of COPD on oxygen 2-3 L 24 hours history of CHF on diuretics comes here for chest pain started 2 hours prior to arrival pain is sharp in character localized to left side increases on movement also felt palpitation patient received 4 baby aspirin prior to arrival never had any known coronary artery disease in the past patient is on Plavix. Also patient complaining of increased shortness of breath cough for few days Related Data Home Medications Medication Instructions Recorded Confirmed albuterol sulfate 1 amp INHALATION Q6H PRN 06/09/20 06/20/20 aspirin 81 mg tablet,delayed 1 tab PO DAILY 06/09/20 06/20/20 release atorvastatin 80 mg tablet 1 tab PO BEDTIME 06/09/20 06/20/20 buprenorphine 8 mg-naloxone 2 mg 2 strip SUBLINGUAL DAILY 06/09/20 06/20/20 sublingual film carvedilol 25 mg tablet 1 tab PO BID 06/09/20 06/20/20 clonazepam 0.5 mg tablet 1 tab PO DAILY PRN 06/09/20 06/20/20 clopidogrel 75 mg tablet 1 tab PO DAILY 06/09/20 06/20/20 folic acid 1 mg tablet 1 tab PO DAILY 06/09/20 06/20/20 gabapentin 600 mg tablet 1 tab PO BID 06/09/20 06/20/20 hydralazine 50 mg tablet 2 tab PO TID 06/09/20 06/20/20 ipratropium 20 mcg-albuterol 100 1 puff INHALATION QID 06/09/20 06/20/20 mcg/actuation mist for inhalation (Combivent Respimat) isosorbide mononitrate 60 mg 1 tab PO QAM 06/09/20 06/20/20 tablet,extended release 24 hr losartan 50 mg tablet 1 tab PO DAILY 06/09/20 06/20/20 nifedipine 90 mg tablet,extended 1 tab PO DAILY 06/09/20 06/20/20 release 24 hr pantoprazole 20 mg tablet,delayed 1 tab PO BID 06/09/20 06/20/20 release trazodone 50 mg tablet 1 tab PO BEDTIME 06/09/20 06/20/20 zolpidem 5 mg tablet 1 tab PO BEDTIME PRN 06/09/20 06/20/20 Previous Rx's Medication Instructions Recorded ipratropium 0.5 mg-albuterol 3 mg 3 ml INHALATION Q6H 30 Days ml 06/23/20 (2.5 mg base)/3 mL nebulization soln nicotine 21 mg/24 hr daily 1 patch TOPICAL DAILY #30 ea 06/23/20 transdermal patch prednisone 20 mg tablet 40 mg PO DAILY #6 tab 06/23/20 benzonatate 100 mg capsule 100 mg PO TID PRN #20 cap 11/14/20 (Tessalon Perles) prednisone 20 mg tablet 40 mg PO DAILY #10 tab 11/14/20 Allergies Allergy/AdvReac Type Severity Reaction Status Date / Time KERI Inhibitors Allergy Wheezing Verified 06/09/20 17:52 HAIR DYE Allergy Unknown HIVES Uncoded 11/14/19 15:39 Review of Systems Review of Systems: Yes all other systems are reviewed and are negative PMFSH Past Medical History Medical History Alcohol abuse Chronic hypercapnic respiratory failure Chronic respiratory failure with hypoxia and hypercapnia Congestive heart failure COPD (chronic obstructive pulmonary disease) COPD exacerbation History of chronic carbon dioxide retention Impetigo Tobacco abuse Social History Social History Household Members: None Housing: House Do you presently have visiting nurse or other home services: Yes Alcohol intake: never Patient Tobacco Use Status: Current everyday Tobacco user Cigarette Packs Per Day: 1 Cigarettes Per Day: 4 Years Smoked: 30 Smoked in Last 30 Days: Yes Second Hand Smoke Exposure: Yes Use of substances other than those prescribed or required for medical reasons: No Substance Use Type: Marijuana Advance Directives: No Advance Directives Information Provided: Yes service: No Current occupational status: disabled Physical Exam Vital Signs: Vital Signs: Last Vital Signs Temp 98.2 F 11/13/20 21:51 Pulse 67 11/14/20 00:15 Resp 16 11/14/20 00:21 BP 132/68 11/14/20 00:00 Pulse Ox 94 11/14/20 00:00 Oxygen Flow Rate 3 11/13/20 21:34 Body Mass Index 21.6 Appearance: Alert. Oriented X3. In moderate distress on nasal oxygen 3 L saturating 97% Eyes: No pallor/ icterus ENT: Pharynx normal. Oral Mucosa moist Neck: Normal inspection. Neck supple. CVS: Normal heart rate and rhythm. Pulses normal. Respiratory: moderate respiratory distress. Equal air entry bilateral, bilateral basal crackles prolonged expiration Abdomen: Soft and nontender. Bowel sounds are present, no mass palpable, Skin: Skin warm and dry. Normal skin color. Normal skin turgor. Extremities: No lower extremity edema. No calf tenderness Neuro: Oriented X 3. No motor deficit. MDM - Chest Pain MDM Narrative Medical decision making narrative: Patient with pleuritic chest pain with cough chest x-ray negative for infiltrate noted increase in the troponin EKG without any ischemic changes patient feeling much better now after nebulizing treatment will discharge patient home on prednisone advised to continue nebulizer treatment at home Medical Records Data Attestation: I reviewed the patient's medical records. Lab Data Attestation: I reviewed the patient's lab results. Result diagrams: 11/13/20 21:50 11/13/20 21:50 Labs: Lab Results 11/13/20 11/13/20 11/13/20 Range/Units 21:50 21:50 21:50 WBC 12.4 H (4.8-10.8) X10*3/uL RBC 3.92 L (4.60-5.80) X10*6/uL Hgb 12.2 L (14.0-18.0) g/dl Hct 38.3 L (42-52) % MCV 97.7 (80-98) fL MCH 31.1 (27.0-33.0) pg MCHC 31.9 (31.0-36.0) g/dl RDW 14.4 (11.0-16.0) % Plt Count 213 (160-400) X10*3/uL MPV 9.3 L (9.4-12.4) fL Immature Gran % (Auto) 0.4 (0.0-0.4) % Neut % (Auto) 70.9 (45-73) % Lymph % (Auto) 15.2 L (20-40) % [place] % (Auto) 10.6 (2-11) % Eos % (Auto) 2.5 (0-4) % Baso % (Auto) 0.4 (0-2) % Lymph # (Auto) 1.9 (1.2-4.9) X10*3/uL [place] # (Auto) 1.3 H (0.1-1.2) X10*3/uL Eos # (Auto) 0.3 (0.0-0.4) X10*3/uL Baso # (Auto) 0.1 (0.0-0.2) X10*3/uL Abs Immat Gran (auto) 0.05 H (0.00-0.03) X10*3/uL Absolute Neuts (auto) 8.8 H (2.0-8.3) X10*3/uL Absolute Nucleated RBC 0.000 (0.0-0.012) X10*3/uL Nucleated RBC % (auto) 0.0 (0.0-0.2) /100WBC Sodium 139 (135-145) mmol/L Potassium 3.3 (3.3-5.1) mmol/L Chloride 93 L (96-108) mmol/L Carbon Dioxide 36 H (22-29) mmol/L Anion Gap 13 (12-20) BUN 19 H (9-16) mg/dL Creatinine 1.66 H (0.5-1.4) mg/dL Estim Creat Clear Calc 48.2 Estimated GFR 43 Random Glucose 102 (60-115) mg/dL Calcium 8.8 (8.4-10.2) mg/dL Total Bilirubin 0.3 (0.0-1.0) mg/dL AST 18 (5-37) U/L ALT 13 (0-40) U/L Alkaline Phosphatase 53 (39-117) U/L Troponin I High Sens 22.7 (<3.5-35.0) ng/L B-Natriuretic Peptide 124 H (<100) pg/mL Total Protein 5.9 L (6.5-8.0) g/dL Albumin 4.0 (3.5-5.0) g/dL COVID-19 (PRAVEEN) (Negative) COVID-19 Clin Com 11/13/20 11/14/20 Range/Units 21:50 00:30 WBC (4.8-10.8) X10*3/uL RBC (4.60-5.80) X10*6/uL Hgb (14.0-18.0) g/dl Hct (42-52) % MCV (80-98) fL MCH (27.0-33.0) pg MCHC (31.0-36.0) g/dl RDW (11.0-16.0) % Plt Count (160-400) X10*3/uL MPV (9.4-12.4) fL Immature Gran % (Auto) (0.0-0.4) % Neut % (Auto) (45-73) % Lymph % (Auto) (20-40) % [place] % (Auto) (2-11) % Eos % (Auto) (0-4) % Baso % (Auto) (0-2) % Lymph # (Auto) (1.2-4.9) X10*3/uL [place] # (Auto) (0.1-1.2) X10*3/uL Eos # (Auto) (0.0-0.4) X10*3/uL Baso # (Auto) (0.0-0.2) X10*3/uL Abs Immat Gran (auto) (0.00-0.03) X10*3/uL Absolute Neuts (auto) (2.0-8.3) X10*3/uL Absolute Nucleated RBC (0.0-0.012) X10*3/uL Nucleated RBC % (auto) (0.0-0.2) /100WBC Sodium (135-145) mmol/L Potassium (3.3-5.1) mmol/L Chloride (96-108) mmol/L Carbon Dioxide (22-29) mmol/L Anion Gap (12-20) BUN (9-16) mg/dL Creatinine (0.5-1.4) mg/dL Estim Creat Clear Calc Estimated GFR Random Glucose (60-115) mg/dL Calcium (8.4-10.2) mg/dL Total Bilirubin (0.0-1.0) mg/dL AST (5-37) U/L ALT (0-40) U/L Alkaline Phosphatase (39-117) U/L Troponin I High Sens 21.1 (<3.5-35.0) ng/L B-Natriuretic Peptide (<100) pg/mL Total Protein (6.5-8.0) g/dL Albumin (3.5-5.0) g/dL COVID-19 ([facility]AVEEN) Negative (Negative) COVID-19 Clin Com See Note ECG Data ECG #1: Attestation: I personally reviewed and interpreted this ECG as follows: Interpretation: Normal sinus rhythm with PACs heart rate 77 beats per minute no acute ST T wave changes no acute ischemia Discharge Plan Discharge Clinical Impression: Chest pain Qualifiers: Chest pain type: precordial pain Qualified Code(s): R07.2 - Precordial pain Patient Disposition: Home, Self-Care Instructions: Chest Pain (ED), Chronic Bronchitis (ED) Additional Instructions: Continue her nebulizing treatment and oxygen at home Prednisone for inflammation Cough drops as prescribed Follow with PCP if not better Prescriptions: New prednisone 20 mg tablet 40 mg PO DAILY Qty: 10 RF: 0 benzonatate [Tessalon Perles] 100 mg capsule 100 mg PO TID PRN (Reason: cough) Qty: 20 RF: 0 No Action losartan 50 mg tablet 1 tab PO DAILY RF: 0 carvedilol 25 mg tablet 1 tab PO BID RF: 0 gabapentin 600 mg tablet 1 tab PO BID RF: 0 albuterol sulfate 2.5 mg /3 mL (0.083 %) solution for nebulization 1 amp inhalation Q6H PRN (Reason: Wheezing) RF: 0 trazodone 50 mg tablet 1 tab PO BEDTIME RF: 0 clonazepam 0.5 mg tablet 1 tab PO DAILY PRN (Reason: Anxiety) RF: 0 aspirin 81 mg tablet,delayed release (DR/EC) 1 tab PO DAILY RF: 0 pantoprazole 20 mg tablet,delayed release (DR/EC) 1 tab PO BID RF: 0 isosorbide mononitrate 60 mg tablet extended release 24 hr 1 tab PO QAM RF: 0 nifedipine 90 mg tablet extended release 24hr 1 tab PO DAILY RF: 0 hydralazine 50 mg tablet 2 tab PO TID RF: 0 zolpidem 5 mg tablet 1 tab PO BEDTIME PRN (Reason: Insomnia) RF: 0 buprenorphine-naloxone 8-2 mg film 2 strip sublingual DAILY RF: 0 Combivent Respimat 20-100 mcg/actuation mist 1 puff inhalation QID RF: 0 atorvastatin 80 mg tablet 1 tab PO BEDTIME RF: 0 clopidogrel 75 mg tablet 1 tab PO DAILY RF: 0 folic acid 1 mg tablet 1 tab PO DAILY RF: 0 ipratropium-albuterol 0.5 mg-3 mg(2.5 mg base)/3 mL Solution For Nebulization 3 ml inhalation Q6H 30 Days RF: 0 prednisone 20 mg tablet 40 mg PO DAILY Qty: 6 RF: 0 nicotine 21 mg/24 hr patch 24 hour 1 patch topical DAILY Qty: 30 RF: 0
[2020-11-13 22:55] LABS: B Type Natriuretic Peptide 124 pg/mL (<100)
[2020-11-14] VITALS: BP 132/68; PULSE 84; RESP 16; O2SAT 94
[2020-11-14] MEDS: Albuterol Sulfate (0.083%) 2.5 MG/3 ML VIAL.NEB 5 MG INHALE (00:14)
[2020-11-14 00:15] VITALS: PULSE 67; O2SAT 85
[2020-11-14] MEDS: Albuterol/Iprat 2.5/0.5MG 3 ML AMPUL.NEB INHALE (00:15)
[2020-11-14 00:21] VITALS: RESP 16
[2020-11-14] MEDS: Morphine Sulfate 2 MG/ML CARTRIDGE IVPUSH (00:21)
[2020-11-14 00:56] LABS: Troponin-I High Sensitivity 21.1 ng/L (<3.5-35.0)
--- NOTE | 2020-11-14 01:53 | PC.NURSE ---
GOING TO MEDICATE AND DISCHARGE PATIENT. PATIENT VERBALLY ABUSING THIS STAFF MEMBER THE FUCK, HOW DARE YOU DISCHARGE ME AT THIS TIME, I CAN;T GET HOME EXPLAINED TO THE PATIENT THAT THE MD HAS REVIEWED HIS RESULTS FROM HIS VISIT AND REEVALUATED PATIENT AND HAS DEEMED HIM ABLE TO GET HOME. PATIENT HAS HIS HOME O2 DEVICE WITH HIM. GET ME A FUCKING UBER EXPLAINING THAT THIS RN IS NOT ABLE TO GET HIM AN UBER BUT OFFERED A BUS PASS. PATIENT TELLING THIS RN DON'T FUCKING BOTHER . I HAVE NO WOOD IN THE DOCTORS HERE, I WILL NEVER COME BACK IF I CAN'T SAY AND DISCHARGE ME NOW PATIENT CALLING MULTIPLE PEOPLE FOR [facility] HOME. REFUSING MEDICATION I DON'T NEED THAT SHIT INFORMED THAT HE HAS A PRESCRIPTION FOR THEM WAITING AT THE PHARMACY WELL IF HE CHOSE TO PICK THEM UP. PATIENT REFUSING TO SIGN DISCHARGE PAPERWORK. GIVEN WHEELCHAIR SO PATIENT COULD SIT IN THE WAITING ROOM AWAITING A RIDE. PATIENT SWATTING AWAY AT STAFF NURSE WHO ATTEMPTED TO ASSIST PATIENT.
== END 2020-11-14 02:11 | disposition home or self-care (01) ==
PROVIDERS: Emergency Provider Internal Medicine; PCP Internal Medicine
DX: R07.9 Chest pain, unspecified (principal); J44.9 Chronic obstructive pulmonary disease, unspecified; F12.90 Cannabis use, unspecified, uncomplicated; Z20.822 Contact with and (suspected) exposure to COVID-19; Z99.81 Dependence on supplemental oxygen; Z79.899 Other long term (current) drug therapy; F17.210 Nicotine dependence, cigarettes, uncomplicated; Z71.6 Tobacco abuse counseling
CPT/HCPCS: 36415; 71045; 80053; 83880; 84484; 85025; 87635; 93005; 94640; 94644; 96374; 96375; 99284; J2270